=== PATIENT | female | born 1945 | race Caucasian/White ===

== ENCOUNTER 2018-08-06 05:56 | Day surgery (SDC) | payer MEDICARE ==
[2018-08-06] MEDS ORDERED: Lactated Ringers 1,000 ML IV SCH (06:30)
--- NOTE | 2018-08-06 08:50 | OP ---
SURGERY DATE/TIME: 08/06/2018 0751 PREOPERATIVE DIAGNOSIS: Abdominal pain, recent diagnosis of diverticulosis, previous history of colon polyp. POSTOPERATIVE DIAGNOSIS: Small polyp in the cecum and moderate sigmoid diverticulosis. PROCEDURE: Colonoscopy. SURGEON: Dr. Sosa. ANESTHESIA: MAC. Medications given by anesthesia department. HISTORY: The patient is a 72 year-old white female who found herself in overnight stay at [facility] for diagnosis of diverticulosis. She reports she has been having abdominal pain for the past five months. She also reports previous colonoscopy over ten years ago which a polyp was found and removed. The patient was found at this point to need to have endoscopic evaluation. She was appraised of the risks of the procedure including the risk of perforation, phlebitis, untoward reaction to medication, bleeding and missed lesions. The patient verbalized her understanding and desired to have the procedure performed. DESCRIPTION OF PROCEDURE: The patient was given the medications by the anesthesia department. She had continuous pulse oximetry, ECG monitoring, intermittent blood pressure monitoring and tidal CO2 monitoring during the examination. She was placed in the left lateral decubitus position. A digital rectal examination was performed and revealed normal anal sphincter tone and no masses. The flexible Olympus pediatric colonoscope was used to intubate the rectum. A view of the colon was developed sequentially to the cecum. Upon insertion and withdrawal was noted a small polyp in the cecum and this was destroyed using one pass of cold biopsy forceps otherwise it was noted moderate sigmoid diverticulosis. No other mucosal lesions being encountered. The scope was removed from the patient who tolerated the procedure well and was sent back to OP recovery in good condition. The prep was noted to be fair to good.
[2018-08-06] MEDS ORDERED: Zofran 4 MG/2 ML VIAL IV STA (09:02)
[2018-08-06] MEDS ORDERED: Lactated Ringers 1,000 ML IV ONE ×2 (09:27→09:30)
[2018-08-06] MEDS ORDERED: Compazine 10 MG/2 ML IV ONE (09:29)
[2018-08-06 10:21] VITALS: O2SAT 97
[2018-08-06 10:43] VITALS: BP 140/74; PULSE 70
== END 2018-08-06 10:45 | disposition home or self-care (01) ==
LOC: SDC 05:56
PROVIDERS: ATTEND Family Medicine
DX: D12.0 Benign neoplasm of cecum (principal); K57.30 Diverticulosis of large intestine without perforation or abscess without bleeding; R10.9 Unspecified abdominal pain; Z86.010 Personal history of colon polyps
CPT/HCPCS: 88305; 99100; J2405

== ENCOUNTER 2018-10-25 08:42 | Inpatient (IN) | payer MEDICARE ==
[2018-11-22] MEDS ORDERED: Levofloxacin 500MG/100ML D5W 500 MG/100 ML BAG IV STA (08:08)
[2018-11-22] MEDS ORDERED: CLINDAMYCIN-D5W 900 MG/50 ML*** 900 MG/50 ML BAG IV STA (08:12)
[2018-11-22] MEDS ORDERED: Lactated Ringers 1,000 ML IV ONE ×6 (08:24→14:51)
[2018-11-22] MEDS ORDERED: Levofloxacin 500MG/100ML D5W 500 MG/100 ML BAG IV ONE (08:24)
--- NOTE | 2018-11-22 08:25 | HP ---
DATE OF SURGERY: 11/22/2018 HISTORY OF PRESENT ILLNESS: The patient is a 73 year-old with significant diverticulitis attacks, has repeated recurring attacks. She is interested in surgical intervention. PAST MEDICAL HISTORY: Heart disease, hypertension, diabetes, hyperlipidemia, seasonal affective disorder, hypertension, chronic obstructive pulmonary disease. PAST SURGICAL HISTORY: Hysterectomy. Cholecystectomy in the past. Orthopedic surgery right arm in the past. The patient had colonoscopy by Dr. Sosa with moderate sigmoid colon diverticulosis. MEDICATIONS: Albuterol, Alprazolam, Ventolin HFA, Citalopram, hydrochlorothiazide, Symbicort, lisinopril, water pill, Singulair, omeprazole, magnesium oxide. ALLERGIES: PENICILLIN. SULFA. FLAGYL. ZYRTEC. FAMILY HISTORY: Negative in regards to this problem. SOCIAL HISTORY: No smoking or alcohol abuse. REVIEW OF SYSTEMS: Fourteen systems reviewed. No chest pain or palpitations other systems negative or noncontributory as above and per preadmission questionnaire. PHYSICAL EXAMINATION: GENERAL: No acute distress. HEENT: Sclerae nonicteric. NECK: No JVD. CHEST: Equal excursion, nonlabored breathing. CVS: Regular rate and rhythm. ABDOMEN: Soft. No peritoneal signs. EXTREMITIES: No significant edema. NEURO: Alert, oriented, moving extremities symmetrically. No gross motor deficits noted. IMPRESSION: Recurrent symptomatic diverticular disease and diverticulitis attacks. The patient has had enough episodes and desires proceed with surgical intervention. She and her family were discussed at length the risk of the procedure, consideration of resection, partial colectomy with planned re-anastomosis. Plan laparoscopic assisted partial colectomy with re-anastomosis possible open as well as colonoscopy. She understands the general risk of anesthesia, deep venous thrombosis, pulmonary embolism, pneumonia, risk of anastomotic complications or dehiscence, leak or fistula formation, risk of ureter, bowel or bladder issues or injury, risk of adhesions or obstruction, risk of cardiopulmonary event, risk of ileus, risk of hernia formation possible need for much larger incision. She understands we will start out laparoscopically, will need some incision to remove the specimen and depending on the degree of her adhesions. She understands all the above but not limited to. She also understands the fact of what we excise will not have recurrent diverticulitis but if she has some diverticulitis throughout the colon she could have recurrent attacks in the remaining colon in the future. She understands and agrees to the planned procedure, will proceed with laparoscopic assisted partial colectomy possible open, colonoscopy and plan re-anastomosis.
[2018-11-22] MEDS ORDERED: ENTEREG 12 MG PO SCH (08:30)
[2018-11-22] MEDS ORDERED: XYLOCAINE 1% HCL 20 ML MDV ONE (08:40)
[2018-11-22] MEDS ORDERED: Sensorcaine 0.25% 10 ML ONE (09:06)
[2018-11-22] MEDS: Lactated Ringers 1,000 ML IV SCH ×2 (09:22→09:58)
[2018-11-22] MEDS ORDERED: Versed 2 MG/2 ML Injection IV ONE (09:30)
[2018-11-22] MEDS ORDERED: Transderm Scop 1.5MG Patch TOP ONE (09:31)
[2018-11-22] MEDS ORDERED: Versed 2 MG/2 ML Injection ONE ×2 (09:33→11:32)
[2018-11-22] MEDS ORDERED: Transderm Scop 1.5MG Patch ONE (09:34)
[2018-11-22] MEDS ORDERED: DUONEB 0.5-3 MG/3 ml Neb IH ONE ×2 (10:37→10:40)
[2018-11-22] MEDS ORDERED: SUBLIMAZE 100 MCG/2 ML ONE (11:32)
[2018-11-22] MEDS ORDERED: Amidate 20 MG/10 ML IV ONE (11:32)
[2018-11-22] MEDS ORDERED: Zemuron 100 MG/10 ML ONE ×3 (11:32→15:05)
[2018-11-22] MEDS ORDERED: Astramorph-Pf 5 MG/10 ML ONE (11:34)
[2018-11-22] MEDS ORDERED: XYLOCAINE 2%/Epi 1:200000 20ML VIAL MPF ONE (11:35)
[2018-11-22 11:39] LABS: ABO TYPING O; Antibody Screen NEGATIVE (NEGATIVE); RH TYPING POSITIVE
[2018-11-22 13:36] LABS: A-aADO2 74; ABG HEMOGLOBIN 12.5; ABG POTASSIUM 3.4 (3.5-5.1); ARTERIAL BLD GAS O2 SATURATION 99.9 % (95-100); ARTERIAL BLOOD GAS BASE EXCESS -1.8 (-2.0-2.0); ARTERIAL BLOOD GAS FIO2 50 %; ARTERIAL BLOOD GAS PCO2 39 mmHg (35-45); ARTERIAL BLOOD GAS PO2 234 mmHg (75-100); ARTERIAL BLOOD GAS pH 7.38 (7.35-7.45); CARBOXYHEMOGLOBIN 1.8 % THgb (0.0-6.9); HCO3- 23.1 (22-28); HGB O2 SAT 96.6 g/dF (94-100); Methhemoglobin 1.4 % (1.4-1.5); paO2 pAO1 0.76
[2018-11-22 13:37] LABS: ABG SITE ARTLINE
[2018-11-22] MEDS ORDERED: MARCAINE 0.5%-EPI 1:200,000 VL IJ ONE (14:03)
[2018-11-22 15:03] LABS: Appearance CLEAR (CLEAR); Bilirubin NEGATIVE (NEGATIVE); Blood SMALL Ery/ul (0-5); Glucose NEGATIVE (NEGATIVE); Ketones TRACE (NEGATIVE); Leukocyte Esterase NEGATIVE (NEGATIVE); Mucus SLIGHT /HPF (NEGATIVE); Nitrite NEGATIVE (NEGATIVE); Protein,Urine Dip NEGATIVE (Negative); Specific Gravity 1.005 (1.005-1.025); Urobilinogen NEGATIVE mg/dL (0-1)
[2018-11-22] MEDS ORDERED: BREVIBLOC 100 MG/10 ML IV ONE (16:11)
[2018-11-22] MEDS ORDERED: BRIDION 200MG/2ML IV ONE (16:19)
[2018-11-22] MEDS ORDERED: Zofran 4 MG/2 ML VIAL ONE ×2 (16:20→17:22)
[2018-11-22] MEDS ORDERED: Compazine 10 MG/2 ML ONE (17:38)
[2018-11-22] MEDS ORDERED: Zofran 4 MG/2 ML VIAL IV PRN (19:29)
[2018-11-22] MEDS ORDERED: BENADRYL 50 MG/ML IV PRN (19:29)
[2018-11-22] MEDS ORDERED: DEMEROL 50 MG IV PRN (19:29)
[2018-11-22] MEDS ORDERED: MORPHINE SULFATE 2 MG INJ IV PRN (19:29)
[2018-11-22] MEDS ORDERED: Nubain 10 MG/ML IV PRN (19:29)
[2018-11-22] MEDS ORDERED: CLARITIN 10 MG PO PRN (19:29)
[2018-11-22] MEDS ORDERED: Narcan 0.4 MG/ML IV PRN (19:29)
[2018-11-22] MEDS ORDERED: HOLD NARCOTIC ANALGESICS AND SEDATIVES X24 HR MC PRN (19:29)
[2018-11-22] MEDS ORDERED: TYLENOL 325 MG PO PRN (20:12)
[2018-11-22] MEDS ORDERED: DEXTROSE 5% -NACL 0.9% 1000 ML + KCl 20 MEQ 1,000 ML IV SCH (20:30)
[2018-11-22] MEDS ORDERED: DEXTROSE 5% -NACL 0.9% 1000 ML + KCl 20 MEQ 1,000 ML IV ONE (20:59)
[2018-11-22] MEDS: Sodium Chloride 0.9% 10 ML FLUSH Syringe IJ SCH ×2 (21:00→21:05)
[2018-11-22] MEDS: ENTEREG 12 MG PO SCH (21:06)
[2018-11-22] MEDS: D5W/0.45NS W/ 20mEq KCl 1000 ML 1,000 ML IV SCH (22:57)
[2018-11-23] MEDS: Sodium Chloride 0.9% 10 ML FLUSH Syringe IJ SCH ×3 (04:57→22:28)
[2018-11-23] MEDS: PERCOCET TABLET 5/325MG PO PRN ×5 (04:57→17:33)
[2018-11-23] MEDS ORDERED: PROVENTIL COMMON CANISTER IH PRN (05:30)
[2018-11-23] MEDS ORDERED: Advair Hfa 230/21 Mcg COMMON CANISTER IH SCH (07:00)
[2018-11-23] MEDS ORDERED: TYLENOL 325 MG PO PRN (07:14)
[2018-11-23] MEDS ORDERED: xanAX 0.25 MG PO SCH (07:30)
[2018-11-23] MEDS: D5W/0.45NS W/ 20mEq KCl 1000 ML 1,000 ML IV SCH ×2 (08:26→17:01)
--- NOTE | 2018-11-23 09:09 | OP ---
SURGERY DATE/TIME: 11/22/2018 1147 PREOPERATIVE DIAGNOSIS: Recurrent diverticulitis concentrated in the sigmoid area, need for resection. POSTOPERATIVE DIAGNOSES: 1) Recurrent diverticulitis concentrated in the sigmoid area, need for resection, phlegmon reaction left lower quadrant to the distal descending. 2) Left inguinal hernia. PROCEDURES: 1) Laparoscopic assisted partial left colectomy and primary colorectal anastomosis (25 EA). 2) Laparoscopic take down of splenic flexure. 3) Completion colonoscopy to transverse colon (to confirm airtight viable tension-free colorectal anastomosis). 4) Laparoscopic repair left inguinal hernia (suture). SURGEON: Dr. Jay Hays. ANESTHESIA: General. ESTIMATED BLOOD LOSS: 75 cc. INDICATIONS: As noted above. Risks and benefits explained in detail but not limited to and consent obtained. DESCRIPTION OF PROCEDURE AND FINDINGS: The patient is taken to the operating room. General anesthesia induced. Abdomen prepped and draped in usual sterile fashion. After official time out and no disagreement with planned procedure, she was placed in lithotomy position. Incision made supraumbilical area. Fascia grasped. Veress needle inserted. Pneumoperitoneum accomplished opening pressure 0 to 15. A 5 mm bladeless and camera were inserted without difficulty followed by left upper quadrant 5 mm port, left lower quadrant 5 mm port. Otherwise there is a phlegmon reaction of the diverticula in the left lower quadrant. It was felt it needed taken down, taking splenic flexure down and this was accomplished at white line of Toldt. Dissection carried up towards the splenic flexure with aid of cautery and then the LigaSure device was used to take the splenic flexure down carefully mobilizing quite a length of colon downward for tension-free anastomosis later in the procedure. At this point 7 cm lower midline incision was made. Dissection carried down through the peritoneum, midline entered sharply and carefully this midline 7 cm incision. GelSeal cap was placed and some of these concrete adhesions along the left pelvic side wall were taken down to the shelving portion to allow it to be free enough. Left ureter was visualized noted and the right ureter was gently protected as well. The colon was carefully inspected. In the distal descending as well as the sigmoid was carefully visualized. The patient had some diverticula throughout it appeared but it appeared to be soft pliable colon proximal to the thickened or phlegmon scarred in distal descending and sigmoid colon. To allow for enough length to reach the rectum, it was felt this wound could drain part of the descending colon. Transecting EndoGIA stapler mesentery taken down and divided with LigaSure device. At this point for better visualization the abdomen was re-insufflated and GelSeal cap placed back on and during the remainder of the dissection taken the mesentery down with aid of LigaSure device. It should be noted that this is not a cancer operation and there was no point in trying to remove old sundeep compartments. Phlegmon part of the colon was carefully taken down to the rectal area which was carefully cleared circumferentially. The contour stapler was then used to transect the rectal stump without difficulty. The specimen is passed off. Again, the colon had been much more thicker, more concentrated diverticula than soft, pliable and there seemed to be a few diverticula. It was felt trying to take any additional length might risk tension problems on anastomosis and add anastomotic complications. As this was pliable, much better looking colon it was felt anastomosis should be created here. The patient had been explained short of taking the whole colon out, she was at risk of having some other diverticular attacks down the road. Hopefully taking out this part of the left colon would reduce the incidence. At this point the wound carefully inspected. The ureters had been protected on the left and the right. Good hemostasis was noted. The proximal limb easily reached the rectal stump and was tension-free and not a lot of extra length left and tension-free environment. Gauze pads were packed around the wound protector. The proximal colon limb was carefully opened. Sizes were checked. It was felt she had quite a small colon and a largest size that could be used is a 25 EA. Going larger than that would only split the colon and create risk of complications. Therefore EA-25 was opened and placed proximally after getting tip and then was restapled and the vein tip passed through adjacent to the staple line secured with 3-0 PDS, this was followed by #1 down below and the EA sizer easily passed up through the rectum and this was accomplished. We had to take time to reposition on the table. At this point the 25 EA ligature was carefully passed up the rectum to the staple line just right at the staple line itself, directly adjacent to the mid portion of the staple line. The mid portion of the staple line snapped on to the anvil and then stapler was then slowly and carefully tightened, enveloping entrapping any extraneous tissue in the anastomosis. Once this was accomplished the stapler carefully fired starting in the green zone. It was then backed off and these were removed and passed off. Saline was instilled into the pelvis. The proximal end of the colon carefully pinched off with the tech field administrative assistant with the scope safely passed through the anastomosis widely patent, viable, tension-free and was air tight. There was a little pulsatile ooze right at the staple line and this was watched for a few seconds. Good hemostasis noted. There were no signs of any active bleeding. It was felt there was no other intervention warranted. Again, there was a quite viable, tension-free widely patent anastomosis that was air tight. The scope was then passed up through the transverse colon and pulled out. The colon was then decompressed. It should be noted that prep was not great as she had some solid stool throughout the colon. The colon and rectum were decompressed. The scope was removed. Pictures had been taken. At this point gloves and gowns were changed. DIANA drain placed in the left gutter out through a lateral port wound. DIANA drain placed to bulb suction. The abdomen was re-insufflated. Copious amount of irrigation irrigating until clear. Splenic flexure she had good hemostasis. No signs of any active bleeding. Lap count, instrument counts were correct. It should be noted that just prior to decompressing pneumoperitoneum, she definitely had a left inguinal hernia. Concern whether some small bowel could be trapped in this down the road. It was felt that this would warrant repair laparoscopically. 0 PDS was used to suture close and repair this hernia in a purse string fashion, repairing the hernia. Again, it was not safe to use mesh given the limited prepped colon and due to anastomosis. Copious amount of irrigation irrigating until clear. The hernia repaired with PDS suture. At this point pneumoperitoneum was decompressed. Ports removed. The wound protector had been removed, clean gloves and instruments were used. The fascia was then closed in sequential running 0 PDS. Subcu irrigated out. Skin loosely stapled. Some Iodoform packing placed to allow for any drainage. Port incisions were closed with staple as well. The patient tolerated the procedure well. Anesthesia had done intrathecal earlier and had planned to do some tap blocks in addition. Sterile dressing and abdominal binder. The patient tolerated the procedure well. There were no immediate complications. Findings discussed with the family out in the waiting area. We had taken out the most severe diverticular segment. She had quite a few diverticula throughout the colon. There is small risk of other attacks down the road but hopefully removing this part of the colon greatly improves her overall situation.
--- NOTE | 2018-11-23 09:20 | PCM.HP ---
History of Present Illness - Chief Complaint Chief Complaint: Partial Colectomy with reanastamosis History of Present Illness: is a 73 year old female pt of mine from [facility] with pmhx asthma, htn, hyperlipidemia, diverticulitis, and hyperglycemia who had a partial colectomy with reanastamosis yesterday with Dr. Kilgore. She has been doing well, pain controlled, 07/07 currently. Not passing gas yet. - Review of Systems Constitutional: No Fever Respiratory: No Cough Abdominal/Gastrointestinal: Abdominal Pain Medications & Allergies Home Medications: Home Medication List Alprazolam 0.25 mg [xanAX 0.25 MG] 0.25 mg PO UD 07/29/18 [History Confirmed 11/22/18] Hydrocodone Bit/Acetaminophen [Hydrocodon-Acetaminoph 7.5-325] 1 each PO UD 05/18 [History Confirmed 11/22/18] Lisinopril [Zestril] 40 mg PO DAILY 07/29/18 [History Confirmed 11/22/18] Budesonide/Formoterol Fumarate [Symbicort 160-4.5 Mcg Inhaler] 6 gm IH DAILY [History Confirmed 11/22/18] Allergies/Adverse Reactions: Allergies Allergy/AdvReac Type Severity Reaction Status Date / Time Penicillins Allergy Unknown Verified 11/22/18 11:16 Sulfa (Sulfonamide AdvReac vomiting, Verified 11/22/18 11:16 Antibiotics) dizziness [Sulfa(Sulfonamide Antibiotics)] - Past Medical History Past Medical History: Yes Neurological History: Migraines ENT History: No Pertinent History Cardiac History: High Cholesterol, Hypertension Respiratory History: Asthma Endocrine Medical History: No Pertinent History Musculoskelatal History: No Pertinent History GI Medical History: Hemorrhoids History: No Pertinent History Pyscho-Social History: No Pertinent History Reproductive Disorders: No Pertinent History, Fibroids Comment: lung mass, mitral valve regurgitation. TMJ - Female History Are you now?: No - Past Surgical History Past Surgical History: Yes Neuro Surgical History: No Pertinent History Cardiac History: No Pertinent History Respiratory Surgery: No Pertinent History GI Surgical History: Cholecystectomy Genitourinary Surgical Hx: No Pertinent History Musculskeletal Surgical Hx: Orthopedic Surgery Female Surgical History: Hysterectomy Other Surgical History: fx rt shoulder 2011 w/ salo placed - Social History Smoking Status: Never smoker Exposure to second hand smoke: No Alcohol: None Drug Use: none - Physical Exam Vital Signs: Vital Signs - 24 hr Temp Pulse Resp BP BP BP BP 11/23/18 08:00 97 F 78 18 109/47 97/50 102/47 11/23/18 06:04 75 20 11/23/18 04:00 99.3 F 84 18 111/37 103/71 11/23/18 00:01 77 11/23/18 00:00 77 14 122/39 11/22/18 23:00 77 14 116/37 11/22/18 22:00 75 14 115/38 11/22/18 21:15 73 13 130/42 11/22/18 20:45 72 13 116/37 11/22/18 20:00 98.3 F 73 14 130/42 11/22/18 19:45 80 17 151/56 11/22/18 19:37 11/22/18 19:30 98.3 F 73 17 126/48 130/41 11/22/18 10:48 68 16 11/22/18 10:44 98.7 F 71 16 121/98 11/22/18 09:54 98.7 F 71 16 121/98 11/22/18 09:39 98.7 F 71 16 121/98 Pulse Ox 11/23/18 08:00 96 11/23/18 06:04 97 11/23/18 04:00 98 11/23/18 00:01 11/23/18 00:00 11/22/18 23:00 98 11/22/18 22:00 98 11/22/18 21:15 99 11/22/18 20:45 100 11/22/18 20:00 99 11/22/18 19:45 98 11/22/18 19:37 98 11/22/18 19:30 99 11/22/18 10:48 95 11/22/18 10:44 98 11/22/18 09:54 98 11/22/18 09:39 98 Oxygen-Last 24 hours O2 Percentage 1 Liter = 24% O2 Percentage 2 Liters = 28% O2 Percentage 2 Liters = 28% O2 Percentage 2 Liters = 28% O2 Percentage 2 Liters = 28% O2 Percentage 2 Liters = 28% O2 Percentage 2 Liters = 28% O2 Percentage 2 Liters = 28% O2 Percentage 2 Liters = 28% O2 Percentage 2 Liters = 28% General Appearance: no apparent distress, alert Neurologic Exam: oriented x 3, cooperative Eye Exam: eyes nml inspection Ears, Nose, Throat Exam: dry mucous membranes Respiratory Exam: normal breath sounds, lungs clear, No crackles/rales, No rhonchi, No wheezing Cardiovascular Exam: regular rate/rhythm, normal heart sounds, No murmur Gastrointestinal/Abdomen Exam: soft, tenderness, other (dressing dry, intact. OCTAVIA drain present with serosanguinous drainage), No normal bowel sounds ( hypoactive but present) Back Exam: normal inspection, No rash Extremity Exam: normal inspection, No pedal edema, No swelling Skin Exam: normal color, warm, dry, No rash Wound Assessment: Skin/Wound Assessment Wound/Incision Assessment Start: 11/22/18 16: 57 Text: Status: Active Freq: Q4H Protocol: Document 11/23/18 08:00 SWATI (Rec: 11/23/18 08:35 [id number]) Wound/Incision Assessment Abdomen Wound Assessment Shift Assessment Wound Type Incision Wound Stage Non Pressure Wound Dressing Status Dry & Intact Drainage circled Drainage Amount Minimal Drainage Description Sanguineous Drainage Odor None/Absent General Appearance Clean/Dry Primary Dressing bandaids;gauze dressing Comment Pt has 3 puncture sites with bandaids cdi; 2 sites with gauze 4x4 dressing- midline site has a shadow of sangeous drainage noted- drainage marked with no additional at this time; pt has a octavia drain to left abdomen which has serosangeous drainage (60ml) noted and bulb is compressed. Left Abdomen Drain Type OCTAVIA drain Drainage Description Serosanguineous Odor None/Absent Wound Photo Photo Taken No Results - Labs Lab/Micro Results: Lab Results-Last 24 Hours 11/22/18 11/22/18 11/22/18 Range/Units 10:20 12:05 13:33 Puncture Site ARTLINE pCO2 39 (35-45) mmHg pO2 234 H* (75-100) mmHg Base Excess -1.8 (-2.0-2.0) O2 Saturation 96.6 (94-100) g/dF ABG pH 7.38 (7.35-7.45) ABG HCO3 23.1 (22-28) ABG O2 Sat (Measured) 99.9 (95-100) % Remi Test NOT APPLICABLE A-a Gradient 74 a/A Ratio 0.76 Hemoglobin 12.5 Carboxyhemoglobin 1.8 (0.0-6.9) % THgb Methemoglobin 1.4 (1.4-1.5) % Potassium 3.4 L (3.5-5.1) Temperature 37.0 C POC O2 Flow Rate 50 % Urine Color STRAW (YELLOW) Urine Appearance CLEAR (CLEAR) Urine pH 6.0 (5-6) Ur Specific Tolstoy 1.005 (1.005-1.025) Urine Protein NEGATIVE (Negative) Urine Ketones TRACE (NEGATIVE) Urine Blood SMALL (0-5) Deon/ul Urine Nitrite NEGATIVE (NEGATIVE) Urine Bilirubin NEGATIVE (NEGATIVE) Urine Urobilinogen NEGATIVE (0-1) mg/dL Ur Leukocyte Esterase NEGATIVE (NEGATIVE) Urine WBC (Auto) NONE (0-5) /HPF Urine RBC (Auto) NONE (0-2) /HPF U Epithel Cells (Auto) NONE (FEW) /HPF Urine Bacteria (Auto) NONE (NEGATIVE) /HPF Urine Mucus (Auto) SLIGHT (NEGATIVE) /HPF Urine Glucose NEGATIVE (NEGATIVE) mg/dL ABO Group O Rh Factor POSITIVE Antibody Screen NEGATIVE (NEGATIVE) - Other Procedures and Tests Respiratory Therapy 11/22/18 10:48 Respiratory Therapy Assessment DAILY 11/22/18 10:49 Peak Expiratory Flow Rate ONCE 11/22/18 19:29 Oxygen Nasal Cannula 3 lpm Assessment/Plan (1) S/P partial colectomy Current Visit: Yes Status: Acute Assessment & Plan: POD #1, she seems to be doing quite well. Per surgery, thank you. Code(s): Z90.49 - ACQUIRED ABSENCE OF OTHER SPECIFIED PARTS OF DIGESTIVE TRACT (2) HTN (hypertension) Current Visit: Yes Status: Chronic Qualifiers: Hypertension type: essential hypertension Qualified Code(s): I10 - Essential (primary) hypertension Assessment & Plan: stable Code(s): I10 - ESSENTIAL (PRIMARY) HYPERTENSION (3) Asthma Current Visit: Yes Status: Chronic Qualifiers: Asthma severity: mild Asthma persistence: intermittent Asthma complication type: uncomplicated Qualified Code(s): J45.20 - Mild intermittent asthma, uncomplicated Code(s): J45.909 - UNSPECIFIED ASTHMA, UNCOMPLICATED (4) Hyperlipidemia Current Visit: Yes Status: Chronic Qualifiers: Hyperlipidemia type: unspecified Qualified Code(s): E78.5 - Hyperlipidemia , unspecified Code(s): E78.5 - HYPERLIPIDEMIA, UNSPECIFIED (5) Hyperglycemia Current Visit: Yes Status: Chronic Assessment & Plan: will check labs, add accuchecks if necessary Code(s): R73.9 - HYPERGLYCEMIA, UNSPECIFIED
[2018-11-23] MEDS: Zestril 20 MG PO SCH (09:25)
[2018-11-23] MEDS: ENOXAPARIN SODIUM SQ SCH (09:26)
[2018-11-23 09:55] LABS: Hematocrit 41.6 % (35-47); Hemoglobin 13.6 gm/dl (12.0-16.0); Mean Cell Volume 95.6 fl (78-100); Mean Corpuscular Hemoglobin 31.3 pg (26-32); Mean Corpuscular Hgb Concent. 32.7 g/dl (32-36); Mean Platelet Volume 10.9 fl (6-9.5); Platelet Count 137 K/mm3 (150-450); Red Blood Count 4.35 M/mm3 (4.1-5.4); Red Cell Distribution Width 13.8 % (11.5-14.0); White Blood Count 11.6 K/mm3 (4.0-10.5)
[2018-11-23] MEDS ORDERED: NON-FORMULARY ITEM (Budesonide/Formoterol Fumarate [Symbicort 160-4.5 Mcg Inhaler] 6 GM) IH SCH (10:00)
[2018-11-23] MEDS ORDERED: NON-FORMULARY ITEM (Lisinopril [Zestril] 40 MG) PO SCH (10:00)
[2018-11-23 10:18] LABS: ALBUMIN 2.9 g/dL (3.5-5.0); ALKALINE PHOSPHATASE 62 U/L (38-126); BLOOD UREA NITROGEN 7 mg/dL (7-17); CHLORIDE 109 mmol/L (98-107); Calcium 8.2 mg/dL (8.4-10.2); Carbon Dioxide 24 mmol/L (22-30); Glucose 114 mg/dL (74-106); Potassium 3.9 mmol/L (3.5-5.1); SGOT/AST 25 U/L (14-36); SGPT/ALT 13 U/L (0-35); SODIUM 139 mmol/L (137-145); Total Protein 5.5 g/dL (6.3-8.2)
[2018-11-23] MEDS: ENTEREG 12 MG PO SCH ×2 (10:27→21:59)
[2018-11-23] MEDS ORDERED: MORPHINE SULFATE 2 MG INJ IV PRN (19:30)
[2018-11-23] MEDS ORDERED: MORPHINE SULFATE 4 MG INJ IV PRN (19:30)
[2018-11-23] MEDS ORDERED: Zofran 4 MG/2 ML VIAL IV PRN (19:30)
[2018-11-23] MEDS: PATIENT OWN MEDICATION IH SCH (20:48)
[2018-11-23] MEDS: NORCO 5/325 MG PO PRN (22:13)
[2018-11-24] MEDS: NORCO 5/325 MG PO PRN ×4 (02:02→22:03)
[2018-11-24] MEDS: D5W/0.45NS W/ 20mEq KCl 1000 ML 1,000 ML IV SCH ×2 (02:34→12:48)
[2018-11-24] MEDS: Sodium Chloride 0.9% 10 ML FLUSH Syringe IJ SCH ×3 (05:58→22:05)
[2018-11-24 06:10] LABS: Hematocrit 38.9 % (35-47); Hemoglobin 12.7 gm/dl (12.0-16.0); Mean Cell Volume 95.3 fl (78-100); Mean Corpuscular Hemoglobin 31.1 pg (26-32); Mean Corpuscular Hgb Concent. 32.6 g/dl (32-36); Platelet Count 145 K/mm3 (150-450); Red Blood Count 4.08 M/mm3 (4.1-5.4); Red Cell Distribution Width 13.8 % (11.5-14.0); White Blood Count 11.3 K/mm3 (4.0-10.5)
[2018-11-24 06:19] LABS: ANION GAP 7.5 MEQ/L (5-15); BLOOD UREA NITROGEN 4 mg/dL (7-17); CHLORIDE 111 mmol/L (98-107); Calcium 8.6 mg/dL (8.4-10.2); Carbon Dioxide 24 mmol/L (22-30); Creatinine 1 0.62 mg/dL (0.52-1.04); Glucose 122 mg/dL (74-106); Potassium 3.8 mmol/L (3.5-5.1); SODIUM 139 mmol/L (137-145)
[2018-11-24] MEDS: PATIENT OWN MEDICATION IH SCH ×3 (07:42→21:00)
--- NOTE | 2018-11-24 09:00 | PCM.NOTE ---
Date and Time: 11/24/18 0853 Subjective Assessment: She is up walking in the [place]! No flatus yet. Still on ice chips. - Review of Systems Constitutional: No Fever Abdominal/Gastrointestinal: No Vomiting Objective Exam General Appearance: no apparent distress, alert Neurologic Exam: oriented x 3, cooperative Skin Exam: normal color, warm, dry, No rash Wound Assessment: Skin/Wound Assessment Wound/Incision Assessment Start: 11/22/18 16: 57 Text: Status: Active Freq: Q4H Protocol: Document 11/24/18 04:00 BW (Rec: 11/24/18 04:20 BW [id number]) Wound/Incision Assessment Abdomen Wound Assessment Shift Assessment Wound Type Incision Wound Stage Non Pressure Wound Dressing Status Drainage circled Drainage Amount Minimal Drainage Description Sanguineous Drainage Odor None/Absent General Appearance Clean/Dry Primary Dressing bandaids;gauze dressing Comment Pt has 3 laproscopic sites with bandaids in place-CDI, 2 sites with sterile gauze- midline incision with shadow noted to dressing that has no change; Diana is present in the left lower abdomen, bulb compressed with slight Serosanguineous drainage noted . Abdominal binder in place. Left Abdomen Drain Type DIANA drain Drainage Description Serosanguineous Odor None/Absent Wound Photo Photo Taken No Eye Exam: eyes nml inspection Respiratory Exam: normal breath sounds, lungs clear, No crackles/rales, No rhonchi, No wheezing Cardiovascular Exam: regular rate/rhythm, normal heart sounds, No murmur Gastrointestinal/Abdomen Exam: soft, other (dressing c/d/i DIANA drain present with serosanguinous drainage.), No normal bowel sounds (hypoactive but present) Extremity Exam: No pedal edema, No swelling Back Exam: normal inspection, No rash OBJECTIVE DATA Vital Signs: Vital Signs - 24 hr Temp Pulse Resp BP BP Pulse Ox 11/24/18 08:00 97.7 F 82 20 115/56 93 L 11/24/18 07:44 80 18 94 L 11/24/18 04:00 99.0 F 81 18 110/61 92 L 11/23/18 23:55 18 11/23/18 23:37 98.7 F 85 18 111/55 94 L 11/23/18 21:48 78 20 91 L 11/23/18 20:00 98.1 F 78 20 116/51 94 L 11/23/18 17:03 95 08/27/19 16:00 79 23 115/58 102/47 96 11/23/18 12:00 97.6 F 71 16 103/55 102/47 94 L Oxygen-Last 24 hours O2 Percentage 1 Liter = 24% Pain Assessment - Last Documented Pain Intensity 5 Pain Scale Used 0-10 Pain Scale Intake and Output: Intake & Output 11/21/18 11/22/18 11/23/18 11/24/18 11:59 11:59 11:59 11:59 Intake Total 846 2537 Output Total 1550 1845 Balance -704 692 Weight 61.1 kg 66.8 kg Lab Results: Lab Results-Last 24 Hours 11/23/18 11/23/18 11/24/18 Range/Units 09:49 09:49 05:15 WBC 11.6 H 11.3 H (4.0-10.5) K/mm3 RBC 4.35 4.08 L (4.1-5.4) M/mm3 Hgb 13.6 12.7 (12.0-16.0) gm/dl Hct 41.6 38.9 (35-47) % MCV 95.6 95.3 (78-100) fl MCH 31.3 31.1 (26-32) pg MCHC 32.7 32.6 (32-36) g/dl RDW 13.8 13.8 (11.5-14.0) % Plt Count 137 L 145 L (150-450) K/mm3 MPV 10.9 H 11.0 H (6-9.5) fl Sodium 139 (137-145) mmol/L Potassium 3.9 (3.5-5.1) mmol/L Chloride 109 H (98-107) mmol/L Carbon Dioxide 24 (22-30) mmol/L Anion Gap 9.0 (5-15) MEQ/L BUN 7 (7-17) mg/dL Creatinine 0.70 (0.52-1.04) mg/dL Estimated GFR > 60.0 ML/MIN Glucose 114 H (74-106) mg/dL Calcium 8.2 L (8.4-10.2) mg/dL Total Bilirubin 0.70 (0.2-1.3) mg/dL AST 25 (14-36) U/L ALT 13 (0-35) U/L Alkaline Phosphatase 62 (38-126) U/L Serum Total Protein 5.5 L (6.3-8.2) g/dL Albumin 2.9 L (3.5-5.0) g/dL 11/24/18 Range/Units 05:15 WBC (4.0-10.5) K/mm3 RBC (4.1-5.4) M/mm3 Hgb (12.0-16.0) gm/dl Hct (35-47) % MCV (78-100) fl MCH (26-32) pg MCHC (32-36) g/dl RDW (11.5-14.0) % Plt Count (150-450) K/mm3 MPV (6-9.5) fl Sodium 139 (137-145) mmol/L Potassium 3.8 (3.5-5.1) mmol/L Chloride 111 H (98-107) mmol/L Carbon Dioxide 24 (22-30) mmol/L Anion Gap 7.5 (5-15) MEQ/L BUN 4 L (7-17) mg/dL Creatinine 0.62 (0.52-1.04) mg/dL Estimated GFR > 60.0 ML/MIN Glucose 122 H (74-106) mg/dL Calcium 8.6 (8.4-10.2) mg/dL Total Bilirubin (0.2-1.3) mg/dL AST (14-36) U/L ALT (0-35) U/L Alkaline Phosphatase (38-126) U/L Serum Total Protein (6.3-8.2) g/dL Albumin (3.5-5.0) g/dL Assessment/Plan (1) S/P partial colectomy Current Visit: Yes Status: Acute Assessment & Plan: Doing great! POD #2 Code(s): Z90.49 - ACQUIRED ABSENCE OF OTHER SPECIFIED PARTS OF DIGESTIVE TRACT (2) HTN (hypertension) Current Visit: Yes Status: Chronic Qualifiers: Hypertension type: essential hypertension Qualified Code(s): I10 - Essential (primary) hypertension Assessment & Plan: stable Code(s): I10 - ESSENTIAL (PRIMARY) HYPERTENSION (3) Asthma Current Visit: Yes Status: Chronic Qualifiers: Asthma severity: mild Asthma persistence: intermittent Asthma complication type: uncomplicated Qualified Code(s): J45.20 - Mild intermittent asthma, uncomplicated Code(s): J45.909 - UNSPECIFIED ASTHMA, UNCOMPLICATED (4) Hyperlipidemia Current Visit: Yes Status: Chronic Qualifiers: Hyperlipidemia type: unspecified Qualified Code(s): E78.5 - Hyperlipidemia , unspecified Code(s): E78.5 - HYPERLIPIDEMIA, UNSPECIFIED (5) Hyperglycemia Current Visit: Yes Status: Chronic Assessment & Plan: low 100s Code(s): R73.9 - HYPERGLYCEMIA, UNSPECIFIED
[2018-11-24] MEDS: Zestril 20 MG PO SCH (10:46)
[2018-11-24] MEDS: ENOXAPARIN SODIUM SQ SCH (10:47)
[2018-11-24] MEDS: ENTEREG 12 MG PO SCH ×2 (10:47→22:05)
[2018-11-24] MEDS: Cipro 500 MG PO SCH (22:04)
[2018-11-25] MEDS: NORCO 5/325 MG PO PRN ×2 (06:22→19:47)
[2018-11-25] MEDS: PATIENT OWN MEDICATION IH SCH ×2 (06:56→20:09)
--- NOTE | 2018-11-25 08:44 | PCM.NOTE ---
Date and Time: 11/25/18 0837 Subjective Assessment: Pt started passing flatus last night. Juan Antonio CLD since last night. She is up walking without difficulty. - Review of Systems Constitutional: No Fever Respiratory: Cough Objective Exam General Appearance: no apparent distress, alert Neurologic Exam: oriented x 3, cooperative Skin Exam: normal color, warm, dry, No rash Wound Assessment: Skin/Wound Assessment Wound/Incision Assessment Start: 11/22/18 16: 57 Text: Status: Active Freq: Q4H Protocol: Document 11/25/18 04:00 (Rec: 11/25/18 05:36 [id number]) Wound/Incision Assessment Abdomen Wound Assessment Shift Assessment Wound Type Incision Wound Stage Non Pressure Wound Dressing Status Changed Drainage Amount Moderate Drainage Description Serosanguineous Drainage Odor None/Absent Surrounding Tissue [place] Topical Solution/Irrigant Saline Irrigant Packing Type Gauze Packing Strips Primary Dressing Non-Adherent Gauze Pads Comment laproscopic incisons covered with bandaids and some gauze, all intact. Midline incision covered with island dressing. Left Abdomen Drain Type DIANA drain Drainage Description Serosanguineous Odor None/Absent Wound Photo Photo Taken No Respiratory Exam: normal breath sounds, lungs clear, No crackles/rales, No rhonchi, No wheezing Cardiovascular Exam: regular rate/rhythm, normal heart sounds, No murmur Gastrointestinal/Abdomen Exam: soft, normal bowel sounds, tenderness (mild, LUQ. otherwise nttp), other (wound dressed, c/d/i), No distention Extremity Exam: No pedal edema, No swelling Back Exam: normal inspection, No rash OBJECTIVE DATA Vital Signs: Vital Signs - 24 hr Temp Pulse Resp BP Pulse Ox 11/25/18 07:19 98 F 73 20 117/57 94 L 11/25/18 06:58 78 16 92 L 11/25/18 04:00 98.3 F 73 19 116/57 94 L 11/25/18 00:00 98.7 F 86 19 121/58 94 L 11/24/18 20:43 77 17 94 L 11/24/18 20:00 17 11/24/18 19:56 97.9 F 84 19 135/83 93 L 11/24/18 16:00 97.9 F 72 18 133/62 96 11/24/18 12:00 97.4 F 79 22 122/87 93 L Pain Assessment - Last Documented Pain Intensity 4 Pain Scale Used 0-10 Pain Scale Intake and Output: Intake & Output 11/22/18 11/23/18 11/24/18 11/25/18 11:59 11:59 11:59 11:59 Intake Total 846 2537 480 Output Total 1550 9845 310 Balance -704 692 170 Weight 61.1 kg 66.8 kg 66.8 kg Multi-Disciplinary Progress Notes: Multi-Disciplinary Progress Notes 11/24/18 10:10 (created 11/24/18 13:24) Case Management Note by Jane Rodrigues REVIEWED DISCHARGE PLAN, CONTINUES TO PLAN TO RETURN HOME TO PRE EPISODIC LEVEL OF [facility]. DENIES NEEDS FOR DISCHARGE. REPORTS THAT SHE HAS BEEN OUT WALKING IN THE HALLS WITH . Initialized on 11/24/18 13:24 - END OF NOTE Assessment/Plan (1) S/P partial colectomy Current Visit: Yes Status: Acute Assessment & Plan: doing great, she would like to go home, but surgery is managing. Code(s): Z90.49 - ACQUIRED ABSENCE OF OTHER SPECIFIED PARTS OF DIGESTIVE TRACT (2) HTN (hypertension) Current Visit: Yes Status: Chronic Qualifiers: Hypertension type: essential hypertension Qualified Code(s): I10 - Essential (primary) hypertension Assessment & Plan: stable Code(s): I10 - ESSENTIAL (PRIMARY) HYPERTENSION (3) Asthma Current Visit: Yes Status: Chronic Qualifiers: Asthma severity: mild Asthma persistence: intermittent Asthma complication type: uncomplicated Qualified Code(s): J45.20 - Mild intermittent asthma, uncomplicated Code(s): J45.909 - UNSPECIFIED ASTHMA, UNCOMPLICATED (4) Hyperlipidemia Current Visit: Yes Status: Chronic Qualifiers: Hyperlipidemia type: unspecified Qualified Code(s): E78.5 - Hyperlipidemia , unspecified Code(s): E78.5 - HYPERLIPIDEMIA, UNSPECIFIED (5) Hyperglycemia Current Visit: Yes Status: Chronic Code(s): R73.9 - HYPERGLYCEMIA, UNSPECIFIED
[2018-11-25] MEDS: ENTEREG 12 MG PO SCH ×2 (09:51→22:51)
[2018-11-25] MEDS: Cipro 500 MG PO SCH ×2 (09:52→22:51)
[2018-11-25] MEDS: ENOXAPARIN SODIUM SQ SCH (09:52)
[2018-11-25] MEDS: Zestril 20 MG PO SCH (09:52)
[2018-11-25] MEDS: D5W/0.45NS W/ 20mEq KCl 1000 ML 1,000 ML IV SCH ×2 (09:53→19:46)
[2018-11-26] MEDS: D5W/0.45NS W/ 20mEq KCl 1000 ML 1,000 ML IV SCH (04:09)
[2018-11-26 06:25] LABS: Hematocrit 37.7 % (35-47); Hemoglobin 12.2 gm/dl (12.0-16.0); Mean Cell Volume 96.2 fl (78-100); Mean Corpuscular Hemoglobin 31.1 pg (26-32); Mean Corpuscular Hgb Concent. 32.4 g/dl (32-36); Mean Platelet Volume 12.4 fl (6-9.5); Platelet Count 120 K/mm3 (150-450); Red Blood Count 3.92 M/mm3 (4.1-5.4); Red Cell Distribution Width 13.7 % (11.5-14.0); White Blood Count 6.5 K/mm3 (4.0-10.5)
[2018-11-26 06:42] LABS: ANION GAP 9.1 MEQ/L (5-15); BLOOD UREA NITROGEN 5 mg/dL (7-17); CHLORIDE 112 mmol/L (98-107); Calcium 8.9 mg/dL (8.4-10.2); Carbon Dioxide 25 mmol/L (22-30); Creatinine 1 0.62 mg/dL (0.52-1.04); Glucose 108 mg/dL (74-106); Potassium 4.2 mmol/L (3.5-5.1); SODIUM 141 mmol/L (137-145)
[2018-11-26] MEDS: PATIENT OWN MEDICATION IH SCH (07:43)
[2018-11-26 08:04] VITALS: BP 134/60
--- NOTE | 2018-11-26 08:56 | PCM.DS ---
Discharge Summary Date of Admission: 11/22/18 09:04 Admitting Physician: BRITTANI NICOLE Consults: Consults on Case 11/22/18 19:30 Consult Physician ROUTINE Primary Care Provider: CECIL PEPPER Allergies Allergies Penicillins Allergy (Unknown, Verified 11/22/18 11:16) Sulfa (Sulfonamide Antibiotics) [Sulfa(Sulfonamide Antibiotics)] Adverse Reaction (Verified 11/22/18 11:16) vomiting, dizziness Hospital Summary - Hospital Course Hospital Course: is a 73 year old female pt of mine from [facility] with pmhx asthma, htn, hyperlipidemia, diverticulitis, and hyperglycemia who had a partial colectomy with reanastamosis on 11/22/[address] Kilgore. She has been doing well, pain controlled, started passing gas yesterday. Is nannette reg diet today. Would like to d/c to home. Still has DIANA drain. If OK with surgery with d/c pt to home. - Vitals & Intake/Output Vital Signs: Vital Signs Temperature 98.6 F 11/26/18 08:00 Pulse Rate 70 11/26/18 08:00 Respiratory Rate 18 11/26/18 08:00 Blood Pressure 134/60 11/26/18 08:00 O2 Sat by Pulse Oximetry 96 11/26/18 08:00 Oxygen-Last Documented O2 Percentage 1 Liter = 24% Intake & Output: Intake & Output 11/23/18 11/24/18 11/25/18 11/26/18 11:59 11:59 11:59 11:59 Intake Total 846 2537 480 4540 Output Total 1550 6349 425 5702 Balance -704 693 211 5561 Weight 66.8 kg 66.8 kg - Lab Result Diagrams: 11/26/18 05:33 11/26/18 05:33 Lab Results-Last 24 Hrs: Lab Results-Last 24 Hours 11/26/18 11/26/18 Range/Units 05:33 05:33 WBC 6.5 (4.0-10.5) K/mm3 RBC 3.92 L (4.1-5.4) M/mm3 Hgb 12.2 (12.0-16.0) gm/dl Hct 37.7 (35-47) % MCV 96.2 (78-100) fl MCH 31.1 (26-32) pg MCHC 32.4 (32-36) g/dl RDW 13.7 (11.5-14.0) % Plt Count 120 L (150-450) K/mm3 MPV 12.4 H (6-9.5) fl Sodium 141 (137-145) mmol/L Potassium 4.2 (3.5-5.1) mmol/L Chloride 112 H (98-107) mmol/L Carbon Dioxide 25 (22-30) mmol/L Anion Gap 9.1 (5-15) MEQ/L BUN 5 L (7-17) mg/dL Creatinine 0.62 (0.52-1.04) mg/dL Estimated GFR > 60.0 ML/MIN Glucose 108 H (74-106) mg/dL Calcium 8.9 (8.4-10.2) mg/dL Micro Results-Entire Visit: Microbiology 11/22/18 12:05 Urine Culture - Final Catherized NO GROWTH - Procedures and Test Procedures and Tests throughout Hospitalization: Therapy Orders & Screens 11/22/18 10:48 Respiratory Therapy Assessment DAILY Comment: Diagnosis: colon mass 11/22/18 10:49 Peak Expiratory Flow Rate ONCE Comment: Reason For Exam: Diagnosis: colon mass 11/22/18 19:29 Oxygen Nasal Cannula 3 lpm Comment: Diagnosis: colon mass 11/22/18 22:19 OT Screen per Nursing Assess Comment: Protocol Order Physician Instructions: Greater than 3 points order OT Admission Screening Reason For Exam: Triggered on Admission Diagnosis: Partial Colectomy with reanastamosis Open Wound/Cellutlitis/Pressure Ulcers: No Acute Fx/ORIF/Change in wt bearing status: No Severe MUSCULOSKELETAL pain: No ADL Dysfunction: No Acute CVA w/Hemiparesis/Hemiplegia: No Decreased Functional Mobility/Strength: Yes Sprain/Strain: No Acute Post-op Mobility Dysfunction: Yes Total Points: 4 PT Screen per Nursing Assess Comment: Protocol Order Physician Instructions: Greater than 3 points order PT Admission Screenin Reason For Exam: Triggered on Admission Diagnosis: Partial Colectomy with reanastamosis Open Wound/Cellutlitis/Pressure Ulcers: No Acute Fx/ORIF/Change in wt bearing status: No Severe MUSCULOSKELETAL pain: No ADL Dysfunction: No Acute CVA w/Hemiparesis/Hemiplegia: No Decreased Functional Mobility/Strength: Yes Sprain/Strain: No Acute Post-op Mobility Dysfunction: Yes Total Points: 4 11/23/18 19:00 Respiratory MDI Q12H Comment: Advair 115/21 2 puffs BID Diagnosis: Partial Colectomy with reanastamosis Discharge Exam General Appearance: no apparent distress, alert Neurologic Exam: oriented x 3, cooperative Eye Exam: eyes nml inspection Ears, Nose, Throat Exam: moist mucous membranes Respiratory Exam: normal breath sounds, lungs clear, No crackles/rales, No rhonchi, No wheezing Cardiovascular Exam: regular rate/rhythm, normal heart sounds, No murmur Gastrointestinal/Abdomen Exam: soft, normal bowel sounds, other (wounds c/d/i; there is a), No tenderness, No distention Back Exam: normal inspection, No rash Extremity Exam: normal inspection, No pedal edema, No swelling Skin Exam: normal color, warm, dry, No rash Wound Assessment: Skin/Wound Assessment Wound/Incision Assessment Start: 11/22/18 16: 57 Text: Status: Active Freq: Q4H Protocol: Document 11/26/18 07:55 [facility] (Rec: 11/26/18 07:[address]) Wound/Incision Assessment Abdomen Wound Assessment Shift Assessment Wound Type Incision Wound Stage Non Pressure Wound Dressing Status Dry & Intact Drainage Amount Minimal Drainage Description Serosanguineous General Appearance Well Approximated Surrounding Tissue [address] Packing Type Gauze Packing Strips Primary Dressing Non-Adherent Gauze Pads Comment laproscopic incisons covered with bandaids and some gauze, all intact. Midline incision covered with abd dressing, deirdre intact, incisions well approximated. no redness. Min drainage noted to mid abd dressing. Left Abdomen Drain Type DIANA drain Drainage Description Serosanguineous Odor None/Absent Drainage Amount (ml) 10 Wound Photo Photo Taken No Final Diagnosis/Problem List - Final Discharge Diagnosis/Problem (1) S/P partial colectomy Current Visit: Yes Status: Acute Assessment & Plan: She is doing great. Home today if ok with surgery. Code(s): Z90.49 - ACQUIRED ABSENCE OF OTHER SPECIFIED PARTS OF DIGESTIVE TRACT (2) HTN (hypertension) Current Visit: Yes Status: Chronic Assessment & Plan: stable throughout her stay. Code(s): I10 - ESSENTIAL (PRIMARY) HYPERTENSION (3) Asthma Current Visit: Yes Status: Chronic Code(s): J45.909 - UNSPECIFIED ASTHMA, UNCOMPLICATED (4) Hyperlipidemia Current Visit: Yes Status: Chronic Code(s): E78.5 - HYPERLIPIDEMIA, UNSPECIFIED (5) Hyperglycemia Current Visit: Yes Status: Chronic Code(s): R73.9 - HYPERGLYCEMIA, UNSPECIFIED - Discharge Disposition: Home, Self-Care Condition: Good Prescriptions: New Ciprofloxacin [Cipro 500 MG] 500 mg PO BID #9 tablet Continue Hydrocodone Bit/Acetaminophen [Hydrocodon-Acetaminoph 7.5-325] 1 each PO UD Alprazolam 0.25 mg [xanAX 0.25 MG] 0.25 mg PO UD Lisinopril [Zestril] 40 mg PO DAILY Budesonide/Formoterol Fumarate [Symbicort 160-4.5 Mcg Inhaler] 6 gm IH DAILY Follow up with: KARIN NICOLE [COURTESY STAFF] - 1 Week CECIL PEPPER [Primary Care Provider] - 1 Week
[2018-11-26 09:32] VITALS: PULSE 74; O2SAT 95
[2018-11-26] MEDS: NORCO 5/325 MG PO PRN (11:01)
[2018-11-26] MEDS: Zestril 20 MG PO SCH (11:01)
[2018-11-26] MEDS: Cipro 500 MG PO SCH (11:01)
[2018-11-26] MEDS: ENOXAPARIN SODIUM SQ SCH (11:02)
[2018-11-26] MEDS: ENTEREG 12 MG PO SCH (11:02)
== END 2018-11-26 12:30 | disposition home or self-care (01) | DRG 331 ==
LOC: UNDOADMIN 11-22 09:04 → MED SURG 11-22 09:04 → EDSTATUS 11-22 12:09 → MED SURG 11-22 16:10 → ICU 11-22 16:10 → UNDOADMIN 11-23 09:06 → MED SURG 11-23 09:06 → ICU 11-23 09:06 → MED SURG 11-23 17:53 → ICU 11-23 17:53
PROVIDERS: ADMIT Surgery; ATTEND Surgery
PROC: 0YQ64ZZ Repair Left Inguinal Region, Percutaneous Endoscopic Approach (ICD-10-PCS; principal; 2018-11-22)
PROC: 0DBN4ZZ Excision of Sigmoid Colon, Percutaneous Endoscopic Approach (ICD-10-PCS; 2018-11-22)
DX: K57.32 Diverticulitis of large intestine without perforation or abscess without bleeding (principal); K40.90 Unilateral inguinal hernia, without obstruction or gangrene, not specified as recurrent; I10 Essential (primary) hypertension; E78.5 Hyperlipidemia, unspecified; J45.909 Unspecified asthma, uncomplicated; R73.9 Hyperglycemia, unspecified; Z79.899 Other long term (current) drug therapy
CPT/HCPCS: 36415; 36600; 36620; 62322; 64488; 76942; 80048; 80053; 81001; 82375; 82803; 85027; 86850; 86900; 86901; 87086; 88307; 94150; 94640; 94760; 99100; J1650; J1956; J2250; J2274; J2405; J3010; L0625; A9270-GY

== ENCOUNTER 2019-10-13 17:27 | Emergency (ER) | payer MEDICARE ==
[2019-10-13] MEDS ORDERED: XYLOCAINE 1% HCL 20 ML MDV IJ ONE (17:28)
--- NOTE | 2019-10-13 17:36 | ERPHSYRPT ---
- History of Present Illness Time Seen by Provider: 10/13/19 17:35 Source: patient, family Exam Limitations: no limitations Physician History: This is a 74-year-old white female who sustained a dog bite to her right forearm yesterday. Patient is allergic to penicillin she has taken Keflex in the past without any difficulty or problems or reaction. Patient's last tetanus shot was approximately 1 year ago. Timing/Duration: yesterday Quality: painful Severity: mild Location: extremities (Right forearm) Associated Symptoms: denies symptoms Allergies/Adverse Reactions: Penicillins Allergy (Unknown, Verified 10/13/19 17:39) Sulfa (Sulfonamide Antibiotics) [Sulfa(Sulfonamide Antibiotics)] Adverse Reaction (Verified 10/13/19 17:39) vomiting, dizziness Home Medications: Alprazolam 0.25 mg [xanAX 0.25 MG] 0.25 mg PO UD 07/29/18 [History] Hydrocodone Bit/Acetaminophen [Hydrocodon-Acetaminoph 7.5-325] 1 each PO UD 07/29/18 [History] lisinopriL [Zestril] 40 mg PO DAILY 07/29/18 [History] Budesonide/Formoterol Fumarate [Symbicort 160-4.5 Mcg Inhaler] 6 gm IH DAILY 11/17/18 [History] Hx Tetanus, Diphtheria Vaccination/Date Given: (2007) Hx Influenza Vaccination/Date Given: No (pt refuses) Hx Pneumococcal Vaccination/Date Given: No (pt refuses) Travel Risk - International Travel Have you traveled outside of the country in past 3 weeks: No - Coronavirus Screening Are you exhibiting any of the following symptoms?: No Close contact with a COVID-19 positive Pt in past 14-21 Days: No - Review of Systems Constitutional: No Symptoms Eyes: No Symptoms Ears, Nose, & Throat: No Symptoms Respiratory: No Symptoms Cardiac: No Symptoms Abdominal/Gastrointestinal: No Symptoms Genitourinary Symptoms: No Symptoms Musculoskeletal: No Symptoms Skin: Other (Dog bite3 sites right forearm) Neurological: No Symptoms Psychological: No Symptoms Endocrine: No Symptoms Hematologic/Lymphatic: No Symptoms Immunological/Allergic: No Symptoms All Other Systems: Reviewed and Negative - Past Medical History Pertinent Past Medical History: Yes Neurological History: Migraines ENT History: No Pertinent History Cardiac History: High Cholesterol, Hypertension Respiratory History: Asthma Endocrine Medical History: No Pertinent History Musculoskeletal History: No Pertinent History GI Medical History: Hemorrhoids History: No Pertinent History Psycho-Social History: No Pertinent History Female Reproductive Disorders: No Pertinent History, Fibroids - Past Surgical History Past Surgical History: Yes Neuro Surgical History: No Pertinent History Cardiac: No Pertinent History Respiratory: No Pertinent History Gastrointestinal: Cholecystectomy Genitourinary: No Pertinent History Musculoskeletal: Orthopedic Surgery Female Surgical History: Hysterectomy Other Surgical History: fx rt shoulder 2012 w/ salo placed - Social History Smoking Status: Never smoker Exposure to second hand smoke: No Drug Use: none Patient Lives Alone: No - Nursing Vital Signs Nursing Vital Signs: Initial Vital Signs Temperature 98.1 F 10/13/19 17:29 Pulse Rate 66 10/13/19 17:29 Respiratory Rate 18 10/13/19 17:29 Blood Pressure 159/104 10/13/19 17:29 O2 Sat by Pulse Oximetry 96 10/13/19 17:29 Pain Scale Pain Intensity 1 - Physical Exam General Appearance: no apparent distress, alert, anxiety Eye Exam: PERRL/EOMI, eyes nml inspection Ears, Nose, Throat Exam: normal ENT inspection, moist mucous membranes Neck Exam: normal inspection, non-tender, supple, full range of motion Respiratory Exam: airway intact, No chest tenderness, No respiratory distress Gastrointestinal/Abdomen Exam: No tenderness Pelvic Exam: not done Rectal Exam: not done Back Exam: normal inspection, normal range of motion, No CVA tenderness, No vertebral tenderness (Her) Extremity Exam: normal range of motion, pelvis stable, tenderness (X3 sites. To abrasion sites on the forearm and 1 forearm bite site.), other (There is mild localized cellulitis at each of the 3 sites. 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 See above) Lymphatic Exam: No adenopathy SpO2 Interpretation: normal O2 Delivery: Room Air - Course Nursing assessment & vital signs reviewed: Yes Ordered Tests: Medication Summary Generic Name Dose Route Start Last Admin Trade Name Freq PRN Reason Stop Dose Admin Ceftriaxone Sodium 1,000 mg 10/13/19 17:53 Rocephin 1000 Mg Inj IM 10/13/19 17:54 STAT ONE - Progress Progress: unchanged, pain not gone completely, re-examined Counseled pt/family regarding: diagnosis, need for follow-up - Departure Departure Disposition: Home Clinical Impression: Dog bite, Cellulitis Condition: Stable Critical Care Time: No Referrals: CECIL PEPPER [Primary Care Provider] - Additional Instructions: Do not use lotion ointments or creams to the sites. Keep the sites clean daily with soap, water and hydroperoxide. Follow-up with your primary care physician for reevaluation. Return to the emergency department if symptoms worsen. Prescriptions: Doxycycline Hyclate 100 mg [Vibramycin 100 MG] 100 mg PO BID #14 tab
[2019-10-13] MEDS ORDERED: Rocephin 1000 MG INJ IM ONE (17:53)
[2019-10-13] MEDS ORDERED: Rocephin 1000 MG INJ ONE (18:02)
[2019-10-13 18:14] VITALS: BP 150/75; PULSE 69; O2SAT 97
== END 2019-10-13 18:35 | disposition home or self-care (01) ==
LOC: ED 17:27
DX: L03.113 Cellulitis of right upper limb (principal); S51.851A Open bite of right forearm, initial encounter
CPT/HCPCS: 96372; 99283; J0696

== ENCOUNTER 2019-10-21 13:28 | Emergency (ER) | payer MEDICARE ==
[2019-10-21 13:39] VITALS: BP 189/84; PULSE 70; O2SAT 98
[2019-10-21] MEDS ORDERED: RABIES IMMUNE GLOBULIN 300 UNIT/ML IM ONE (13:46)
[2019-10-21] MEDS ORDERED: Rabavert 2.5 UNITS IM ONE (13:47)
[2019-10-21] MEDS ORDERED: Adacel Vial IM ONE ×2 (13:47→14:08)
--- NOTE | 2019-10-21 14:28 | ERPHSYRPT ---
- History of Present Illness Time Seen by Provider: 10/21/19 13:53 Source: patient, family Exam Limitations: no limitations Patient Subjective Stated Complaint: PT states "I was here last and was bit by a dog. We were initially told he had his shots and now they say he has not. We cannot find out what happened to the dog, I think they shot him that day>" Triage Nursing Assessment: Pt presented alert and oriented X 3, skin pwd. pt ambulates with an upright steady gait, able to speak in clear full senences. Pt wounds pink, healing, no swollen, not hot to touch. Physician History: 74 years old female presented in the ER for rabies vaccination. Patient was bit by dog which was later on killed by pharmacist in charge owner. Patient was initially told that dog was immunized and later on that it was not. She was given antibiotics and her wound is healed very well. No fever or chills reported. Since dog has not been quarantined and is unknown about vaccination status, was recommended to have rabies vaccination. Timing/Duration: day(s) (8) Severity: mild Allergies/Adverse Reactions: doxycycline Allergy (Severe, Verified 10/21/19 13:39) kidney problems Penicillins Allergy (Unknown, Verified 10/13/19 17:39) Sulfa (Sulfonamide Antibiotics) [Sulfa(Sulfonamide Antibiotics)] Adverse Reaction (Verified 10/13/19 17:39) vomiting, dizziness flu vaccine Allergy (Severe, Uncoded 10/21/19 13:39) Swelling Home Medications: Alprazolam 0.25 mg [xanAX 0.25 MG] 0.25 mg PO UD 07/29/18 [History] Hydrocodone Bit/Acetaminophen [Hydrocodon-Acetaminoph 7.5-325] 1 each PO UD 07/29/18 [History] lisinopriL [Zestril] 40 mg PO DAILY 07/29/18 [History] Budesonide/Formoterol Fumarate [Symbicort 160-4.5 Mcg Inhaler] 6 gm IH DAILY 11/17/18 [History] Hx Tetanus, Diphtheria Vaccination/Date Given: Yes Hx Influenza Vaccination/Date Given: No Hx Pneumococcal Vaccination/Date Given: Yes Immunizations Up to Date: Yes Travel Risk - International Travel Have you traveled outside of the country in past 3 weeks: No - Coronavirus Screening Are you exhibiting any of the following symptoms?: No Close contact with a COVID-19 positive Pt in past 14-21 Days: No - Review of Systems Constitutional: No Symptoms Eyes: No Symptoms Ears, Nose, & Throat: No Symptoms Respiratory: No Symptoms Cardiac: No Symptoms Abdominal/Gastrointestinal: No Symptoms Skin: Skin Lesions Neurological: No Symptoms Psychological: No Symptoms Endocrine: No Symptoms Hematologic/Lymphatic: No Symptoms Immunological/Allergic: No Symptoms - Past Medical History Pertinent Past Medical History: Yes Neurological History: Migraines ENT History: No Pertinent History Cardiac History: High Cholesterol, Hypertension Respiratory History: Asthma Endocrine Medical History: No Pertinent History Musculoskeletal History: No Pertinent History GI Medical History: Hemorrhoids History: No Pertinent History Psycho-Social History: No Pertinent History Female Reproductive Disorders: No Pertinent History, Fibroids - Past Surgical History Past Surgical History: Yes Neuro Surgical History: No Pertinent History Cardiac: No Pertinent History Respiratory: No Pertinent History Gastrointestinal: Cholecystectomy Genitourinary: No Pertinent History Musculoskeletal: Orthopedic Surgery Female Surgical History: Hysterectomy Other Surgical History: fx rt shoulder 2012 w/ salo placed - Social History Smoking Status: Never smoker Exposure to second hand smoke: No Drug Use: none Patient Lives Alone: No - Female History Hx Now: No - Nursing Vital Signs Nursing Vital Signs: Initial Vital Signs Temperature 97.8 F 10/21/19 13:34 Pulse Rate 70 10/21/19 13:34 Respiratory Rate 20 10/21/19 13:34 Blood Pressure 189/84 10/21/19 13:34 O2 Sat by Pulse Oximetry 98 10/21/19 13:34 Pain Scale Pain Intensity 0 - Physical Exam General Appearance: no apparent distress, alert Eye Exam: PERRL/EOMI, eyes nml inspection Ears, Nose, Throat Exam: normal ENT inspection Neck Exam: normal inspection, non-tender Respiratory Exam: normal breath sounds, lungs clear Cardiovascular Exam: regular rate/rhythm, normal heart sounds Extremity Exam: other (Bite marx on the right forearm well-healing with minimal erythema around. Nontender.) Neurologic Exam: alert, oriented x 3, cooperative, operations liaison II-XII nml as tested, normal mood/affect SpO2: 98 - Course Nursing assessment & vital signs reviewed: Yes Ordered Tests: Medication Summary Discontinued Medications Generic Name Dose Route Start Last Admin Trade Name Freq PRN Reason Stop Dose Admin Diphtheria/Tetanus/Acell Pertussis 0.5 ml 10/21/19 13:47 07/24/20 14:12 Adacel Vial IM 10/21/19 13:48 0.5 ml .ONCE ONE Administration Diphtheria/Tetanus/Acell Pertussis Confirm 10/21/19 14:08 Adacel Vial Administered 10/21/19 14:09 Dose 0.5 ml IM .STK-MED ONE Rabies Immune Globulin 1,320 units 10/21/19 13:46 10/21/19 14:12 Hyperrab 300 Unit/Ml Vial IM 10/21/19 13:47 1,320 units NOW ONE Administration Rabies Vaccine 2.5 units 10/21/19 13:47 10/21/19 14:13 Rabavert 2.5 Units IM 10/21/19 13:48 2.5 units .ONCE ONE Administration - Progress Progress: unchanged Progress Note: 10/21/19 14:26 She is given rabies vaccine and immunoglobulin. Recommended 3 more vaccination doses. Updated on tetanus. Counseled pt/family regarding: diagnosis, need for follow-up - Departure Departure Disposition: Home Clinical Impression: Encounter for prophylactic rabies immune globin, Rabies, need for prophylactic vaccination against Condition: Stable Critical Care Time: No Referrals: CECIL PEPPER [Primary Care Provider] - Follow Up with PCP/3 days Additional Instructions: Follow-up outpatient for vaccination on day 3, 7 and 14. Return to ER for any worsening.
== END 2019-10-21 15:15 | disposition home or self-care (01) ==
LOC: ED 13:28
DX: S51.831D Puncture wound without foreign body of right forearm, subsequent encounter (principal); W54.0XXD Bitten by dog, subsequent encounter; Z29.14 Encounter for prophylactic rabies immune globulin
CPT/HCPCS: 90376; 90471; 90675; 90715; 96372; 99284

== ENCOUNTER 2019-11-09 18:08 | Emergency (ER) | payer MEDICARE ==
[2019-11-09] MEDS ORDERED: Sodium Chloride 0.9% 1000 ML 1,000 ML IV STA (18:40)
[2019-11-09] MEDS ORDERED: MORPHINE SULFATE 4 MG INJ IV ONE (18:40)
[2019-11-09] MEDS ORDERED: Zofran 4 MG/2 ML VIAL IV ONE (18:40)
[2019-11-09] MEDS ORDERED: Sodium Chloride 0.9% 1000 ML 1,000 ML ONE (18:50)
[2019-11-09] MEDS ORDERED: Zofran 4 MG/2 ML VIAL ONE (18:50)
[2019-11-09] MEDS ORDERED: MORPHINE SULFATE 4 MG INJ ONE (18:50)
--- NOTE | 2019-11-09 18:52 | ERPHSYRPT ---
- History of Present Illness Time Seen by Provider: 11/09/19 18:31 Historian: patient Exam Limitations: no limitations Patient Subjective Stated Complaint: pt here for right flank pain since thursday, getting worse, was dx with UTI yesterday and started on anibotics, Triage Nursing Assessment: pt alert, walked in, face mask in place,resp easy, skin w/d/p. abd soft, moves all ext well Physician History: 74 years old female presented in the ER with chief complaint of right flank pain off and on since Thursday with progressive worsening, sharp moderate intensity associated with nausea but no vomiting. She denies any urinary symptoms. She was seen at primary care yesterday with currently on antibiotic pain seems to be getting worse. Denies fever or chills. No history of kidney stones. Timing/Duration: day(s) (5), gradual onset, worse Activities at Onset: rest Quality: dullness, sharpness Abdominal Pain Onset Location: flank Pain Radiation: groin Severity of Pain-Max: moderate Severity of Pain-Current: moderate Modifying Factors: Improves With: nothing Associated Symptoms: nausea Previous symptoms: no prior history Allergies/Adverse Reactions: doxycycline Allergy (Severe, Verified 11/09/19 18:26) kidney problems Penicillins Allergy (Unknown, Verified 11/09/19 18:26) Sulfa (Sulfonamide Antibiotics) [Sulfa(Sulfonamide Antibiotics)] Adverse Reaction (Verified 11/09/19 18:26) vomiting, dizziness flu vaccine Allergy (Severe, Uncoded 11/09/19 18:26) Swelling Home Medications: Alprazolam 0.25 mg [xanAX 0.25 MG] 0.25 mg PO UD 07/29/18 [History] Hydrocodone Bit/Acetaminophen [Hydrocodon-Acetaminoph 7.5-325] 1 each PO UD 07/29/18 [History] lisinopriL [Zestril] 40 mg PO DAILY 07/29/18 [History] Budesonide/Formoterol Fumarate [Symbicort 160-4.5 Mcg Inhaler] 6 gm IH DAILY 11/17/18 [History] Albuterol Sulfate [Albuterol Sulfate Hfa] 8.5 gm IH Q4HPRN PRN 10/24/19 [History] Cefdinir [Omnicef 300 mg] 1 ea DAILY 11/09/19 [History] Hx Tetanus, Diphtheria Vaccination/Date Given: Yes Hx Influenza Vaccination/Date Given: Yes Hx Pneumococcal Vaccination/Date Given: Yes Immunizations Up to Date: Yes Travel Risk - International Travel Have you traveled outside of the country in past 3 weeks: No - Coronavirus Screening Close contact with a COVID-19 positive Pt in past 14-21 Days: No - Review of Systems Constitutional: No Symptoms Eyes: No Symptoms Ears, Nose, & Throat: No Symptoms Respiratory: No Symptoms Cardiac: No Symptoms Abdominal/Gastrointestinal: Abdominal Pain, Nausea Genitourinary Symptoms: No Symptoms Musculoskeletal: No Symptoms Skin: No Symptoms Neurological: No Symptoms Psychological: No Symptoms Endocrine: No Symptoms Hematologic/Lymphatic: No Symptoms Immunological/Allergic: No Symptoms - Past Medical History Pertinent Past Medical History: Yes Neurological History: Migraines ENT History: No Pertinent History Cardiac History: High Cholesterol, Hypertension Respiratory History: Asthma Endocrine Medical History: No Pertinent History Musculoskeletal History: No Pertinent History GI Medical History: Diverticulitis, Hemorrhoids History: No Pertinent History Psycho-Social History: No Pertinent History Female Reproductive Disorders: No Pertinent History, Fibroids - Past Surgical History Past Surgical History: Yes Neuro Surgical History: No Pertinent History Cardiac: No Pertinent History Respiratory: No Pertinent History Gastrointestinal: Cholecystectomy, Colon Resection Genitourinary: No Pertinent History Musculoskeletal: Orthopedic Surgery Female Surgical History: Hysterectomy Other Surgical History: fx rt shoulder 2012 w/ salo placed - Social History Smoking Status: Never smoker Exposure to second hand smoke: No Drug Use: none Patient Lives Alone: No - Female History Hx Last Menstrual Period: psot Hx Now: No - Nursing Vital Signs Nursing Vital Signs: Initial Vital Signs Temperature 98.3 F 11/09/19 18:19 Pulse Rate 73 11/09/19 18:19 Respiratory Rate 16 11/09/19 18:19 Blood Pressure 189/95 11/09/19 18:19 Pain Scale Pain Intensity 2 - Physical Exam General Appearance: no apparent distress, alert Eye Exam: eyes nml inspection Ears, Nose, Throat Exam: normal ENT inspection, pharynx normal Neck Exam: normal inspection, full range of motion Respiratory Exam: normal breath sounds, lungs clear Cardiovascular Exam: regular rate/rhythm, normal heart sounds Gastrointestinal/Abdomen Exam: soft, tenderness (Right flank/right lower quadrant) Back Exam: normal inspection, normal range of motion, CVA tenderness Extremity Exam: normal inspection, normal range of motion Neurologic Exam: alert, oriented x 3, cooperative Skin Exam: normal color SpO2 Interpretation: normal O2 Delivery: Room Air Ordered Tests: Active Orders 24 hr Category Date Time Status IV Insertion STAT Care 11/09/19 18:40 Completed ABDOMEN AND PELVIS W/0 CONTRAS [CT] Stat Exams 11/09/19 18:40 Taken CBC W DIFF Stat Lab 11/09/19 18:58 Completed CMP Stat Lab 11/09/19 18:58 Completed LIPASE Stat Lab 11/09/19 18:58 Completed UA W/RFX UR CULTURE Stat Lab 11/09/19 19:02 Completed Medication Summary Discontinued Medications Generic Name Dose Route Start Last Admin Trade Name Freq PRN Reason Stop Dose Admin Sodium Chloride 1,000 mls @ 500 mls/hr 11/09/19 18:40 11/09/19 18:52 Sodium Chloride 0.9% 1000 Ml IV 11/09/19 20:39 500 mls/hr .Q2H STA Administration Sodium Chloride Confirm 11/09/19 18:50 Sodium Chloride 0.9% 1000 Ml Administered 11/09/19 18:51 Dose 1,000 mls @ ud .ROUTE .STK-MED ONE Morphine Sulfate 4 mg 11/09/19 18:40 11/09/19 18:56 Morphine Sulfate 4 Mg Inj IV 11/09/19 18:41 4 mg STAT ONE Administration Morphine Sulfate Confirm 11/09/19 18:50 Morphine Sulfate 4 Mg Inj Administered 11/09/19 18:51 Dose 4 mg .ROUTE .STK-MED ONE Ondansetron HCl 4 mg 11/09/19 18:40 11/09/19 18:54 Zofran 4 Mg/2 Ml Vial IV 11/09/19 18:41 4 mg STAT ONE Administration Ondansetron HCl Confirm 11/09/19 18:50 Zofran 4 Mg/2 Ml Vial Administered 11/09/19 18:51 Dose 4 mg .ROUTE .STK-MED ONE Lab/Rad Data: Laboratory Result Diagrams 11/09/19 18:58 11/09/19 18:58 Laboratory Results 11/09/19 11/09/19 11/09/19 Range/Units 19:02 18:58 18:58 WBC 7.4 (4.0-10.5) K/mm3 RBC 4.64 (4.1-5.4) M/mm3 Hgb 14.3 (12.0-16.0) gm/dl Hct 44.3 (35-47) % MCV 95.5 (78-100) fl MCH 30.8 (26-32) pg MCHC 32.3 (32-36) g/dl RDW 13.8 (11.5-14.0) % Plt Count 195 (150-450) K/mm3 MPV 10.5 (7.5-11.0) fl Gran % 57.3 (36.0-66.0) % Eos # (Auto) 0.25 (0-0.5) Absolute Lymphs (auto) 2.39 (1.0-4.6) Absolute Monos (auto) 0.49 (0.0-1.3) Lymphocytes % 32.4 (24.0-44.0) % Monocytes % 6.6 (0.0-12.0) % Eosinophils % 3.4 (0.00-5.0) % Basophils % 0.3 (0.0-0.4) % Absolute Granulocytes 4.23 (1.4-6.9) Basophils # 0.02 (0-0.4) Sodium 139 (137-145) mmol/L Potassium 4.3 (3.5-5.1) mmol/L Chloride 108 H (98-107) mmol/L Carbon Dioxide 24 (22-30) mmol/L Anion Gap 10.9 (5-15) MEQ/L BUN 17 (7-17) mg/dL Creatinine 0.77 (0.52-1.04) mg/dL Estimated GFR > 60.0 ML/MIN Glucose 95 (74-106) mg/dL Calcium 9.6 (8.4-10.2) mg/dL Total Bilirubin 0.60 (0.2-1.3) mg/dL AST 29 (14-36) U/L ALT 17 (0-35) U/L Alkaline Phosphatase 92 (38-126) U/L Serum Total Protein 7.7 (6.3-8.2) g/dL Albumin 4.4 (3.5-5.0) g/dL Lipase 139 (23-300) U/L Urine Color YELLOW (YELLOW) Urine Appearance CLEAR (CLEAR) Urine pH 6.0 (5-6) Ur Specific [employer] 1.008 (1.005-1.025) Urine Protein NEGATIVE (Negative) Urine Ketones NEGATIVE (NEGATIVE) Urine Blood NEGATIVE (0-5) Deon/ul Urine Nitrite NEGATIVE (NEGATIVE) Urine Bilirubin NEGATIVE (NEGATIVE) Urine Urobilinogen NEGATIVE (0-1) mg/dL Ur Leukocyte Esterase SMALL (NEGATIVE) Urine WBC (Auto) 3-5 (0-5) /HPF Urine RBC (Auto) NONE (0-2) /HPF U Epithel Cells (Auto) NONE (FEW) /HPF Urine Bacteria (Auto) RARE (NEGATIVE) /HPF Urine Culture Reflexed NO (NO) Urine Glucose NEGATIVE (NEGATIVE) mg/dL - Progress Progress: improved, pain not gone completely, re-examined Progress Note: 11/09/19 34 years old is evaluated for right flank pain. She is given IV fluid and pain medication, on reevaluation her pain is better. She has normal white count, grossly unremarkable chemistries. No UTI. I have obtained CT abdomen pelvis without contrast which showed some element of constipation and L4-L5 spondylolisthesis but no acute intra-abdominal findings. She does have history of chronic back pain. I do not know the exact cause of her flank pain but could be radiating from her back. At this point patient is nontoxic and no signs of distress. Work-up is grossly negative. Do not think she needs further evaluation in the ER, she is offered pain medication but she has Pillager at home which she is advised to take. She is advised also advised to take MiraLAX to relieve her constipation. Discussed signs symptoms of worsening needing return to ER which she seems understanding. Stable for discharge. Counseled pt/family regarding: lab results, diagnosis, need for follow-up, rad results - Departure Departure Disposition: Home Clinical Impression: Right flank pain, Constipation Condition: Stable Critical Care Time: No Referrals: DOCTOR,NO FAMILY [Primary Care Provider] - Follow Up with PCP/3 days () Instructions: Flank Pain Additional Instructions: Take pain medications which you have at home as needed. Take MiraLAX daily. Follow-up with your primary care physician for reevaluation. Return to ER for worsening pain, vomiting, fever chills etc.
[2019-11-09 19:15] LABS: ALBUMIN 4.4 g/dL (3.5-5.0); ALKALINE PHOSPHATASE 92 U/L (38-126); ANION GAP 10.9 MEQ/L (5-15); BLOOD UREA NITROGEN 17 mg/dL (7-17); CHLORIDE 108 mmol/L (98-107); Calcium 9.6 mg/dL (8.4-10.2); Carbon Dioxide 24 mmol/L (22-30); Creatinine 1 0.77 mg/dL (0.52-1.04); Glucose 95 mg/dL (74-106); LIPASE 139 U/L (23-300); Potassium 4.3 mmol/L (3.5-5.1); SGOT/AST 29 U/L (14-36); SGPT/ALT 17 U/L (0-35); SODIUM 139 mmol/L (137-145); Total Protein 7.7 g/dL (6.3-8.2)
[2019-11-09 19:19] LABS: Absolute Neutrophil Ct (ANC) 4.23 (1.4-6.9); BASOPHIL % 0.3 % (0.0-0.4); Basophil (Absolute #) 0.02 (0-0.4); Eosinophil % 3.4 % (0.00-5.0); Eosinophil (Absolute #) 0.25 (0-0.5); Hematocrit 44.3 % (35-47); Hemoglobin 14.3 gm/dl (12.0-16.0); Lymphocyte (Absolute #) 2.39 (1.0-4.6); Lymphocytes % 32.4 % (24.0-44.0); Mean Cell Volume 95.5 fl (78-100); Mean Corpuscular Hemoglobin 30.8 pg (26-32); Mean Corpuscular Hgb Concent. 32.3 g/dl (32-36); Mean Platelet Volume 10.5 fl (7.5-11.0); Monocyte (Absolute #) 0.49 (0.0-1.3); Monocytes % 6.6 % (0.0-12.0); Neutrophil % 57.3 % (36.0-66.0); Platelet Count 195 K/mm3 (150-450); Red Blood Count 4.64 M/mm3 (4.1-5.4); Red Cell Distribution Width 13.8 % (11.5-14.0); White Blood Count 7.4 K/mm3 (4.0-10.5)
[2019-11-09 19:24] LABS: Appearance CLEAR (CLEAR); Bacteria RARE /HPF (NEGATIVE); Bilirubin NEGATIVE (NEGATIVE); Blood NEGATIVE Ery/ul (0-5); Glucose NEGATIVE (NEGATIVE); Ketones NEGATIVE (NEGATIVE); Leukocyte Esterase SMALL (NEGATIVE); Nitrite NEGATIVE (NEGATIVE); Protein,Urine Dip NEGATIVE (Negative); Specific Gravity 1.008 (1.005-1.025); Urobilinogen NEGATIVE mg/dL (0-1)
[2019-11-09 20:25] VITALS: BP 157/82; PULSE 96; O2SAT 97
--- NOTE | 2019-11-10 08:46 | XRAY ---
Indication: Right abdomen/pelvic pain. Multiple contiguous axial images obtained through the abdomen and pelvis without contrast using renal stone protocol. Comparison: September 12, 2019. Lung bases again demonstrates scattered fibrosis/scarring with now minimal bilateral dependent atelectasis. Heart is not enlarged. Again no renal calculus or evidence for obstructive uropathy in either system. Stable small bilateral parapelvic renal cysts. Noncontrasted stomach and bowel loops remain nonobstructed again with minimal descending and sigmoid diverticulosis. Stable intact and sigmoid anastomosis, appendectomy, cholecystectomy, and hysterectomy. No free fluid/air. Remaining liver, pancreas, spleen, adrenal glands, kidneys, ureters, and bladder appear unremarkable for noncontrast exam. Stable minimal aortoiliac calcifications without AAA. Osseous structures remain intact again with mild osteopenia and mild degenerative changes throughout the thoracolumbar spine. Stable small bilateral fatty inguinal hernias. Impression: 1. Continued negative for renal calculus or evidence for obstructive uropathy. 2. Stable colonic diverticulosis, bilateral renal parapelvic cysts, and small bilateral fatty inguinal hernias. Comment: Preliminary interpretation was made by [facility]. No critical discrepancy.
== END 2019-11-09 20:26 | disposition home or self-care (01) ==
LOC: ED 18:08
DX: R10.9 Unspecified abdominal pain (principal); K59.00 Constipation, unspecified
CPT/HCPCS: 36000; 36415; 74176; 80053; 81001; 83690; 85025; 96360; 96374; 96375; 99284; J2270; J2405

== ENCOUNTER 2020-02-06 08:59 | Emergency (ER) | payer MEDICARE, SELFPAY ==
[2020-02-06] MEDS ORDERED: ANTIVERT 25 MG PO ONE (09:21)
[2020-02-06] MEDS ORDERED: ANTIVERT 25 MG ONE (09:31)
--- NOTE | 2020-02-06 09:34 | ERPHSYRPT ---
- History of Present Illness Source: patient Exam Limitations: no limitations Patient Subjective Stated Complaint: co dizziness since October off and on, she just finished a z pack and predinsone and states she is not better, co right ear clogging up and states then she states her head starts spinning and she is off balance, so nausea Triage Nursing Assessment: pt alert, resp easy, face mask in place, she states she feels unsteady on feet, she is able to get undressed, skin w/d/p Physician History: Patient is a 74-year-old female with history of hypertension and hyperglycemia who presents with dizziness chronically. Patient states she is here because she is unable to get into see her PCP. Patient states symptoms started about October of this year and has been persistent. Patient was able to see nurse practitioner about 2 and half weeks ago and was prescribed a Z-Jono and steroids for right ear pressure to treat possible ear infection. Patient states this not helped at all. States that when she opens her eyes the room is spinning. Denies headache, upper respiratory or GI symptoms. She states normally if the room is not spinning she is able to tolerate. Changes to her medications. No other neurological symptoms. Time of Onset/Last Time Seen Normal: October 2019 Timing/Duration: other (4 months ago, Pt sts about October) Severity: severe Character of Deficits: none Deficits: cannot walk Baseline/Normal Cognition: alert oriented x 3 Current Cognition: alert oriented x 3 Baseline Gait: walks w/o assistance Associated Symptoms: other (Right ear with decreased hearing) Allergies/Adverse Reactions: doxycycline Allergy (Severe, Verified 02/06/20 09:14) kidney problems Penicillins Allergy (Unknown, Verified 02/06/20 09:14) Sulfa (Sulfonamide Antibiotics) [Sulfa(Sulfonamide Antibiotics)] Adverse Reaction (Verified 02/06/20 09:14) vomiting, dizziness flu vaccine Allergy (Severe, Uncoded 02/06/20 09:14) Swelling Home Medications: Alprazolam 0.25 mg [xanAX 0.25 MG] 0.25 mg PO UD 07/29/18 [History] Hydrocodone Bit/Acetaminophen [Hydrocodon-Acetaminoph 7.5-325] 1 each PO UD 07/29/18 [History] lisinopriL [Zestril] 40 mg PO DAILY 07/29/18 [History] Budesonide/Formoterol Fumarate [Symbicort 160-4.5 Mcg Inhaler] 6 gm IH DAILY [History] Albuterol Sulfate [Albuterol Sulfate Hfa] 8.5 gm IH Q4HPRN PRN 10/24/19 [History] Cefdinir [Omnicef 300 mg] 1 ea DAILY 11/09/19 [History] Hx Tetanus, Diphtheria Vaccination/Date Given: Yes Hx Influenza Vaccination/Date Given: No Hx Pneumococcal Vaccination/Date Given: Yes Travel Risk - International Travel Have you traveled outside of the country in past 3 weeks: No - Coronavirus Screening Are you exhibiting any of the following symptoms?: No Close contact with a COVID-19 positive Pt in past 14-21 Days: No - Review of Systems Constitutional: Malaise, No Fever, No Chills Eyes: No Symptoms Ears, Nose, & Throat: No Symptoms, Hearing Changes Respiratory: No Cough, No Dyspnea Cardiac: No Chest Pain, No Edema, No Syncope Abdominal/Gastrointestinal: No Abdominal Pain, No Nausea, No Vomiting, No Diarrhea Genitourinary Symptoms: No Dysuria Musculoskeletal: No Back Pain, No Neck Pain Skin: No Rash Neurological: Dizziness, No Focal Weakness, No Headache, No Paralysis, No Parasthesia, No Sensory Changes Psychological: No Symptoms Endocrine: No Symptoms All Other Systems: Reviewed and Negative - Past Medical History Pertinent Past Medical History: Yes Neurological History: Migraines ENT History: No Pertinent History Cardiac History: High Cholesterol, Hypertension Respiratory History: Asthma Endocrine Medical History: No Pertinent History Musculoskeletal History: No Pertinent History GI Medical History: Diverticulitis, Hemorrhoids History: No Pertinent History Psycho-Social History: No Pertinent History Female Reproductive Disorders: No Pertinent History, Fibroids - Past Surgical History Past Surgical History: Yes Neuro Surgical History: No Pertinent History Cardiac: No Pertinent History Respiratory: No Pertinent History Gastrointestinal: Cholecystectomy, Colon Resection Genitourinary: No Pertinent History Musculoskeletal: Orthopedic Surgery Female Surgical History: Hysterectomy Other Surgical History: fx rt shoulder 2012 w/ salo placed - Social History Smoking Status: Never smoker Exposure to second hand smoke: No Drug Use: none Patient Lives Alone: No - Female History Hx Last Menstrual Period: post Hx Now: No - Nursing Vital Signs Nursing Vital Signs: Initial Vital Signs Temperature 98.8 F 02/06/20 09:14 Pulse Rate 72 02/06/20 09:14 Respiratory Rate 16 02/06/20 09:14 Blood Pressure 181/87 02/06/20 09:14 O2 Sat by Pulse Oximetry 98 02/06/20 09:14 Pain Scale Pain Intensity 0 - Daija Coma Scale Best Eye Response (Daija): (4) open spontaneously Best Verbal Response (Daija): (5) oriented Best Motor Response ([place]): (6) obeys commands Daija Total: 15 - Physical Exam General Appearance: no apparent distress, alert Eye Exam: bilateral eye: PERRL, EOMI Ears, Nose, Throat Exam: normal ENT inspection, moist mucous membranes Neck Exam: normal inspection, non-tender, supple Respiratory: normal breath sounds, lungs clear, airway intact, No respiratory distress Cardiovascular: regular rate/rhythm, No edema Gastrointestinal: soft, No tenderness, No distention Back Exam: normal inspection Extremity Exam: normal inspection, No pedal edema 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, 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: 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 midline Coordination/Gait: normal finger to nose, normal gait Skin Exam: normal color, warm, dry, No rash SpO2: 98 - Course Nursing assessment & vital signs reviewed: Yes EKG Interpreted by Me: Sinus Rhythm, NORMAL AXIS, NORMAL INTERVALS, NORMAL QRS - Radiology Exams Chest X-ray Interpretation: Interpreted by me, Negative - CT Exams Head CT Interpretation: Discussed w/radiologist, Other (Old lacunar infarct) Ordered Tests: Active Orders 24 hr Category Date Time Status Customer Contact Specialist STAT Care 02/06/20 09:22 Active EKG-ER Only STAT Care 02/06/20 09:02 Active IV Insertion STAT Care 02/06/20 09:21 Active Orthostatic Vital Signs STAT Care 02/06/20 09:21 Active CHEST 2 VIEWS (PA AND LAT) Stat Exams 02/06/20 09:59 Completed HEAD WITHOUT CONTRAST [CT] Stat Exams 02/06/20 09:51 Completed CBC W DIFF Stat Lab 02/06/20 09:49 Completed CMP Stat Lab 02/06/20 09:49 Completed CULTURE,URINE Stat Lab 02/06/20 09:17 Received MAGNESIUM Stat Lab 02/06/20 09:49 Completed TROPONIN Q3H Lab 02/06/20 09:49 Completed TROPONIN Q3H Lab 02/06/20 12:30 Ordered TROPONIN Q3H Lab 02/06/20 15:30 Ordered TROPONIN Q3H Lab 02/06/20 18:30 Ordered TROPONIN Q3H Lab 02/06/20 21:30 Ordered UA W/RFX UR CULTURE Stat Lab 02/06/20 09:17 Completed Medication Summary Discontinued Medications Generic Name Dose Route Start Last Admin Trade Name [place] PRN Reason Stop Dose Admin Meclizine HCl 25 mg 02/06/20 09:21 02/06/20 09:32 Antivert 25 Mg PO 02/06/20 09:22 25 mg STAT ONE Administration Meclizine HCl Confirm 02/06/20 09:31 Antivert 25 Mg Administered 02/06/20 09:32 Dose 25 mg .ROUTE .STK-MED ONE Lab/Rad Data: Laboratory Result Diagrams 02/06/20 09:49 02/06/20 09:49 Laboratory Results 02/06/20 02/06/20 02/06/20 Range/Units 09:49 09:49 09:49 WBC 6.9 (4.0-10.5) K/mm3 RBC 4.58 (4.1-5.4) M/mm3 Hgb 14.3 (12.0-16.0) gm/dl Hct 45.8 (35-47) % MCV 100.0 (78-100) fl MCH 31.2 (26-32) pg MCHC 31.2 L (32-36) g/dl RDW 14.2 H (11.5-14.0) % Plt Count 163 (150-450) K/mm3 MPV 10.6 (7.5-11.0) fl Gran % 64.8 (36.0-66.0) % Eos # (Auto) 0.11 (0-0.5) Absolute Lymphs (auto) 1.83 (1.0-4.6) Absolute Monos (auto) 0.46 (0.0-1.3) Lymphocytes % 26.6 (24.0-44.0) % Monocytes % 6.7 (0.0-12.0) % Eosinophils % 1.6 (0.00-5.0) % Basophils % 0.3 (0.0-0.4) % Absolute Granulocytes 4.47 (1.4-6.9) Basophils # 0.02 (0-0.4) Sodium 139 (137-145) mmol/L Potassium 3.9 (3.5-5.1) mmol/L Chloride 113 H (98-107) mmol/L Carbon Dioxide 20 L (22-30) mmol/L Anion Gap 9.3 (5-15) MEQ/L BUN 13 (7-17) mg/dL Creatinine 0.66 (0.52-1.04) mg/dL Estimated GFR > 60.0 ML/MIN Glucose 93 (74-106) mg/dL Calcium 8.8 (8.4-10.2) mg/dL Magnesium 2.2 (1.6-2.3) mg/dL Total Bilirubin 0.50 (0.2-1.3) mg/dL AST 29 (14-36) U/L ALT 21 (0-35) U/L Alkaline Phosphatase 72 (38-126) U/L Troponin I < 0.012 (0.000-0.034) ng/mL Serum Total Protein 6.6 (6.3-8.2) g/dL Albumin 3.7 (3.5-5.0) g/dL Urine Color (YELLOW) Urine Appearance (CLEAR) Urine pH (5-6) Ur Specific [place] (1.005-1.025) Urine Protein (Negative) Urine Ketones (NEGATIVE) Urine Blood (0-5) Deon/ul Urine Nitrite (NEGATIVE) Urine Bilirubin (NEGATIVE) Urine Urobilinogen (0-1) mg/dL Ur Leukocyte Esterase (NEGATIVE) Urine WBC (Auto) (0-5) /HPF Urine RBC (Auto) (0-2) /HPF U Epithel Cells (Auto) (FEW) /HPF Urine Bacteria (Auto) (NEGATIVE) /HPF Urine Mucus (Auto) (NEGATIVE) /HPF Urine Culture Reflexed (NO) Urine Glucose (NEGATIVE) mg/dL 02/06/20 Range/Units 09:17 WBC (4.0-10.5) K/mm3 RBC (4.1-5.4) M/mm3 Hgb (12.0-16.0) gm/dl Hct (35-47) % MCV (78-100) fl MCH (26-32) pg MCHC (32-36) g/dl RDW (11.5-14.0) % Plt Count (150-450) K/mm3 MPV (7.5-11.0) fl Gran % (36.0-66.0) % Eos # (Auto) (0-0.5) Absolute Lymphs (auto) (1.0-4.6) Absolute Monos (auto) (0.0-1.3) Lymphocytes % (24.0-44.0) % Monocytes % (0.0-12.0) % Eosinophils % (0.00-5.0) % Basophils % (0.0-0.4) % Absolute Granulocytes (1.4-6.9) Basophils # (0-0.4) Sodium (137-145) mmol/L Potassium (3.5-5.1) mmol/L Chloride (98-107) mmol/L Carbon Dioxide (22-30) mmol/L Anion Gap (5-15) MEQ/L BUN (7-17) mg/dL Creatinine (0.52-1.04) mg/dL Estimated GFR ML/MIN Glucose (74-106) mg/dL Calcium (8.4-10.2) mg/dL Magnesium (1.6-2.3) mg/dL Total Bilirubin (0.2-1.3) mg/dL AST (14-36) U/L ALT (0-35) U/L Alkaline Phosphatase (38-126) U/L Troponin I (0.000-0.034) ng/mL Serum Total Protein (6.3-8.2) g/dL Albumin (3.5-5.0) g/dL Urine Color YELLOW (YELLOW) Urine Appearance CLEAR (CLEAR) Urine pH 5.0 (5-6) Ur Specific [place] 1.018 (1.005-1.025) Urine Protein NEGATIVE (Negative) Urine Ketones NEGATIVE (NEGATIVE) Urine Blood SMALL (0-5) Deon/ul Urine Nitrite NEGATIVE (NEGATIVE) Urine Bilirubin NEGATIVE (NEGATIVE) Urine Urobilinogen NEGATIVE (0-1) mg/dL Ur Leukocyte Esterase MODERATE (NEGATIVE) Urine WBC (Auto) 11-15 (0-5) /HPF Urine RBC (Auto) 3-5 (0-2) /HPF U Epithel Cells (Auto) NONE (FEW) /HPF Urine Bacteria (Auto) NONE (NEGATIVE) /HPF Urine Mucus (Auto) SLIGHT (NEGATIVE) /HPF Urine Culture Reflexed YES (NO) Urine Glucose NEGATIVE (NEGATIVE) mg/dL - Progress Progress: improved Progress Note: 11/09/20 10:34 Differential diagnosis fluids CVA versus benign positional vertigo versus hypertension versus hypoglycemia versus UTI versus electrolyte abnormalities. Of course given vertigo it could be ENT related. Head CT shows no CVA, just old lacunar infarct. Cardiac work-up was negative with normal troponin and EKG. CMP reveals normal electrolytes and renal and liver functions. Given patient's ear issues, could be more vestibular. The exam does reveal a bit of a bulging TM on her right. No erythema. Will give Decadron IV here. Patient's BP slightly elevated so we will give some enalapril IV. She normally takes lisinopril 40 mg p.o. daily. We will prescribe Antivert, prednisone and Zofran ODT. Advised taking her blood pressure medications and monitoring her blood pressure. Patient is better after the Antivert. Patient did mention that the last time she take Antivert it did not help but this time it is. Patient is not orthostatic today. Counseled pt/family regarding: lab results, diagnosis, need for follow-up, rad results - Departure Departure Disposition: Home Clinical Impression: Vertigo, labyrinthine Condition: Stable Critical Care Time: No Referrals: DOCTOR,NO FAMILY [Primary Care Provider] - Instructions: Vertigo (a Type of Dizziness) (DC) Additional Instructions: Monitor symptoms closely. Precautions include getting up slowly, holding onto something when standing as well as while ambulating. Drink plenty of water. Take medication as prescribed. Monitor blood pressure closely. Follow-up with your PCP in 2 to 3 days for recheck. Return to ER if worse. Prescriptions: Ondansetron ODT 4 MG [Zofran Odt 4 mg] 4 mg PO Q6H PRN PRN #10 tab.rapdis PRN Reason: Vomiting Meclizine HCl 25 mg [Antivert 25 mg] 25 mg PO Q8H PRN #20 tablet PRN Reason: Dizziness Prednisone 20 mg [Deltasone 20 mg] 40 mg PO DAILY 5 Days #10 tablet
[2020-02-06 09:49] LABS: Absolute Neutrophil Ct (ANC) 4.47 (1.4-6.9); BASOPHIL % 0.3 % (0.0-0.4); Basophil (Absolute #) 0.02 (0-0.4); Eosinophil % 1.6 % (0.00-5.0); Eosinophil (Absolute #) 0.11 (0-0.5); Hematocrit 45.8 % (35-47); Hemoglobin 14.3 gm/dl (12.0-16.0); Lymphocyte (Absolute #) 1.83 (1.0-4.6); Lymphocytes % 26.6 % (24.0-44.0); Mean Corpuscular Hemoglobin 31.2 pg (26-32); Mean Corpuscular Hgb Concent. 31.2 g/dl (32-36); Mean Platelet Volume 10.6 fl (7.5-11.0); Monocyte (Absolute #) 0.46 (0.0-1.3); Monocytes % 6.7 % (0.0-12.0); Neutrophil % 64.8 % (36.0-66.0); Platelet Count 163 K/mm3 (150-450); Red Blood Count 4.58 M/mm3 (4.1-5.4); Red Cell Distribution Width 14.2 % (11.5-14.0); White Blood Count 6.9 K/mm3 (4.0-10.5)
[2020-02-06 09:57] LABS: Appearance CLEAR (CLEAR); Bilirubin NEGATIVE (NEGATIVE); Blood SMALL Ery/ul (0-5); Glucose NEGATIVE (NEGATIVE); Ketones NEGATIVE (NEGATIVE); Leukocyte Esterase MODERATE (NEGATIVE); Mucus SLIGHT /HPF (NEGATIVE); Nitrite NEGATIVE (NEGATIVE); Protein,Urine Dip NEGATIVE (Negative); Specific Gravity 1.018 (1.005-1.025); Urobilinogen NEGATIVE mg/dL (0-1)
[2020-02-06 10:00] LABS: ALBUMIN 3.7 g/dL (3.5-5.0); ALKALINE PHOSPHATASE 72 U/L (38-126); ANION GAP 9.3 MEQ/L (5-15); BLOOD UREA NITROGEN 13 mg/dL (7-17); CHLORIDE 113 mmol/L (98-107); Calcium 8.8 mg/dL (8.4-10.2); Carbon Dioxide 20 mmol/L (22-30); Creatinine 1 0.66 mg/dL (0.52-1.04); EST GLOMERULAR FILTRATION RATE > 60.0 ML/MIN; Glucose 93 mg/dL (74-106); MAGNESIUM 2.2 mg/dL (1.6-2.3); Potassium 3.9 mmol/L (3.5-5.1); SGOT/AST 29 U/L (14-36); SGPT/ALT 21 U/L (0-35); SODIUM 139 mmol/L (137-145); Total Protein 6.6 g/dL (6.3-8.2)
--- NOTE | 2020-02-06 10:04 | XRAY ---
Indication: Severe dizziness. Multiple contiguous axial images obtained through the head without contrast. Comparison: None Ventriculosulcal pattern appears symmetric with age-appropriate atrophy. Bilateral basal ganglia remote lacunar infarcts. No acute intracranial hemorrhage, abnormal extra-axial fluid collection, or mass effect. Fourth ventricle is midline without hydrocephalus. Vincent-white matter differentiation preserved. Bony calvarium intact. Minimal mucosal thickening of both maxillary sinuses. Remaining visualized paranasal sinuses and mastoid air cells are clear. Impression: 1. Bilateral basal ganglia remote lacunar infarcts and minimal paranasal sinus disease. 2. Remaining CT head without contrast exam is negative.
--- NOTE | 2020-02-06 10:08 | XRAY ---
Indication: Dizziness. Comparison: June 01, 2011. PA/lateral chest hyperinflated and clear. Heart and mediastinal structures within normal limits. Bony thorax intact with osteopenia and new finding old right humerus fracture with orthopedic hardware. Impression: Nonacute hyperinflated chest with chronic features.
[2020-02-06] MEDS ORDERED: VASOTEC I.V. 2.5 MG IV ONE ×2 (10:32→10:34)
[2020-02-06] MEDS ORDERED: DECADRON 10MG INJ. IV ONE (10:32)
[2020-02-06] MEDS ORDERED: DECADRON 10MG INJ. ONE (10:34)
[2020-02-06 11:13] VITALS: BP 161/86; PULSE 59; O2SAT 97
== END 2020-02-06 11:24 | disposition home or self-care (01) ==
LOC: ED 08:59
DX: R42 Dizziness and giddiness (principal); H83.01 Labyrinthitis, right ear; I10 Essential (primary) hypertension; Z79.899 Other long term (current) drug therapy; E78.00 Pure hypercholesterolemia, unspecified
CPT/HCPCS: 36000; 36415; 70450; 71046; 80053; 81001; 83735; 84484; 85025; 87086; 93005; 93041; 96374; 96375; 99284; J1100; A9270-GY

== ENCOUNTER 2020-07-05 07:30 | Observation (INO) | payer MEDICARE, SELFPAY ==
[2020-07-05] MEDS ORDERED: BABY ASPIRIN 81 MG CHEW PO ONE (07:54)
[2020-07-05] MEDS ORDERED: NITRO-BID 2% UD PACKETS TOP ONE (07:55)
--- NOTE | 2020-07-05 07:55 | ERPHSYRPT ---
- History of Present Illness Time Seen by Provider: 07/05/20 07:45 Historian: patient Exam Limitations: no limitations Patient Subjective Stated Complaint: pt here for for palpations last night with some sob Triage Nursing Assessment: pt alert, resp easy, face mask in place, skin w/d/p. no edema noted Physician History: Patient is a 74-year-old female presents to our emergency department with complaints of heart palpitations and chest pain. Symptoms started last night. Patient became concerned as she has a history of atrial fibrillation. No associated nausea vomiting or diaphoresis. No trauma. No fever. Symptoms have been constant. Symptoms are moderate in intensity. No specific worsening improving factors. Patient states she had a cardiac stress test last year that was essentially normal. She is a non-smoker. She has no other complaints at this time. Timing/Duration: yesterday Activities at Onset: none Quality: aching Location: substernal, epigastric Chest Pain Radiation: no radiation Severity of Pain-Max: moderate Severity of Pain-Current: mild Modifying Factors: Improves With: nothing Associated Symptoms: denies symptoms Prior Chest Pain/Cardiac Workup: stress test Nitro Today/Relief: no nitro taken today Aspirin Treatment Today: no aspirin today Allergies/Adverse Reactions: doxycycline Allergy (Severe, Verified 07/05/20 07:43) kidney problems Penicillins Allergy (Unknown, Verified 07/05/20 07:43) Sulfa (Sulfonamide Antibiotics) [Sulfa(Sulfonamide Antibiotics)] Adverse Reaction (Verified 07/05/20 07:43) vomiting, dizziness flu vaccine Allergy (Severe, Uncoded 07/05/20 07:43) Swelling Home Medications: ALPRAZolam 0.25 MG [xanAX 0.25 MG] 0.25 mg PO UD 07/29/18 [History] Hydrocodone Bit/Acetaminophen [Hydrocodon-Acetaminoph 7.5-325] 1 each PO UD 07/29/18 [History] lisinopriL [Zestril] 40 mg PO DAILY 07/29/18 [History] Budesonide/Formoterol Fumarate [Symbicort 160-4.5 Mcg Inhaler] 6 gm IH DAILY 11/17/18 [History] Albuterol Sulfate [Albuterol Sulfate Hfa] 8.5 gm IH Q4HPRN PRN 10/24/19 [History] Hx Tetanus, Diphtheria Vaccination/Date Given: Yes Hx Influenza Vaccination/Date Given: Yes Hx Pneumococcal Vaccination/Date Given: Yes Immunizations Up to Date: Yes Travel Risk - International Travel Have you traveled outside of the country in past 3 weeks: No - Coronavirus Screening Are you exhibiting any of the following symptoms?: No Close contact with a COVID-19 positive Pt in past 14-21 Days: No - Vaccine Status Have you recieved a Covid-19 vaccination: Yes [employer]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 - Vaccination Dates Date of 2cond Vaccination (if applicable): na - Review of Systems Constitutional: No Symptoms, No Fever, No Chills Eyes: No Symptoms Ears, Nose, & Throat: No Symptoms Respiratory: No Symptoms, No Cough, No Dyspnea Cardiac: No Symptoms, No Chest Pain, No Edema, No Syncope Abdominal/Gastrointestinal: No Symptoms, No Abdominal Pain, No Nausea, No Vomiting, No Diarrhea Genitourinary Symptoms: No Symptoms, No Dysuria Musculoskeletal: No Symptoms, No Back Pain, No Neck Pain Skin: No Symptoms, No Rash Neurological: No Symptoms, No Dizziness, No Focal Weakness, No Sensory Changes Psychological: No Symptoms Endocrine: No Symptoms Hematologic/Lymphatic: No Symptoms Immunological/Allergic: No Symptoms All Other Systems: Reviewed and Negative - Past Medical History Pertinent Past Medical History: Yes Neurological History: Migraines ENT History: No Pertinent History Cardiac History: High Cholesterol, Hypertension Respiratory History: Asthma Endocrine Medical History: No Pertinent History Musculoskeletal History: No Pertinent History GI Medical History: Diverticulitis, Hemorrhoids History: No Pertinent History Psycho-Social History: No Pertinent History Female Reproductive Disorders: No Pertinent History, Fibroids - Past Surgical History Past Surgical History: Yes Neuro Surgical History: No Pertinent History Cardiac: No Pertinent History Respiratory: No Pertinent History Gastrointestinal: Cholecystectomy, Colon Resection Genitourinary: No Pertinent History Musculoskeletal: Orthopedic Surgery Female Surgical History: Hysterectomy Other Surgical History: fx rt shoulder 2012 w/ salo placed - Social History Smoking Status: Never smoker Exposure to second hand smoke: No Drug Use: none Patient Lives Alone: No - Female History Hx Last Menstrual Period: post - Nursing Vital Signs Nursing Vital Signs: Initial Vital Signs Temperature 97.0 F 07/05/20 07:38 Pulse Rate 64 07/05/20 07:38 Respiratory Rate 18 07/05/20 07:38 Blood Pressure 158/112 07/05/20 07:38 O2 Sat by Pulse Oximetry 98 07/05/20 07:38 Pain Scale Pain Intensity 0 - Physical Exam General Appearance: no apparent distress, alert Eye Exam: PERRL/EOMI, eyes nml inspection Ears, Nose, Throat Exam: normal ENT inspection, moist mucous membranes Neck Exam: normal inspection, non-tender, supple, full range of motion Respiratory Exam: normal breath sounds, lungs clear, No respiratory distress Cardiovascular Exam: regular rate/rhythm, normal heart sounds Gastrointestinal/Abdomen Exam: soft, No tenderness, No mass Back Exam: normal inspection, No CVA tenderness, No vertebral tenderness Extremity Exam: normal inspection, normal range of motion Neurologic Exam: alert, oriented x 3, cooperative, normal mood/affect, sensation nml, No motor deficits Skin Exam: normal color, warm, dry SpO2 Interpretation: normal SpO2: 98 O2 Delivery: Room Air - Course Nursing assessment & vital signs reviewed: Yes EKG Interpreted by Me: RATE (60), Sinus Rhythm, NORMAL AXIS, NORMAL INTERVALS - Radiology Exams Chest X-ray Interpretation: Teleradiologist Report (No acute pathology observed. Features observed. Hyperinflated lungs. 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 07/05/20 07:49 Active EKG-ER Only STAT Care 07/05/20 07:48 Active IV Insertion STAT Care 07/05/20 07:48 Active Pulse Oximetry (ED) STAT Care 07/05/20 07:48 Active CHEST 1 VIEW (PORTABLE) Stat Exams 07/05/20 07:49 Completed CBC W DIFF Stat Lab 07/05/20 08:08 Completed CMP Stat Lab 07/05/20 08:00 Completed CULTURE,URINE Stat Lab 07/05/20 07:48 Received ETHYL ALCOHOL Stat Lab 07/05/20 08:00 Completed MAGNESIUM Stat Lab 07/05/20 08:00 Completed TROPONIN Q3H Lab 07/05/20 08:00 Completed TROPONIN Q3H Lab 07/05/20 11:00 Ordered TROPONIN Q3H Lab 07/05/20 14:00 Ordered TROPONIN Q3H Lab 07/05/20 17:00 Ordered TROPONIN Q3H Lab 07/05/20 20:00 Ordered TSH [TSH, 3RD Generation] Stat Lab 07/05/20 08:08 Completed UA W/RFX UR CULTURE Stat Lab 07/05/20 07:48 Completed Urine Triage Profile Stat Lab 07/05/20 08:17 Completed Transfer Order Routine Transfer 07/05/20 Ordered Medication Summary Discontinued Medications Generic Name Dose Route Start Last Admin Trade Name [place] PRN Reason Stop Dose Admin Aspirin 324 mg 07/05/20 07:54 07/05/20 08:00 Baby Aspirin 81 Mg Chew PO 07/05/20 07:55 324 mg STAT ONE Administration Aspirin Confirm 07/05/20 07:59 Baby Aspirin 81 Mg Chew Administered 07/05/20 08:00 Dose 324 mg .ROUTE .STK-MED ONE Nitroglycerin 1 gm 07/05/20 07:55 07/05/20 08:00 Nitro-Bid 2% Ud Packets TOP 07/05/20 07:56 1 gm STAT ONE Administration Nitroglycerin Confirm 07/05/20 07:57 Nitro-Bid 2% Ud Packets Administered 07/05/20 07:58 Dose 1 gm .ROUTE .STK-MED ONE Lab/Rad Data: Laboratory Result Diagrams 07/05/20 08:08 07/05/20 08:00 Laboratory Results 07/05/20 07/05/20 07/05/20 Range/Units 08:17 08:08 08:08 WBC 6.6 (4.0-10.5) K/mm3 RBC 4.62 (4.1-5.4) M/mm3 Hgb 14.2 (12.0-16.0) gm/dl Hct 44.0 (35-47) % MCV 95.2 (78-100) fl MCH 30.7 (26-32) pg MCHC 32.3 (32-36) g/dl RDW 13.9 (11.5-14.0) % Plt Count 204 (150-450) K/mm3 MPV 10.3 (7.5-11.0) fl Gran % 59.1 (36.0-66.0) % Eos # (Auto) 0.22 (0-0.5) Absolute Lymphs (auto) 2.03 (1.0-4.6) Absolute Monos (auto) 0.41 (0.0-1.3) Lymphocytes % 30.8 (24.0-44.0) % Monocytes % 6.2 (0.0-12.0) % Eosinophils % 3.3 (0.00-5.0) % Basophils % 0.6 (0.0-0.4) % Absolute Granulocytes 3.90 (1.4-6.9) Basophils # 0.04 (0-0.4) Sodium (137-145) mmol/L Potassium (3.5-5.1) mmol/L Chloride (98-107) mmol/L Carbon Dioxide (22-30) mmol/L Anion Gap (5-15) MEQ/L BUN (7-17) mg/dL Creatinine (0.52-1.04) mg/dL Estimated GFR ML/MIN Glucose (74-106) mg/dL Calcium (8.4-10.2) mg/dL Magnesium (1.6-2.3) mg/dL Total Bilirubin (0.2-1.3) mg/dL AST (14-36) U/L ALT (0-35) U/L Alkaline Phosphatase (38-126) U/L Troponin I (0.000-0.034) ng/mL Serum Total Protein (6.3-8.2) g/dL Albumin (3.5-5.0) g/dL TSH 3rd Generation 1.080 (0.47-4.68) mIU/L Urine Color (YELLOW) Urine Appearance (CLEAR) Urine pH (5-6) Ur Specific [place] (1.005-1.025) Urine Protein (Negative) Urine Ketones (NEGATIVE) Urine Blood (0-5) Deon/ul Urine Nitrite (NEGATIVE) Urine Bilirubin (NEGATIVE) Urine Urobilinogen (0-1) mg/dL Ur Leukocyte Esterase (NEGATIVE) Urine WBC (Auto) (0-5) /HPF Urine RBC (Auto) (0-2) /HPF U Epithel Cells (Auto) (FEW) /HPF Urine Bacteria (Auto) (NEGATIVE) /HPF Urine Mucus (Auto) (NEGATIVE) /HPF Urine Culture Reflexed (NO) Urine Glucose (NEGATIVE) mg/dL Urine Opiates Level NEGATIVE (NEGATIVE) Ur Methadone NEGATIVE (NEGATIVE) Urine Barbiturates NEGATIVE (NEGATIVE) Ur Phencyclidine (PCP) NEGATIVE (NEGATIVE) Urine Amphetamine NEGATIVE (NEGATIVE) U Benzodiazepine Level NEGATIVE (NEGATIVE) Urine Cocaine NEGATIVE (NEGATIVE) Urine Marijuana (THC) NEGATIVE (NEGATIVE) Ethyl Alcohol (0-10) mg/dL 07/05/20 07/05/20 07/05/20 Range/Units 08:00 08:00 07:48 WBC (4.0-10.5) K/mm3 RBC (4.1-5.4) M/mm3 Hgb (12.0-16.0) gm/dl Hct (35-47) % MCV (78-100) fl MCH (26-32) pg MCHC (32-36) g/dl RDW (11.5-14.0) % Plt Count (150-450) K/mm3 MPV (7.5-11.0) fl Gran % (36.0-66.0) % Eos # (Auto) (0-0.5) Absolute Lymphs (auto) (1.0-4.6) Absolute Monos (auto) (0.0-1.3) Lymphocytes % (24.0-44.0) % Monocytes % (0.0-12.0) % Eosinophils % (0.00-5.0) % Basophils % (0.0-0.4) % Absolute Granulocytes (1.4-6.9) Basophils # (0-0.4) Sodium 143 (137-145) mmol/L Potassium 4.0 (3.5-5.1) mmol/L Chloride 108 H (98-107) mmol/L Carbon Dioxide 23 (22-30) mmol/L Anion Gap 15.7 H (5-15) MEQ/L BUN 14 (7-17) mg/dL Creatinine 0.81 (0.52-1.04) mg/dL Estimated GFR > 60.0 ML/MIN Glucose 92 (74-106) mg/dL Calcium 9.4 (8.4-10.2) mg/dL Magnesium 2.1 (1.6-2.3) mg/dL Total Bilirubin 0.50 (0.2-1.3) mg/dL AST 24 (14-36) U/L ALT 19 (0-35) U/L Alkaline Phosphatase 82 (38-126) U/L Troponin I < 0.012 (0.000-0.034) ng/mL Serum Total Protein 6.9 (6.3-8.2) g/dL Albumin 4.1 (3.5-5.0) g/dL TSH 3rd Generation (0.47-4.68) mIU/L Urine Color YELLOW (YELLOW) Urine Appearance CLEAR (CLEAR) Urine pH 5.0 (5-6) Ur Specific [place] 1.018 (1.005-1.025) Urine Protein NEGATIVE (Negative) Urine Ketones NEGATIVE (NEGATIVE) Urine Blood SMALL (0-5) Deon/ul Urine Nitrite NEGATIVE (NEGATIVE) Urine Bilirubin NEGATIVE (NEGATIVE) Urine Urobilinogen NEGATIVE (0-1) mg/dL Ur Leukocyte Esterase SMALL (NEGATIVE) Urine WBC (Auto) 0-2 (0-5) /HPF Urine RBC (Auto) 0-2 (0-2) /HPF U Epithel Cells (Auto) RARE (FEW) /HPF Urine Bacteria (Auto) NONE (NEGATIVE) /HPF Urine Mucus (Auto) SLIGHT (NEGATIVE) /HPF Urine Culture Reflexed YES (NO) Urine Glucose NEGATIVE (NEGATIVE) mg/dL Urine Opiates Level (NEGATIVE) Ur Methadone (NEGATIVE) Urine Barbiturates (NEGATIVE) Ur Phencyclidine (PCP) (NEGATIVE) Urine Amphetamine (NEGATIVE) U Benzodiazepine Level (NEGATIVE) Urine Cocaine (NEGATIVE) Urine Marijuana (THC) (NEGATIVE) Ethyl Alcohol < 10 (0-10) mg/dL - Progress Progress: improved Air Movement: good Progress Note: 07/05/20 09:40 Patient reassessed. No active chest pain. Aspirin and Nitropaste administered. EKG shows normal sinus rhythm. We will admit for cardiac rule out. Dr. Light covering Dr. Ramirez. Dr. Light excepts admission. Plan of care discussed with patient. She agrees to admission at [facility] for further evaluation and treatment. Patient voices no other complaints or concerns at this time. Portions of this note were created with voice recognition technology. There may be grammatical, spelling, punctuation or sound alike errors 07/05/20 09:41 Blood Culture(s) Obtained: No Antibiotics given: No Discussed with : Andrew Will see patient in: hospital (observation) Counseled pt/family regarding: lab results, diagnosis, rad results - Departure Departure Disposition: Observation Clinical Impression: Heart palpitations, Chest pain, Osteopenia Condition: Stable Critical Care Time: No Referrals: DOCTOR,NO FAMILY [NON-STAFF PHY W/O PRIVILEGES] -
[2020-07-05] MEDS ORDERED: NITRO-BID 2% UD PACKETS ONE (07:57)
[2020-07-05] MEDS ORDERED: BABY ASPIRIN 81 MG CHEW ONE (07:59)
[2020-07-05 08:10] LABS: BASOPHIL % 0.6 % (0.0-0.4); Basophil (Absolute #) 0.04 (0-0.4); Eosinophil % 3.3 % (0.00-5.0); Eosinophil (Absolute #) 0.22 (0-0.5); Hemoglobin 14.2 gm/dl (12.0-16.0); Lymphocyte (Absolute #) 2.03 (1.0-4.6); Lymphocytes % 30.8 % (24.0-44.0); Mean Cell Volume 95.2 fl (78-100); Mean Corpuscular Hemoglobin 30.7 pg (26-32); Mean Corpuscular Hgb Concent. 32.3 g/dl (32-36); Mean Platelet Volume 10.3 fl (7.5-11.0); Monocyte (Absolute #) 0.41 (0.0-1.3); Monocytes % 6.2 % (0.0-12.0); Neutrophil % 59.1 % (36.0-66.0); Platelet Count 204 K/mm3 (150-450); Red Blood Count 4.62 M/mm3 (4.1-5.4); Red Cell Distribution Width 13.9 % (11.5-14.0); White Blood Count 6.6 K/mm3 (4.0-10.5)
[2020-07-05 08:25] LABS: ALBUMIN 4.1 g/dL (3.5-5.0); ALKALINE PHOSPHATASE 82 U/L (38-126); ANION GAP 15.7 MEQ/L (5-15); BLOOD UREA NITROGEN 14 mg/dL (7-17); CHLORIDE 108 mmol/L (98-107); Calcium 9.4 mg/dL (8.4-10.2); Carbon Dioxide 23 mmol/L (22-30); Creatinine 1 0.81 mg/dL (0.52-1.04); EST GLOMERULAR FILTRATION RATE > 60.0 ML/MIN; ETHYL ALCOHOL < 10 mg/dL (0-10); Glucose 92 mg/dL (74-106); MAGNESIUM 2.1 mg/dL (1.6-2.3); SGOT/AST 24 U/L (14-36); SGPT/ALT 19 U/L (0-35); SODIUM 143 mmol/L (137-145); Total Protein 6.9 g/dL (6.3-8.2)
[2020-07-05 08:26] LABS: Appearance CLEAR (CLEAR); Bilirubin NEGATIVE (NEGATIVE); Blood SMALL Ery/ul (0-5); Epithelial Cells RARE /HPF (FEW); Glucose NEGATIVE (NEGATIVE); Ketones NEGATIVE (NEGATIVE); Leukocyte Esterase SMALL (NEGATIVE); Mucus SLIGHT /HPF (NEGATIVE); Nitrite NEGATIVE (NEGATIVE); Protein,Urine Dip NEGATIVE (Negative); RBC 0-2 /HPF (0-2); Specific Gravity 1.018 (1.005-1.025); Urobilinogen NEGATIVE mg/dL (0-1); WBC 0-2 /HPF (0-5)
--- NOTE | 2020-07-05 08:37 | XRAY ---
Indication: Chest pain. Comparison: February 06, 2020. Portable chest remains hyperinflated and clear. Heart not enlarged for AP portable technique. Bony thorax intact again with mild osteopenia, mild degenerative changes, and old right humerus fracture with incompletely visualized orthopedic hardware. Impression: Continued nonacute chest with chronic features.
[2020-07-05 08:40] LABS: Amphetamine,Urine NEGATIVE (NEGATIVE); Barbiturate,Urine NEGATIVE (NEGATIVE); Benzodiazepine,Urine NEGATIVE (NEGATIVE); Cocaine,Urine NEGATIVE (NEGATIVE); Methadone,Urine NEGATIVE (NEGATIVE); Opiate,Urine NEGATIVE (NEGATIVE); PCP,Urine NEGATIVE (NEGATIVE); THC,Urine NEGATIVE (NEGATIVE)
[2020-07-05 10:59] LABS: INFLUENZA A NEGATIVE (NEGATIVE); INFLUENZA B NEGATIVE (NEGATIVE); RESPIRATORY SYNCTIAL VIRUS NEGATIVE (Negative)
[2020-07-05] MEDS ORDERED: MAALOX ES 30 ML UNIT DOSE PO PRN (11:20)
[2020-07-05] MEDS ORDERED: TYLENOL 325 MG PO PRN (11:20)
[2020-07-05] MEDS ORDERED: Zofran 4 MG/2 ML VIAL IV PRN (11:20)
[2020-07-05] MEDS ORDERED: Senokot-S Tablet PO PRN (11:20)
[2020-07-05] MEDS ORDERED: MILK OF MAGNESIA 30 ML PO PRN (11:20)
[2020-07-05] MEDS ORDERED: DUONEB 0.5-3 MG/3 ml Neb IH PRN (12:36)
[2020-07-05] MEDS ORDERED: BENADRYL 25 MG CAPSULE PO PRN (17:17)
[2020-07-05] MEDS ORDERED: xanAX 0.25 MG PO PRN (17:17)
[2020-07-05] MEDS ORDERED: NORCO 7.5/325 MG TAB PO PRN (17:17)
[2020-07-05] MEDS ORDERED: PROVENTIL 2.5 MG/3 ML NEB IH PRN (17:33)
[2020-07-05] MEDS ORDERED: Nitrostat 0.4 MG Tablet SL ONE (18:28)
[2020-07-05] MEDS ORDERED: Nitrostat 0.4 MG Tablet SL PRN (18:30)
[2020-07-05] MEDS: PATIENT OWN MEDICATION IH SCH (19:43)
[2020-07-06 05:27] LABS: Risk Ratio 3.6
[2020-07-06] MEDS: PATIENT OWN MEDICATION IH SCH (07:02)
[2020-07-06 07:13] VITALS: BP 117/56; PULSE 56; O2SAT 94
--- NOTE | 2020-07-06 08:50 | PCM.SSS ---
History of Present Illness - Chief Complaint Chief Complaint: ACS History of Present Illness: is a 74 year old female pt of mine from [facility] with asthma, hyperlipidemia, HTN, and Vit D deficiency who was admitted through ER to rule out [place]. She had been awake intermittently throughout the night with palpitations and slight shortness of breath. Also c/o tingling in the fingertips bilaterally. In the ER, EKG with no ST changes and intermittent PACs. Troponins have been neg x 5. Urine culture did show gram neg organism, ID & sensitivity pending. - Review of Systems Respiratory: Short Of Breath Cardiac: Chest Pain (Last night had momentary sharp chest pain, resolved before nurse responded to call button), Palpitations All Other Systems: Reviewed and Negative Medications & Allergies Home Medications: Home Medication List ALPRAZolam 0.25 MG [xanAX 0.25 MG] 0.25 mg PO HSPRN PRN 07/29/18 [History Confirmed 07/05/20] Hydrocodone Bit/Acetaminophen [Hydrocodon-Acetaminoph 7.5-325] 1 each PO DAILY PRN PRN 07/29/18 [History Confirmed 07/05/20] lisinopriL [Zestril] 40 mg PO DAILY 07/29/18 [History Confirmed 07/05/20] Budesonide/Formoterol Fumarate [Symbicort 160-4.5 Mcg Inhaler] 1 puff IH DAILY 11/17/18 [History Confirmed 07/05/20] Albuterol Sulfate [Albuterol Sulfate Hfa] 1 puff IH Q4HPRN PRN 10/24/19 [History Confirmed 07/05/20] Albuterol 2.5 mg/3 ml Neb [Proventil 2.5 mg/3 ml Neb] 1 neb IH Q4HPRN PRN 07/05/20 [History Confirmed 07/05/20] Diphenhydramine HCl 25 mg [Benadryl 25 mg Capsule] 12.5 mg PO Q4-6HPRN PRN 07/05/20 [History Confirmed 07/05/20] Cephalexin Mh 500 mg [Keflex 500 mg] 500 mg PO QID #28 capsule 07/06/20 [Rx] Allergies/Adverse Reactions: Allergies Allergy/AdvReac Type Severity Reaction Status Date / Time doxycycline Allergy Severe kidney Verified 07/05/20 07:43 problems Penicillins Allergy Unknown Verified 07/05/20 07:43 influenza virus vaccine Allergy Verified 07/05/20 12:55 trivalent Sulfa (Sulfonamide AdvReac vomiting, Verified 07/05/20 07:43 Antibiotics) dizziness [Sulfa(Sulfonamide Antibiotics)] flu vaccine Allergy Severe Swelling Uncoded 07/05/20 07:43 - Past Medical History Past Medical History: Yes Neurological History: Migraines ENT History: No Pertinent History Cardiac History: High Cholesterol, Hypertension Respiratory History: Asthma Endocrine Medical History: No Pertinent History Musculoskelatal History: No Pertinent History GI Medical History: Diverticulitis, Hemorrhoids History: No Pertinent History Pyscho-Social History: No Pertinent History Reproductive Disorders: No Pertinent History, Fibroids - Female History Hx Last Menstrual Period: post Are you now?: No - Past Surgical History Past Surgical History: Yes Neuro Surgical History: No Pertinent History Cardiac History: No Pertinent History Respiratory Surgery: No Pertinent History GI Surgical History: Cholecystectomy, Colon Resection Genitourinary Surgical Hx: No Pertinent History Musculskeletal Surgical Hx: Orthopedic Surgery Female Surgical History: Hysterectomy Other Surgical History: fx rt shoulder 2012 w/ salo placed - Social History Smoking Status: Never smoker Exposure to second hand smoke: No Alcohol: None Drug Use: none - Physical Exam Vital Signs: Vital Signs - 24 hr Temp Pulse Pulse Resp BP Pulse Ox 07/06/20 07:12 98.1 F 56 L 20 117/56 94 L 07/06/20 07:02 68 16 91 L 07/06/20 04:00 98.1 F 62 20 150/83 92 L 07/05/20 23:36 98.1 F 62 16 135/67 94 L 07/05/20 19:43 62 18 92 L 07/05/20 19:05 98.4 F 67 22 123/64 91 L 07/05/20 16:00 96.4 F 67 16 136/62 93 L 07/05/20 12:44 63 16 98 07/05/20 11:37 96.2 F 65 20 175/81 97 07/05/20 11:36 96.2 F 65 20 175/81 97 07/05/20 11:25 96.2 F 65 20 175/81 97 07/05/20 11:20 97 04/08/21 11:05 69 22 143/87 95 07/05/20 10:09 71 07/05/20 10:03 68 18 170/88 98 07/05/20 09:42 98 07/05/20 09:07 61 20 166/79 96 General Appearance: no apparent distress, alert Neurologic Exam: oriented x 3, cooperative Eye Exam: eyes nml inspection Ears, Nose, Throat Exam: moist mucous membranes Respiratory Exam: normal breath sounds, lungs clear, No crackles/rales, No rhonchi, No wheezing Cardiovascular Exam: regular rate/rhythm, normal heart sounds, No murmur Gastrointestinal/Abdomen Exam: soft, normal bowel sounds, No tenderness, No distention, No mass, No guarding, No rebound Back Exam: normal inspection, No rash Extremity Exam: No pedal edema, No swelling Skin Exam: normal color, warm, dry, No rash Results - Labs Lab/Micro Results: Lab Results-Last 24 Hours 07/05/20 07/05/20 07/05/20 Range/Units 08:08 08:17 10:16 Troponin I (0.000-0.034) ng/mL Triglycerides (30-150) mg/dL Cholesterol (50-200) mg/dL LDL Cholesterol (30-100) mg/dL HDL Cholesterol (40-60) mg/dL Heart Disease Risk Ratio TSH 3rd Generation 1.080 (0.47-4.68) mIU/L Urine Opiates Level NEGATIVE (NEGATIVE) Ur Methadone NEGATIVE (NEGATIVE) Urine Barbiturates NEGATIVE (NEGATIVE) Ur Phencyclidine (PCP) NEGATIVE (NEGATIVE) Urine Amphetamine NEGATIVE (NEGATIVE) U Benzodiazepine Level NEGATIVE (NEGATIVE) Urine Cocaine NEGATIVE (NEGATIVE) Urine Marijuana (THC) NEGATIVE (NEGATIVE) Influenza Type A Ag NEGATIVE (NEGATIVE) Influenza Type B Ag NEGATIVE (NEGATIVE) RSV (PCR) NEGATIVE (Negative) SARS-CoV-2 (PCR) NEGATIVE (NEGATIVE) 07/05/20 07/05/20 07/05/20 Range/Units 10:58 14:27 17:16 Troponin I < 0.012 < 0.012 < 0.012 (0.000-0.034) ng/mL Triglycerides (30-150) mg/dL Cholesterol (50-200) mg/dL LDL Cholesterol (30-100) mg/dL HDL Cholesterol (40-60) mg/dL Heart Disease Risk Ratio TSH 3rd Generation (0.47-4.68) mIU/L Urine Opiates Level (NEGATIVE) Ur Methadone (NEGATIVE) Urine Barbiturates (NEGATIVE) Ur Phencyclidine (PCP) (NEGATIVE) Urine Amphetamine (NEGATIVE) U Benzodiazepine Level (NEGATIVE) Urine Cocaine (NEGATIVE) Urine Marijuana (THC) (NEGATIVE) Influenza Type A Ag (NEGATIVE) Influenza Type B Ag (NEGATIVE) RSV (PCR) (Negative) SARS-CoV-2 (PCR) (NEGATIVE) 07/05/20 07/06/20 Range/Units 18:40 04:35 Troponin I < 0.012 (0.000-0.034) ng/mL Triglycerides 106 (30-150) mg/dL Cholesterol 213 H (50-200) mg/dL LDL Cholesterol 116 H (30-100) mg/dL HDL Cholesterol 59 (40-60) mg/dL Heart Disease Risk Ratio 3.6 TSH 3rd Generation (0.47-4.68) mIU/L Urine Opiates Level (NEGATIVE) Ur Methadone (NEGATIVE) Urine Barbiturates (NEGATIVE) Ur Phencyclidine (PCP) (NEGATIVE) Urine Amphetamine (NEGATIVE) U Benzodiazepine Level (NEGATIVE) Urine Cocaine (NEGATIVE) Urine Marijuana (THC) (NEGATIVE) Influenza Type A Ag (NEGATIVE) Influenza Type B Ag (NEGATIVE) RSV (PCR) (Negative) SARS-CoV-2 (PCR) (NEGATIVE) Microbiology 07/05/20 07:48 Urine Culture - Preliminary Urine, Void GRAM NEGATIVE ID AND SENSITIVITY PENDING - Radiology Impressions Radiology Exams & Impressions: Radiology Procedures Category Date Time Status CHEST 1 VIEW (PORTABLE) Stat Exams 07/05/20 07:49 Completed - Other Procedures and Tests Respiratory Therapy 07/05/20 12:36 Respiratory Therapy Assessment DAILY 07/05/20 19:00 Respiratory MDI BID 07/07/20 06:00 EKG ROUTINE 07/08/20 06:00 EKG ROUTINE Assessment/Plan (1) Heart palpitations Current Visit: Yes Status: Acute Assessment & Plan: echo today; f/u with me in 1 week. May have been related to UTI. Code(s): R00.2 - PALPITATIONS (2) UTI (urinary tract infection) Current Visit: Yes Status: Acute Qualifiers: Urinary tract infection type: acute cystitis Hematuria presence: without hematuria Qualified Code(s): N30.00 - Acute cystitis without hematuria Assessment & Plan: rocephin IV x 1 here then keflex at home. Code(s): N39.0 - URINARY TRACT INFECTION, SITE NOT SPECIFIED Hospital Summary - Hospital Course Hospital Course: is a 74 year old female pt of mine from [facility] with asthma, hyperlipidemia, HTN, and Vit D deficiency who was admitted through ER to rule out [place]. She had been awake intermittently throughout the night with palpitations and slight shortness of breath. Also c/o tingling in the fingertips bilaterally. In the ER, EKG with no ST changes and intermittent PACs. Troponins have been neg x 5. Urine culture did show G-, ID and sens pending. Will give 1g IV rocephin now and send home on keflex. Will get echocardiogram before discharge to home. This morning the patient is feeling fine. Juan Antonio po. WIll f/u with me in 1 week. - Vitals & Intake/Output Vital Signs: Vital Signs Temperature 98.1 F 07/06/20 07:12 Pulse Rate 56 L 07/06/20 07:12 Respiratory Rate 20 07/06/20 07:12 Blood Pressure 117/56 07/06/20 07:12 O2 Sat by Pulse Oximetry 94 L 07/06/20 07:12 Intake & Output: Intake & Output 07/03/20 07/04/20 07/05/20 07/06/20 11:59 11:59 11:59 11:59 Intake Total 480 Output Total 1500 Balance -1020 Weight 64.7 kg 64.1 kg - Lab Result Diagrams: 07/05/20 08:08 07/05/20 08:00 Lab Results-Last 24 Hrs: Lab Results-Last 24 Hours 07/05/20 07/05/20 07/05/20 Range/Units 08:08 08:17 10:16 Troponin I (0.000-0.034) ng/mL Triglycerides (30-150) mg/dL Cholesterol (50-200) mg/dL LDL Cholesterol (30-100) mg/dL HDL Cholesterol (40-60) mg/dL Heart Disease Risk Ratio TSH 3rd Generation 1.080 (0.47-4.68) mIU/L Urine Opiates Level NEGATIVE (NEGATIVE) Ur Methadone NEGATIVE (NEGATIVE) Urine Barbiturates NEGATIVE (NEGATIVE) Ur Phencyclidine (PCP) NEGATIVE (NEGATIVE) Urine Amphetamine NEGATIVE (NEGATIVE) U Benzodiazepine Level NEGATIVE (NEGATIVE) Urine Cocaine NEGATIVE (NEGATIVE) Urine Marijuana (THC) NEGATIVE (NEGATIVE) Influenza Type A Ag NEGATIVE (NEGATIVE) Influenza Type B Ag NEGATIVE (NEGATIVE) RSV (PCR) NEGATIVE (Negative) SARS-CoV-2 (PCR) NEGATIVE (NEGATIVE) 07/05/20 07/05/20 07/05/20 Range/Units 10:58 14:27 17:16 Troponin I < 0.012 < 0.012 < 0.012 (0.000-0.034) ng/mL Triglycerides (30-150) mg/dL Cholesterol (50-200) mg/dL LDL Cholesterol (30-100) mg/dL HDL Cholesterol (40-60) mg/dL Heart Disease Risk Ratio TSH 3rd Generation (0.47-4.68) mIU/L Urine Opiates Level (NEGATIVE) Ur Methadone (NEGATIVE) Urine Barbiturates (NEGATIVE) Ur Phencyclidine (PCP) (NEGATIVE) Urine Amphetamine (NEGATIVE) U Benzodiazepine Level (NEGATIVE) Urine Cocaine (NEGATIVE) Urine Marijuana (THC) (NEGATIVE) Influenza Type A Ag (NEGATIVE) Influenza Type B Ag (NEGATIVE) RSV (PCR) (Negative) SARS-CoV-2 (PCR) (NEGATIVE) 07/05/20 07/06/20 Range/Units 18:40 04:35 Troponin I < 0.012 (0.000-0.034) ng/mL Triglycerides 106 (30-150) mg/dL Cholesterol 213 H (50-200) mg/dL LDL Cholesterol 116 H (30-100) mg/dL HDL Cholesterol 59 (40-60) mg/dL Heart Disease Risk Ratio 3.6 TSH 3rd Generation (0.47-4.68) mIU/L Urine Opiates Level (NEGATIVE) Ur Methadone (NEGATIVE) Urine Barbiturates (NEGATIVE) Ur Phencyclidine (PCP) (NEGATIVE) Urine Amphetamine (NEGATIVE) U Benzodiazepine Level (NEGATIVE) Urine Cocaine (NEGATIVE) Urine Marijuana (THC) (NEGATIVE) Influenza Type A Ag (NEGATIVE) Influenza Type B Ag (NEGATIVE) RSV (PCR) (Negative) SARS-CoV-2 (PCR) (NEGATIVE) Micro Results-Entire Visit: Microbiology 07/05/20 07:48 Urine Culture - Preliminary Urine, Void GRAM NEGATIVE ID AND SENSITIVITY PENDING - Radiology Exams Ordered Rad Exams-Entire Visit: Radiology Procedures Category Date Time Status CHEST 1 VIEW (PORTABLE) Stat Exams 07/05/20 07:49 Completed - Procedures and Test Procedures and Tests throughout Hospitalization: Therapy Orders & Screens 07/05/20 11:20 EKG Q8HX2,QAMX3,PRN Comment: 07/05/20 11:43 RT Screen per Nursing Assess ONCE Comment: Protocol Order Physician Instructions: Greater than 3 points order RT Admission Screen Reason For Exam: Triggered on Admission Diagnosis: ACS Diagnosis: ACS Pneumonia: No Home O2: No Asthma: Yes CHF: No Home CPAP/BIPAP: No Home Nebs/MDI: Yes Total Points: 9 07/05/20 12:36 Respiratory Therapy Assessment DAILY Comment: Diagnosis: ACS 07/05/20 16:00 EKG ROUTINE Comment: Diagnosis: ACS 07/05/20 18:31 EKG STAT Comment: Diagnosis: ACS 07/05/20 19:00 Respiratory MDI BID Comment: PT'S HOME SYMBICORT 2 PUFFS BID Diagnosis: ACS 07/06/20 06:00 EKG ROUTINE Comment: Diagnosis: ACS 07/07/20 06:00 EKG ROUTINE Comment: Diagnosis: ACS 07/08/20 06:00 EKG ROUTINE Comment: Diagnosis: ACS - Discharge Disposition: Home, Self-Care Condition: Good Prescriptions: New Cephalexin Mh 500 mg [Keflex 500 mg] 500 mg PO QID #28 capsule Continue Hydrocodone Bit/Acetaminophen [Hydrocodon-Acetaminoph 7.5-325] 1 each PO DAILY PRN PRN PRN Reason: migraine ALPRAZolam 0.25 MG [xanAX 0.25 MG] 0.25 mg PO HSPRN PRN PRN Reason: anxiety/sleep lisinopriL [Zestril] 40 mg PO DAILY Budesonide/Formoterol Fumarate [Symbicort 160-4.5 Mcg Inhaler] 1 puff IH DAILY Albuterol Sulfate [Albuterol Sulfate Hfa] 1 puff IH Q4HPRN PRN PRN Reason: Shortness Of Breath/Wheezing Albuterol 2.5 mg/3 ml Neb [Proventil 2.5 mg/3 ml Neb] 1 neb IH Q4HPRN PRN PRN Reason: Shortness Of Breath/Wheezing Diphenhydramine HCl 25 mg [Benadryl 25 mg Capsule] 12.5 mg PO Q4-6HPRN PRN PRN Reason: Itching Follow up with: CECIL ZAYAS [Primary Care Provider] - 07/13/20 2:00 pm
[2020-07-06] MEDS ORDERED: ROCEPHIN 1 Gm-D5w 50 ml Bag** 1 G/50 ML IVPB IV SCH (10:00)
[2020-07-06] MEDS ORDERED: NON-FORMULARY ITEM (Lisinopril [Zestril] 40 MG) PO SCH (10:00)
[2020-07-06] MEDS ORDERED: Zestril 20 MG PO SCH (10:00)
--- NOTE | 2020-07-09 07:49 | ECHO ---
Transthoracic echocardiographic examination and color Doppler was done on 07/06/2020. INDICATION: Palpitations. IMPRESSION: 1) NO REGIONAL WALL MOTION ABNORMALITY. ESTIMATED GLOBAL LEFT VENTRICULAR EJECTION FRACTION BETWEEN 60 AND 65%. 2) CONCENTRIC LEFT VENTRICULAR HYPERTROPHY WITH A PROMINENT BASAL SEPTUM. 3) TRACE MITRAL REGURGITATION. 4) MILDLY DILATED RIGHT SIDE CHAMBERS. 5) TRACE TRICUSPID REGURGITATION. The left ventricle is visualized and demonstrated adequate motion of all the segments. Estimated global left ventricular ejection fraction of around 60 to 65%. There is concentric left ventricular hypertrophy with a prominent basal septum. There is no significant gradient across the left ventricular outflow tract. The mitral valve is seen and this opens adequately. There is trace mitral regurgitation. Left atrium is normal. The aortic valve opens adequately. The right side chambers are mildly dilated. There is trace tricuspid regurgitation (Note that the RV systolic pressure was measured at 51 mmHg and this may be an over estimation for which reason additional interrogation of tricuspid regurgitation to reassess RV systolic pressure more accurately with measurement of mean gradient).
== END 2020-07-06 10:51 | disposition home or self-care (01) ==
LOC: ED 07:30 → MED SURG 11:13
PROVIDERS: ADMIT Family Medicine; ATTEND Family Medicine
DX: R00.2 Palpitations (principal); N39.0 Urinary tract infection, site not specified; R07.9 Chest pain, unspecified; I10 Essential (primary) hypertension; E78.5 Hyperlipidemia, unspecified; J45.909 Unspecified asthma, uncomplicated; E55.9 Vitamin D deficiency, unspecified; Z79.899 Other long term (current) drug therapy; Z20.828 Contact with and (suspected) exposure to other viral communicable diseases; E78.00 Pure hypercholesterolemia, unspecified; R20.2 Paresthesia of skin
CPT/HCPCS: 0241U; 36000; 36415; 71045; 80053; 80061; 80307; 81001; 83721; 83735; 84443; 84484; 85025; 87077; 87086; 87186; 93005; 93041; 93268; 93306; 94640; 94760; 99285; G0378; G0480; J0696; A9270-GY

== ENCOUNTER 2022-03-12 16:36 | Emergency (ER) | payer MEDICARE ==
[2022-03-12 16:52] VITALS: BP 194/80; PULSE 62; O2SAT 98
--- NOTE | 2022-03-12 17:07 | ERPHSYRPT ---
- History of Present Illness Time Seen by Provider: 03/12/22 17:03 Source: patient Exam Limitations: no limitations Patient Subjective Stated Complaint: PT states "I was just sitting there eating mohawk food and all of a sudden my nose just started to bleed." Triage Nursing Assessment: Pt presented alert and oriented X 3, skin pwd. Pt ambulates with an upright steady gait, able to speak in clear full sentenecs pt right nostril bleeding. Physician History: Patient is a 76-year-old female who was at a [employer] restaurant when she suddenly had bleeding from the right nostril. She is on Eliquis to prevent TIAs and strokes she does not have an option as to the use of the drug. She has had 5 episodes where her nose would spontaneously start bleeding. She has never had a problem getting it stopped. She was offered packing but says she does not want it. Timing/Duration: abrupt onset Severity: moderate ENT Location: nose (Right nostril) Prearrival Treatment: squeezing nostrils Modifying Factors: Improves With: activity Associated Symptoms: epistaxis Allergies/Adverse Reactions: doxycycline Allergy (Severe, Verified 07/05/20 07:43) kidney problems Penicillins Allergy (Unknown, Verified 07/05/20 07:43) influenza virus vaccine trivalent Allergy (Verified 07/05/20 12:55) Sulfa (Sulfonamide Antibiotics) [Sulfa(Sulfonamide Antibiotics)] Adverse Reaction (Verified 07/05/20 07:43) vomiting, dizziness flu vaccine Allergy (Severe, Uncoded 07/05/20 07:43) Swelling Home Medications: ALPRAZolam 0.25 MG [xanAX 0.25 MG] 0.25 mg PO HSPRN PRN 07/29/18 [History] Hydrocodone/Acetaminophen [Hydrocodon-Acetaminoph 7.5-325] 1 each PO DAILY PRN PRN 07/29/18 [History] lisinopriL [Zestril] 40 mg PO DAILY 07/29/18 [History] Budesonide/Formoterol Fumarate [Symbicort 160-4.5 Mcg Inhaler] 1 puff IH DAILY 11/17/18 [History] Albuterol Sulfate [Albuterol Sulfate Hfa] 1 puff IH Q4HPRN PRN 10/24/19 [History ] Albuterol 2.5 mg/3 ml Neb [Proventil 2.5 mg/3 ml Neb] 1 neb IH Q4HPRN PRN 07/05/20 [History] Diphenhydramine HCl 25 mg [Benadryl 25 mg Capsule] 12.5 mg PO Q4-6HPRN PRN 07/05/20 [History] Apixaban [Eliquis 5 mg Tablet] 5 mg PO BID 03/12/22 [History] Carvedilol 12.5 mg [Coreg 12.5 mg] 12.5 mg PO BID 03/12/22 [History] Hx Tetanus, Diphtheria Vaccination/Date Given: Yes Hx Influenza Vaccination/Date Given: Yes Hx Pneumococcal Vaccination/Date Given: Yes Immunizations Up to Date: Yes Travel Risk - International Travel Have you traveled outside of the country in past 3 weeks: No - Coronavirus Screening Are you exhibiting any of the following symptoms?: No Close contact with a COVID-19 positive Pt in past 14-21 Days: No - Vaccine Status Have you recieved a Covid-19 vaccination: Yes Software [employer]: Moderna - Vaccination Dates Date of 2cond Vaccination (if applicable): na - Review of Systems Constitutional: No Fever, No Chills Eyes: No Symptoms Ears, Nose, & Throat: No Symptoms, Epistaxis Respiratory: No Cough, No Dyspnea Cardiac: No Chest Pain, No Edema, No Syncope Abdominal/Gastrointestinal: No Abdominal Pain, No Nausea, No Vomiting, No Diarrhea Genitourinary Symptoms: No Dysuria Musculoskeletal: No Back Pain, No Neck Pain Skin: No Rash Neurological: No Dizziness, No Focal Weakness, No Sensory Changes Psychological: No Symptoms Endocrine: No Symptoms All Other Systems: Reviewed and Negative - Past Medical History Pertinent Past Medical History: Yes Neurological History: Migraines ENT History: No Pertinent History Cardiac History: High Cholesterol, Hypertension Respiratory History: Asthma Endocrine Medical History: No Pertinent History Musculoskeletal History: No Pertinent History GI Medical History: Diverticulitis, Hemorrhoids History: No Pertinent History Psycho-Social History: No Pertinent History Female Reproductive Disorders: No Pertinent History, Fibroids - Past Surgical History Past Surgical History: Yes Neuro Surgical History: No Pertinent History Cardiac: No Pertinent History Respiratory: No Pertinent History Gastrointestinal: Cholecystectomy, Colon Resection Genitourinary: No Pertinent History Musculoskeletal: Orthopedic Surgery Female Surgical History: Hysterectomy Other Surgical History: fx rt shoulder 2012 w/ salo placed - Social History Smoking Status: Never smoker Exposure to second hand smoke: No Drug Use: none Patient Lives Alone: No - Nursing Vital Signs Nursing Vital Signs: Initial Vital Signs Temperature 97.5 F 03/12/22 16:46 Pulse Rate 62 03/12/22 16:46 Respiratory Rate 20 03/12/22 16:46 Blood Pressure 194/80 03/12/22 16:46 O2 Sat by Pulse Oximetry 98 03/12/22 16:46 Pain Scale Pain Intensity 0 - Physical Exam General Appearance: no apparent distress, alert Eye Exam: bilateral eye: PERRL, EOMI Ear Exam: bilateral ear: auricle normal Nasal Exam: normal inspection, dried blood, No active bleeding Throat Exam: pharynx normal, moist mucus membranes, No tonsillar exudate Neck Exam: supple Cardiovascular/Respiratory Exam: normal breath sounds, regular rate/rhythm Abdominal Exam: non-tender, soft Neurologic Exam: alert, oriented x 3, sensation nml, No motor deficits Skin Exam: normal color, warm, dry SpO2 Interpretation: normal SpO2: 98 O2 Delivery: Room Air - Course Nursing assessment & vital signs reviewed: Yes Ordered Tests: Active Orders 24 hr Category Date Time Status CBC W DIFF Stat Lab 03/12/22 17:09 Completed PT INR [PROTIME WITH INR] Stat Lab 03/12/22 17:09 Completed PTT Stat Lab 03/12/22 17:09 Completed Lab/Rad Data: Laboratory Result Diagrams 03/12/22 17:09 Laboratory Results 03/12/22 03/12/22 Range/Units 17:09 17:09 WBC 6.6 (4.0-10.5) x10^3/uL RBC 4.22 (4.1-5.4) x10^6/uL Hgb 13.4 (12.0-16.0) g/dL Hct 41.4 (35-47) % MCV 98.1 (78-100) fL MCH 31.8 (26-32) pg MCHC 32.4 (32-36) g/dL RDW 13.1 (11.5-14.0) % Plt Count 194 (150-450) x10^3/uL MPV 10.4 (7.5-11.0) fL Gran % 60.7 (36.0-66.0) % Immature Gran % (Auto) 0.3 (0.00-0.4) % Nucleat RBC Rel Count 0.0 (0.00-0.1) % Eos # (Auto) 0.18 (0-0.5) x10^3/uL Immature Gran # (Auto) 0.02 (0.00-0.03) x10^3u/L Absolute Lymphs (auto) 1.94 (1.0-4.6) x10^3/uL Absolute Monos (auto) 0.41 (0.0-1.3) x10^3/uL Absolute Nucleated RBC 0.00 (0.00-0.01) x10^3u/L Lymphocytes % 29.3 (24.0-44.0) % Monocytes % 6.2 (0.0-12.0) % Eosinophils % 2.7 (0.00-5.0) % Basophils % 0.8 (0.0-0.4) % Absolute Granulocytes 4.01 (1.4-6.9) x10^3/uL Basophils # 0.05 (0-0.4) x10^3/uL PT 11.2 (9.4-12.5) SECONDS INR 1.06 (0.8-3.0) APTT 29.9 (25.1-36.5) SECONDS - Progress Progress: improved - Departure Departure Disposition: Home Clinical Impression: Epistaxis Condition: Stable Critical Care Time: No Referrals: CECIL WOODS [Primary Care Provider] - Follow up/PCP as directed Instructions: Nosebleeds (DC)
[2022-03-12 17:33] LABS: INR 1.06 (0.8-3.0); PROTIME 11.2 SECONDS (9.4-12.5); PTT 29.9 SECONDS (25.1-36.5)
[2022-03-12 17:49] LABS: Absolute Neutrophil Ct (ANC) 4.01 x10^3/uL (1.4-6.9); Basophil (Absolute #) 0.05 x10^3/uL (0-0.4); Eosinophil % 2.7 % (0.00-5.0); Eosinophil (Absolute #) 0.18 x10^3/uL (0-0.5); Hematocrit 41.4 % (35-47); Hemoglobin 13.4 g/dL (12.0-16.0); Lymphocyte (Absolute #) 1.94 x10^3/uL (1.0-4.6); Lymphocytes % 29.3 % (24.0-44.0); Mean Cell Volume 98.1 fL (78-100); Mean Corpuscular Hemoglobin 31.8 pg (26-32); Mean Corpuscular Hgb Concent. 32.4 g/dL (32-36); Mean Platelet Volume 10.4 fL (7.5-11.0); Monocyte (Absolute #) 0.41 x10^3/uL (0.0-1.3); Monocytes % 6.2 % (0.0-12.0); Neutrophil % 60.7 % (36.0-66.0); Platelet Count 194 x10^3/uL (150-450); Red Blood Count 4.22 x10^6/uL (4.1-5.4); Red Cell Distribution Width 13.1 % (11.5-14.0); White Blood Count 6.6 x10^3/uL (4.0-10.5)
== END 2022-03-12 18:04 | disposition home or self-care (01) ==
LOC: ED 16:36
DX: R04.0 Epistaxis (principal); D68.32 Hemorrhagic disorder due to extrinsic circulating anticoagulants; T45.515A Adverse effect of anticoagulants, initial encounter; Y92.511 Restaurant or cafe as the place of occurrence of the external cause; E78.5 Hyperlipidemia, unspecified; I10 Essential (primary) hypertension; Z79.899 Other long term (current) drug therapy; Z79.01 Long term (current) use of anticoagulants
CPT/HCPCS: 36415; 85025; 85610; 85730; 99282

== ENCOUNTER 2022-06-08 10:37 | Emergency (ER) | payer MEDICARE ==
--- NOTE | 2022-06-08 11:51 | ERPHSYRPT ---
- History of Present Illness Time Seen by Provider: 06/08/22 11:45 Source: patient, family Exam Limitations: no limitations Patient Subjective Stated Complaint: Pt states "I have had a nose bleed for 2 hours. It has happened for the past 5 days." Triage Nursing Assessment: Pt presented alert and oriented X 3, skin pwd. PT has blood coming out of both nostrils. pt in no apparent respiratory distress. Physician History: Pt states "I have had a nose bleed for 2 hours. It has happened for the past 5 days." Patient is 76-year-old female with significant past medical history of multiple TIAs in the past is on Eliquis 5 mg twice a day for last 2 to 3 years started having a nosebleed 5 days ago. Patient was advised to keep the pressure for 20 minutes but did not help. Patient usually have a nosebleed in the morning. Patient is continues to take the Eliquis and the last dose was yesterday. She did not take her Eliquis today morning. She denies any other symptoms. Patient states that she has a little bit irritation in the back of the throat and because she has swallowed the blood she is becoming little bit stomach upset. Timing/Duration: abrupt onset Severity: moderate ENT Location: nose Prearrival Treatment: no prearrival treatment Associated Symptoms: denies symptoms Allergies/Adverse Reactions: doxycycline Allergy (Severe, Verified 07/05/20 07:43) kidney problems Penicillins Allergy (Unknown, Verified 07/05/20 07:43) influenza virus vaccine trivalent Allergy (Verified 07/05/20 12:55) Sulfa (Sulfonamide Antibiotics) [Sulfa(Sulfonamide Antibiotics)] Adverse Reaction (Verified 07/05/20 07:43) vomiting, dizziness flu vaccine Allergy (Severe, Uncoded 07/05/20 07:43) Swelling Home Medications: Apixaban [Eliquis 2.5 mg Tablet] 5 mg PO BID 06/08/22 [History] Carvedilol 12.5 mg [Coreg 12.5 mg] 12.5 mg PO BID 06/08/22 [History] Lisinopril 20 mg [Zestril 20 MG] 40 mg PO DAILY 06/08/22 [History] Hx Tetanus, Diphtheria Vaccination/Date Given: Yes Hx Influenza Vaccination/Date Given: Yes Hx Pneumococcal Vaccination/Date Given: Yes Immunizations Up to Date: Yes Travel Risk - International Travel Have you traveled outside of the country in past 3 weeks: No - Coronavirus Screening Are you exhibiting any of the following symptoms?: No Close contact with a COVID-19 positive Pt in past 14-21 Days: No - Vaccine Status Have you recieved a Covid-19 vaccination: Yes 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 - Vaccination Dates Date of 2cond Vaccination (if applicable): na - Review of Systems Constitutional: No Fever, No Chills Eyes: No Symptoms Ears, Nose, & Throat: Nose Discharge (right nostril bleeding) Respiratory: No Cough, No Dyspnea Cardiac: No Chest Pain, No Edema, No Syncope Abdominal/Gastrointestinal: No Abdominal Pain, No Nausea, No Vomiting, No Diarrhea Genitourinary Symptoms: No Dysuria Musculoskeletal: No Back Pain, No Neck Pain Skin: No Rash Neurological: No Dizziness, No Focal Weakness, No Sensory Changes Psychological: No Symptoms Endocrine: No Symptoms All Other Systems: Reviewed and Negative - Past Medical History Pertinent Past Medical History: Yes Neurological History: Migraines ENT History: No Pertinent History Cardiac History: High Cholesterol, Hypertension Respiratory History: Asthma Endocrine Medical History: No Pertinent History Musculoskeletal History: No Pertinent History GI Medical History: Diverticulitis, Hemorrhoids History: No Pertinent History Psycho-Social History: No Pertinent History, Depression Female Reproductive Disorders: No Pertinent History, Fibroids - Past Surgical History Past Surgical History: Yes Neuro Surgical History: No Pertinent History Cardiac: No Pertinent History Respiratory: No Pertinent History Gastrointestinal: Cholecystectomy, Colon Resection Genitourinary: No Pertinent History Musculoskeletal: Orthopedic Surgery Female Surgical History: Hysterectomy Other Surgical History: fx rt shoulder 2012 w/ salo placed - Social History Smoking Status: Never smoker Exposure to second hand smoke: No Drug Use: none Patient Lives Alone: No - Nursing Vital Signs Nursing Vital Signs: Initial Vital Signs Pulse Rate 65 06/08/22 10:43 Respiratory Rate 20 06/08/22 10:43 Blood Pressure 172/102 06/08/22 10:43 O2 Sat by Pulse Oximetry 99 06/08/22 10:43 Pain Scale Pain Intensity 0 - Physical Exam General Appearance: no apparent distress, alert Eye Exam: bilateral eye: PERRL, EOMI Nasal Exam: active bleeding (right anterior nostril) Throat Exam: pharynx normal, moist mucus membranes, No tonsillar exudate Neck Exam: supple Cardiovascular/Respiratory Exam: normal breath sounds, regular rate/rhythm Abdominal Exam: non-tender, soft Neurologic Exam: alert, oriented x 3, sensation nml, No motor deficits Skin Exam: normal color, warm, dry SpO2: 99 - Course Nursing assessment & vital signs reviewed: Yes - Progress Progress: improved Counseled pt/family regarding: diagnosis, need for follow-up Medical Desision Making - Discussion of managment Reviewed:: Need for additional workup - Diagnostic Testing Diagnostic test were ordered, analyzed, and reviewed by me: No - Risk of complications The pt has a mod risk of morbidity or mortality based on: Need for prescription drug management The pt has a high risk of morbidity or mortality based on: Drug therapy r equiring intensive monitoring for toxicity - Departure Departure Disposition: Home Clinical Impression: Arterial nasal hemorrhage, On apixaban therapy Anticoagulant adverse reaction Qualifiers: Encounter type: initial encounter Qualified Code(s): T45.515A - Adverse effect of anticoagulants, initial encounter Condition: Stable Critical Care Time: Yes Critical Care Time(excluding separately billable procedures): Critical 30-74 mins Referrals: CECIL WOODS [Primary Care Provider] - Follow up/PCP as directed Instructions: Nosebleeds (DC), Apixaban Additional Instructions: Please keep these nasal packing at home. Removed after 30 to 40 minutes and see if you are still bleeding. If you are not bleeding you can keep the nose well packed off but if you have some bleeding you can put it back for another 1 hour. We have given you some nasal packing cotton balls and nurse will show you how to pack it in. Please hold your apixaban for 2 days. Follow-up with your primary care doctor on Thursday or Thursday and let them evaluate you for bleeding. If your bleeding continues you can come back to the emergency room. You have swallowed mild to moderate amount of blood in your stomach so you will have a black tarry stool in next 2 to 3 days. Discharge/Care Plan EZ BAUM was seen on 06/08/22 in the Emergency Room. The patient was counseled regarding Diagnosis,Lab results, Imaging studies, need for follow up and when to return to the Emergency Room. Prescriptions given: Discharge Note I have spoken with the patient and/or caregivers. I have explained the patient's condition, diagnosis and treatment plan based on the information available to me at this time. I have answered the patient's and/or caregiver's questions and addressed any concerns. The patient and/or caregivers have as good understanding of the patient's diagnosis, condition and treatment plan as can be expected at this point. The vital signs have been stable. The patient's condition is stable and appropriate for discharge from the emergency department. The patient will pursue further outpatient evaluation with the primary care physician or other designated or consulting physician as outlined in the discharge instructions. The patient and/or caregivers are agreeable to this plan of care and follow-up instructions have been explained in detail. The patient and/or caregivers have received these instruction. The patient/and or caregivers are aware that any significant change in condition or worsening of symptoms should prompt an immediate return to this or the closest emergency department or call 911. EZ BAUM was seen on 06/08/22 n the Emergency Room. At that time you were treated for an emergent condition, during your visit Laboratory, Radiology and/or other procedures may have been ordered. It is very important that you follow-up with your Primary Care Physician CECIL WOODS within the next 24-48 hours to review your Emergency Room visit and the final results of testing that was ordered. Some test results such as Urine Cultures, Blood Cultures, and other cultures if ordered will not be finalized for 24-48 hours. If you do not have a Primary Care Provider please call the medical records department at [phone] ext [phone] to obtain a copy of your results or you may sign into our patient portal to obtain these results by visiting us @ [email or web address] and completing the following steps: 1. Click on the Patient Portal link 2. Click the Patient Self Enrollment Link to complete the enrollment form and entering your 3. Once the enrollment form is completed you will receive an email with a temporary ID and password at the email address you provided. 4. Next choose a user name and password. Your user name must be at least 4 characters long and your password must be at least 4 characters long. 5. Choose a security question from the list and provide your answer to the question. If you already have signed into the Health Portal you may access your Health Care Information 20/10 by the following steps: 1. Login to our website @ [email or web address] 2. Enter your original user name and password. FAQS The [facility] Health Portal is an online tool that contains your Lab Results, Radiology Reports, Visit History, Discharge Instructions and Health Summary Lab and Radiology Results will not be available for 72 hours on the portal. The Portal is a secure site, passwords are encryted and URLs are re-written so they cannot be copied and pasted. You and authorized family members are the only ones who can access your Portal. Also there is a timeout feature that protects your information if you leave the Portal page open. If you have technical difficulty please use the Contact Us link on the page this will allow you to submit any questions you have regarding the Portal or you may contact the Medical Record Department at [phone] ext [phone].
[2022-06-08 12:17] VITALS: BP 143/74; PULSE 64; O2SAT 96
== END 2022-06-08 12:23 | disposition home or self-care (01) ==
LOC: ED 10:37
DX: R04.0 Epistaxis (principal); D68.32 Hemorrhagic disorder due to extrinsic circulating anticoagulants; T45.515A Adverse effect of anticoagulants, initial encounter; E78.5 Hyperlipidemia, unspecified; I10 Essential (primary) hypertension; Z79.01 Long term (current) use of anticoagulants; Z79.899 Other long term (current) drug therapy
CPT/HCPCS: 99281; 99291

== ENCOUNTER 2023-02-02 10:20 | Emergency (ER) | payer MEDICARE ==
[2023-02-02] MEDS ORDERED: Sodium Chloride 0.9% 1000 ML 1,000 ML IV STA (10:39)
[2023-02-02 10:42] VITALS: TEMP 96.7
[2023-02-02] MEDS ORDERED: Sodium Chloride 0.9% 1000 ML 1,000 ML ONE (10:52)
[2023-02-02 11:15] LABS: Absolute Neutrophil Ct (ANC) 5.19 x10^3/uL (1.4-6.9); BASOPHIL % 0.7 % (0.0-0.4); Basophil (Absolute #) 0.06 x10^3/uL (0-0.4); Eosinophil (Absolute #) 0.16 x10^3/uL (0-0.5); Hemoglobin 14.1 g/dL (12.0-16.0); IMMATURE GRAN # 0.02 x10^3u/L (0.00-0.03); IMMATURE GRAN % 0.2 % (0.00-0.4); Lymphocyte (Absolute #) 2.16 x10^3/uL (1.0-4.6); Lymphocytes % 26.7 % (24.0-44.0); Mean Cell Volume 97.6 fL (78-100); Mean Corpuscular Hemoglobin 31.3 pg (26-32); Mean Platelet Volume 9.9 fL (7.5-11.0); Monocyte (Absolute #) 0.51 x10^3/uL (0.0-1.3); Monocytes % 6.3 % (0.0-12.0); Neutrophil % 64.1 % (36.0-66.0); Platelet Count 224 x10^3/uL (150-450); Red Blood Count 4.51 x10^6/uL (4.1-5.4); Red Cell Distribution Width 13.4 % (11.5-14.0); White Blood Count 8.1 x10^3/uL (4.0-10.5)
[2023-02-02 11:24] LABS: Appearance Clear (Clear); Bacteria None Seen /HPF (None Seen); Bilirubin Negative (Negative); Blood Negative (Negative); Epithelial Cells None Seen /HPF (None Seen); Glucose, Urine Negative (Negative); Hyaline Casts NONE SEEN /LPF (0-2); Ketones Negative (Negative); Leukocyte Esterase Negative (Negative); Nitrite Negative (Negative); Ph 6.5 (4.6-8.0); Protein,Urine Dip Negative (Negative); RBC 0-2 /HPF (0-5); Specific Gravity <=1.005 (1.005-1.030); Urobilinogen 0.2 mg/dL (0.2); WBC 0-2 /HPF (0-5)
[2023-02-02 11:26] LABS: ADD URINE CULTURE? NO (NO)
[2023-02-02 11:30] LABS: ALBUMIN 4.2 g/dL (3.5-5.0); ANION GAP 14.5 MEQ/L (5-15); BILIRUBIN,TOTAL 0.6 mg/dL (0.2-1.3); Calcium 9.2 mg/dL (8.4-10.2); Creatinine 1 0.7 mg/dL (0.52-1.04); EST GLOMERULAR FILTRATION RATE 88.5 ML/MIN; Potassium 4.3 mmol/L (3.5-5.1); Total Protein 7.3 g/dL (6.3-8.2)
[2023-02-02 11:50] LABS: ABO TYPING O; RH TYPING POSITIVE
[2023-02-02 11:51] LABS: Antibody Screen NEGATIVE (NEGATIVE)
--- NOTE | 2023-02-02 12:08 | ERPHSYRPT ---
- History of Present Illness Time Seen by Provider: 02/02/23 10:50 Source: patient, family Exam Limitations: no limitations Patient Subjective Stated Complaint: pt here for rectal bleeding for 4 days now, no nausea or vomiting, no fever Triage Nursing Assessment: pt alert, walked in, resp easy, skin w/d/p. abd soft, Physician History: Patient is a 77-year-old white female who presents with a complaint of rectal bleeding which started 4 days ago. It usually occurs with a bowel movement and sometimes there is bleeding and sometimes there is not. She does have a history of hemorrhoids. She also has a remote colectomy for diverticulitis and she has had some diarrhea recently. Timing/Duration: day(s) (4) Severity: moderate Modifying Factors: Improves With: other (Bowel movements) Associated Symptoms: No abdominal pain Allergies/Adverse Reactions: doxycycline Allergy (Severe, Verified 02/02/23 10:42) kidney problems Penicillins Allergy (Unknown, Verified 02/02/23 10:42) influenza virus vaccine trivalent Allergy (Verified 02/02/23 10:42) Sulfa (Sulfonamide Antibiotics) [Sulfa(Sulfonamide Antibiotics)] Adverse Reaction (Verified 02/02/23 10:42) vomiting, dizziness flu vaccine Allergy (Severe, Uncoded 02/02/23 10:42) Swelling Home Medications: Apixaban [Eliquis 2.5 mg Tablet] 5 mg PO BID 06/08/22 [History] Carvedilol 12.5 mg [Coreg 12.5 mg] 12.5 mg PO BID 06/08/22 [History] Lisinopril 20 mg [Zestril 20 MG] 40 mg PO DAILY 06/08/22 [History] Hx Tetanus, Diphtheria Vaccination/Date Given: Yes Hx Influenza Vaccination/Date Given: No (allergic) Hx Pneumococcal Vaccination/Date Given: Yes Immunizations Up to Date: Yes Travel Risk - International Travel Have you traveled outside of the country in past 3 weeks: No - Coronavirus Screening Are you exhibiting any of the following symptoms?: No Close contact with a COVID-19 positive Pt in past 14-21 Days: No - Vaccine Status Have you recieved a Covid-19 vaccination: Yes 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 - Vaccination Dates Date of 2cond Vaccination (if applicable): 2020 - Review of Systems Constitutional: No Fever, No Chills Eyes: No Symptoms Ears, Nose, & Throat: No Symptoms Respiratory: No Cough, No Dyspnea Cardiac: No Chest Pain, No Edema, No Syncope Abdominal/Gastrointestinal: Hematochezia, No Abdominal Pain, No Nausea, No Vomiting, No Diarrhea Genitourinary Symptoms: No Dysuria Musculoskeletal: No Back Pain, No Neck Pain Skin: No Rash Neurological: No Dizziness, No Focal Weakness, No Sensory Changes Psychological: No Symptoms Endocrine: No Symptoms All Other Systems: Reviewed and Negative - Past Medical History Pertinent Past Medical History: Yes Neurological History: Migraines ENT History: No Pertinent History Cardiac History: High Cholesterol, Hypertension Respiratory History: Asthma Endocrine Medical History: No Pertinent History Musculoskeletal History: No Pertinent History GI Medical History: Diverticulitis, Hemorrhoids History: No Pertinent History Psycho-Social History: No Pertinent History, Depression Female Reproductive Disorders: No Pertinent History, Fibroids - Past Surgical History Past Surgical History: Yes Neuro Surgical History: No Pertinent History Cardiac: No Pertinent History Respiratory: No Pertinent History Gastrointestinal: Cholecystectomy, Colon Resection Genitourinary: No Pertinent History Musculoskeletal: Orthopedic Surgery Female Surgical History: Hysterectomy Other Surgical History: fx rt shoulder 2012 w/ slao placed - Social History Smoking Status: Never smoker Exposure to second hand smoke: No Drug Use: none Patient Lives Alone: No - Nursing Vital Signs Nursing Vital Signs: Initial Vital Signs Temperature 96.7 F 02/02/23 10:41 Pulse Rate 667 H 02/02/23 10:41 Respiratory Rate 18 02/02/23 10:41 Blood Pressure 139/90 02/02/23 10:41 O2 Sat by Pulse Oximetry 98 02/02/23 10:41 Pain Scale Pain Intensity 0 - Physical Exam General Appearance: mild distress, alert Eye Exam: PERRL/EOMI, eyes nml inspection Ears, Nose, Throat Exam: normal ENT inspection, TMs normal, pharynx normal, mo ist mucous membranes Neck Exam: normal inspection, non-tender, supple, full range of motion Respiratory Exam: normal breath sounds, lungs clear, No respiratory distress Cardiovascular Exam: regular rate/rhythm, normal heart sounds, normal peripheral pulses Gastrointestinal/Abdomen Exam: soft, normal bowel sounds, No tenderness, No mass Rectal Exam: hemorrhoids (Multiple external hemorrhoids some sites appear to be possible bleeding sites but no active bleeding noted.), blood Back Exam: normal inspection, normal range of motion, No CVA tenderness, No vertebral tenderness Extremity Exam: normal inspection, normal range of motion, pelvis stable Neurologic Exam: alert, oriented x 3, cooperative, normal mood/affect, nml cerebellar function, nml station & gait, sensation nml, No motor deficits Skin Exam: normal color, warm, dry, No rash Lymphatic Exam: No adenopathy SpO2: 98 - Course Nursing assessment & vital signs reviewed: Yes - CT Exams Abdomen/Pelvis CT Interpretation: Negative, Other (Reviewed by me) Ordered Tests: Active Orders 24 hr Category Date Time Status IV Insertion STAT Care 02/02/23 10:39 Active ABDOMEN AND PELVIS W CONTRAST [CT] Stat Exams 02/02/23 10:39 Completed CBC W DIFF Stat Lab 02/02/23 11:05 Completed CMP Stat Lab 02/02/23 11:05 Completed Lactic Acid Stat Lab 02/02/23 10:39 Completed UA W/RFX UR CULTURE Stat Lab 02/02/23 11:00 Completed Medication Summary Discontinued Medications Generic Name Dose Route Start Last Admin Trade Name [place] PRN Reason Stop Dose Admin Sodium Chloride 1,000 mls @ 999 mls/hr 02/02/23 10:39 02/02/23 10:53 Sodium Chloride 0.9% 1000 Ml IV 02/02/23 11:39 999 mls/hr .Q1H1M STA Administration Sodium Chloride Confirm 02/02/23 10:52 Sodium Chloride 0.9% 1000 Ml Administered 02/02/23 10:53 Dose 1,000 mls @ ud .ROUTE .STK-MED ONE Lab/Rad Data: Laboratory Result Diagrams 02/02/23 11:05 02/02/23 11:05 Laboratory Results 02/02/23 02/02/23 02/02/23 Range/Units 11:05 11:05 11:05 WBC 8.1 (4.0-10.5) x10^3/uL RBC 4.51 (4.1-5.4) x10^6/uL Hgb 14.1 (12.0-16.0) g/dL Hct 44.0 (35-47) % MCV 97.6 (78-100) fL MCH 31.3 (26-32) pg MCHC 32.0 (32-36) g/dL RDW 13.4 (11.5-14.0) % Plt Count 224 (150-450) x10^3/uL MPV 9.9 (7.5-11.0) fL Gran % 64.1 (36.0-66.0) % Immature Gran % (Auto) 0.2 (0.00-0.4) % Nucleat RBC Rel Count 0.0 (0.00-0.1) % Eos # (Auto) 0.16 (0-0.5) x10^3/uL Immature Gran # (Auto) 0.02 (0.00-0.03) x10^3u/L Absolute Lymphs (auto) 2.16 (1.0-4.6) x10^3/uL Absolute Monos (auto) 0.51 (0.0-1.3) x10^3/uL Absolute Nucleated RBC 0.00 (0.00-0.01) x10^3u/L Lymphocytes % 26.7 (24.0-44.0) % Monocytes % 6.3 (0.0-12.0) % Eosinophils % 2.0 (0.00-5.0) % Basophils % 0.7 (0.0-0.4) % Absolute Granulocytes 5.19 (1.4-6.9) x10^3/uL Basophils # 0.06 (0-0.4) x10^3/uL Sodium 139 (137-145) mmol/L Potassium 4.3 (3.5-5.1) mmol/L Chloride 107 (98-107) mmol/L Carbon Dioxide 21 L (22-30) mmol/L Anion Gap 14.5 (5-15) MEQ/L BUN 15 (7-17) mg/dL Creatinine 0.70 (0.52-1.04) mg/dL Estimated GFR 88.5 ML/MIN Glucose 89 (74-106) mg/dL Lactic Acid (0.4-2.0) Calcium 9.2 (8.4-10.2) mg/dL Total Bilirubin 0.60 (0.2-1.3) mg/dL AST 26 (14-36) U/L ALT 27 (0-35) U/L Alkaline Phosphatase 100 (38-126) U/L Serum Total Protein 7.3 (6.3-8.2) g/dL Albumin 4.2 (3.5-5.0) g/dL Urine Color (Yellow) Urine Appearance (Clear) Urine pH (4.6-8.0) Ur Specific [place] (1.005-1.030) Urine Protein (Negative) Urine Glucose (UA) (Negative) mg/dL Urine Ketones (Negative) Urine Blood (Negative) Urine Nitrite (Negative) Urine Bilirubin (Negative) Urine Urobilinogen (0.2) mg/dL Ur Leukocyte Esterase (Negative) U Hyaline Cast (Auto) (0-2) /LPF Urine Microscopic RBC (0-5) /HPF Urine Microscopic WBC (0-5) /HPF Ur Epithelial Cells (None Seen) /HPF Urine Bacteria (None Seen) /HPF Urine Culture Reflexed (NO) ABO Group O Rh Factor POSITIVE Antibody Screen NEGATIVE (NEGATIVE) 02/02/23 02/02/23 Range/Units 11:00 10:39 WBC (4.0-10.5) x10^3/uL RBC (4.1-5.4) x10^6/uL Hgb (12.0-16.0) g/dL Hct (35-47) % MCV (78-100) fL MCH (26-32) pg MCHC (32-36) g/dL RDW (11.5-14.0) % Plt Count (150-450) x10^3/uL MPV (7.5-11.0) fL Gran % (36.0-66.0) % Immature Gran % (Auto) (0.00-0.4) % Nucleat RBC Rel Count (0.00-0.1) % Eos # (Auto) (0-0.5) x10^3/uL Immature Gran # (Auto) (0.00-0.03) x10^3u/L Absolute Lymphs (auto) (1.0-4.6) x10^3/uL Absolute Monos (auto) (0.0-1.3) x10^3/uL Absolute Nucleated RBC (0.00-0.01) x10^3u/L Lymphocytes % (24.0-44.0) % Monocytes % (0.0-12.0) % Eosinophils % (0.00-5.0) % Basophils % (0.0-0.4) % Absolute Granulocytes (1.4-6.9) x10^3/uL Basophils # (0-0.4) x10^3/uL Sodium (137-145) mmol/L Potassium (3.5-5.1) mmol/L Chloride (98-107) mmol/L Carbon Dioxide (22-30) mmol/L Anion Gap (5-15) MEQ/L BUN (7-17) mg/dL Creatinine (0.52-1.04) mg/dL Estimated GFR ML/MIN Glucose (74-106) mg/dL Lactic Acid 1.1 (0.4-2.0) Calcium (8.4-10.2) mg/dL Total Bilirubin (0.2-1.3) mg/dL AST (14-36) U/L ALT (0-35) U/L Alkaline Phosphatase (38-126) U/L Serum Total Protein (6.3-8.2) g/dL Albumin (3.5-5.0) g/dL Urine Color Yellow (Yellow) Urine Appearance Clear (Clear) Urine pH 6.5 (4.6-8.0) Ur Specific [place] <=1.005 (1.005-1.030) Urine Protein Negative (Negative) Urine Glucose (UA) Negative (Negative) mg/dL Urine Ketones Negative (Negative) Urine Blood Negative (Negative) Urine Nitrite Negative (Negative) Urine Bilirubin Negative (Negative) Urine Urobilinogen 0.2 (0.2) mg/dL Ur Leukocyte Esterase Negative (Negative) U Hyaline Cast (Auto) NONE SEEN (0-2) /LPF Urine Microscopic RBC 0-2 (0-5) /HPF Urine Microscopic WBC 0-2 (0-5) /HPF Ur Epithelial Cells None Seen (None Seen) /HPF Urine Bacteria None Seen (None Seen) /HPF Urine Culture Reflexed NO (NO) ABO Group Rh Factor Antibody Screen (NEGATIVE) - Progress Progress: unchanged Progress Note: 02/02/23 12:33 We discussed the situation with the patient she is most anxious to have these hemorrhoids taken care of surgically by hopefully Dr. Murphy here at [facility]. Dr. Murphy was the person who did her resection of her diverticulitis in the past. Medical Desision Making - Independent Historian Additional History obtained from: Spouse - Diagnostic Testing Diagnostic test were ordered, analyzed, and reviewed by me: Yes Radiological Interpretation: Reviewed by me - Risk of complications The pt has a mod risk of morbidity or mortality based on: Need for prescription drug management, Need for minor surgical intervention in patient with know risk factors - Departure Departure Disposition: Home Clinical Impression: Bleeding hemorrhoids Condition: Stable Critical Care Time: No Referrals: YANIRA FLORES MD [Primary Care Provider] - Follow up/PCP as directed Additional Instructions: Nursing staff currently working at the time of dictation on an appointment with [facility] for this patient. Prescriptions: Hydrocortisone 2.5% 30 gm [Anusol-Hc 2.5% Cream 30 gm] 30 gm TP TID 7 Days #30 tu
--- NOTE | 2023-02-02 12:10 | XRAY ---
Indication: Rectal bleeding 3 weeks. Multiple contiguous axial images obtained through the abdomen and pelvis using 80 cc Isovue 370 contrast. Comparison: September 16, 2021 Lung bases again demonstrate minimal fibrosis/scarring. Heart not enlarged. Noncontrasted stomach and bowel loops appear nonobstructed. Appendix not seen. Again scattered colonic diverticulosis without diverticulitis, intact sigmoid anastomosis, hysterectomy, and cholecystectomy. Both kidneys enhance and excrete with stable small left renal cyst. No free fluid/air. Remaining liver, pancreas, spleen, adrenal glands, kidneys, ureters, and bladder are unremarkable. Stable mild aortoiliac calcifications. No AAA or pathologic retroperitoneal lymphadenopathy. Osseous structures intact again with osteopenia and minimal degenerative changes throughout the spine. Impression: Stable colonic diverticulosis, left renal cyst, arteriosclerotic disease, chronic bony findings. No new/acute abnormalities.
[2023-02-02 12:44] VITALS: PULSE 60; O2SAT 97
[2023-02-02 12:47] VITALS: BP 175/87; RESP 16
== END 2023-02-02 12:57 | disposition home or self-care (01) ==
LOC: ED 10:20
DX: K64.4 Residual hemorrhoidal skin tags (principal); K62.5 Hemorrhage of anus and rectum; E78.5 Hyperlipidemia, unspecified; I10 Essential (primary) hypertension; Z79.01 Long term (current) use of anticoagulants; Z79.899 Other long term (current) drug therapy
CPT/HCPCS: 36000; 36415; 74177; 80053; 81001; 83605; 85025; 86850; 86900; 86901; 99284

== ENCOUNTER 2023-03-02 09:00 | Day surgery (SDC) | payer MEDICARE ==
--- NOTE | 2023-03-02 08:03 | HP ---
DATE OF SURGERY: 03/02/2023 HISTORY OF PRESENT ILLNESS: The patient is a 77-year-old had some bright red blood per rectum twice in a week. No pain. According to the patient on blood thinners. History of transient ischemic attack, atrial fibrillation. Last colonoscopy a while ago. PAST MEDICAL HISTORY: Hypertension, lung disease and some nodules. She had some mitral regurgitation and asthma in the past. Diverticular disease in the past. Colon polyps in the past. PAST SURGICAL HISTORY: Endoscopy. Hysterectomy. Cholecystectomy. Hemicolectomy. Hernia repair in the past. MEDICATIONS: Metronidazole, lisinopril, gabapentin, carvedilol, apixaban, alprazolam. ALLERGIES: DOXYCYCLINE. PENICILLIN. SULFA. FLU VACCINE. FAMILY HISTORY: Negative in regards to this problem. SOCIAL HISTORY: No smoking or alcohol abuse. REVIEW OF SYSTEMS: Twelve systems reviewed per admission assessment. No chest pain or palpitations. Other systems negative or noncontributory as above and per preadmission questionnaire. PHYSICAL EXAMINATION: Height 5'4". BMI 24.7. GENERAL: No acute distress. HEENT: Sclerae nonicteric. EOMI. Oral mucous membranes moist. NECK: No JVD. CHEST: Equal excursion, nonlabored breathing. CVS: Regular rate and rhythm. ABDOMEN: Soft. EXTREMITIES: No significant edema. NEURO: Alert, oriented, moving extremities symmetrically. RECTAL: Deferred timed to endoscopy exam. PSYCH: Appropriate mood and affect. SKIN: Dry. IMPRESSION: Rectal bleeding, on Eliquis. History of transient ischemic attack. Question whether she was having some prolapsing hemorrhoids as well. 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 General risk of bleeding or infection, risk of bowel injury or perforation possibly requiring open procedure, risk of missed or nondiagnosis or incomplete exam possibly requiring barium enema, other studies or procedures, general risk of anesthesia or sedation, risk of bowel prep but not limited to, consent obtained. If hemorrhoid banding is accomplished and there is progression of hemorrhoid disease with aches and bleeding possibly requiring other repair. General risk of infection, risk of aches and pains or sphincter spasm or irritability but not limited to. Hold blood thinners preoperatively, otherwise continue medication for asthma, hypertension and chronic obstructive pulmonary disease. Otherwise set her up for outpatient under MAC anesthesia colonoscopy with possible internal hemorrhoid banding.
[2023-03-02] MEDS ORDERED: Lactated Ringers 1,000 ML IV ONE (09:12)
[2023-03-02] MEDS ORDERED: Zofran 4 MG/2 ML VIAL IV STA (09:22)
[2023-03-02] MEDS ORDERED: Lactated Ringers 1,000 ML IV SCH (09:30)
[2023-03-02] MEDS ORDERED: DIPRIVAN 200 MG/20 ML IV ONE (11:35)
[2023-03-02] MEDS ORDERED: MORPHINE SULFATE 2 MG INJ ONE (12:22)
[2023-03-02 13:00] VITALS: RESP 18; TEMP 97
[2023-03-02 13:22] VITALS: BP 180/87; PULSE 65; O2SAT 96
--- NOTE | 2023-03-02 14:52 | OP ---
SURGERY DATE/TIME: 03/02/2023 1140 PREOPERATIVE DIAGNOSIS: History of rectal bleeding. POSTOPERATIVE DIAGNOSES: 1) ASA Class II. 2) Withdrawal time approximately ten minutes. 3) Polyps. 4) Diverticulosis. 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 PROCEDURES: 1) Colonoscopy to cecum. 2) Hot snare polypectomy ascending colon polyp. 3) Hot biopsy polypectomy cecal polyps x2. 4) Hot biopsy polypectomy descending colon polyp x1. 5) Exam under anesthesia with internal hemorrhoid banding x3 columns. SURGEON: Dr. Jay Hays. ANESTHESIA: MAC. ESTIMATED BLOOD LOSS: Minimal. INDICATIONS: As noted above. Risks and benefits explained in detail but not limited to and consent obtained. DESCRIPTION OF PROCEDURE AND FINDINGS: The patient is taken to the endoscopy room. MAC anesthesia induced. After official time out and no disagreement with planned procedure, digital rectal exam did not reveal any rectal masses. He did have some internal and external hemorrhoids. Video colonoscope inserted and passed up through her prior anastomotic site. The descending, transverse and ascending colon around to the cecum. Appendiceal orifice and valve well visualized and photo documented. Two small early polyps from the cecum were removed with hot biopsy polypectomy. Good hemostasis noted. The scope is carefully withdrawn. Another small polyp from distal ascending colon was removed with hot snare polypectomy about 3 mm in size. Good hemostasis noted. She did have some diverticulosis throughout the colon. The scope pulled back to descending colon. Small 2 mm polyp removed with hot biopsy polypectomy. Good hemostasis noted. The scope pulled through the anastomotic site which was fine through the rectum. She had internal hemorrhoids. The scope is withdrawn. Half-gutierrez [id number] carefully inserted. It was felt given her need for chcf anticoagulation issues with Eliquis, it was felt worthwhile doing hemorrhoid banding and this was accomplished with good tuft of tissue of the left lateral internal hemorrhoid, repeated in the right posterior position and a third band placed in the right anterior position with good tuft of tissue in all three locations. The patient tolerated the procedure well. There were no immediate complications. I will see if she has family to discuss the findings with.
== END 2023-03-02 13:30 | disposition home or self-care (01) ==
LOC: SDC 09:00
PROVIDERS: ATTEND Surgery
DX: Z87.19 Personal history of other diseases of the digestive system (principal); K57.30 Diverticulosis of large intestine without perforation or abscess without bleeding; D12.2 Benign neoplasm of ascending colon; D12.0 Benign neoplasm of cecum; D12.4 Benign neoplasm of descending colon; K64.1 Second degree hemorrhoids; K64.8 Other hemorrhoids
CPT/HCPCS: 99100; J2270; J2405; J2704

== ENCOUNTER 2023-06-15 08:50 | Emergency (ER) | payer MEDICARE ==
[2023-06-15 09:03] VITALS: TEMP 96.5; O2SAT 99
[2023-06-15] MEDS ORDERED: NORCO 10-325 MG ONE ×2 (09:11→09:12)
[2023-06-15] MEDS: NORCO 10-325 MG PO ONE (09:12)
--- NOTE | 2023-06-15 09:30 | ERPHSYRPT ---
- History of Present Illness Time Seen by Provider: 06/15/23 08:57 Source: patient Exam Limitations: no limitations Patient Subjective Stated Complaint: pt was working in the garden yesterday and she bent over and heard something "pop", she thinks she may have broken a rib on her right side Triage Nursing Assessment: Pt was brought to the ER by her , hypertensive, rates pain as 6/10, pain with a deep breath, pain with palpatation, pulses normal, skin n/w/d, walked into the ER with a stable gait, denies any other injuries Physician History: Patient here with right anterior rib pain. Patient had injury while gardening yesterday. States that she was bending over she felt a pop in her right ribs. Has had pain since then. No shortness of breath, other falls or trauma. She did not hit her head. Has tried [id number] pain medication that has helped somewhat. Allergies/Adverse Reactions: doxycycline Allergy (Severe, Verified 06/15/23 09:03) kidney problems Penicillins Allergy (Unknown, Verified 06/15/23 09:03) influenza virus vaccine trivalent Allergy (Verified 06/15/23 09:03) Sulfa (Sulfonamide Antibiotics) [Sulfa(Sulfonamide Antibiotics)] Adverse Reaction (Verified 06/15/23 09:03) vomiting, dizziness flu vaccine Allergy (Severe, Uncoded 06/15/23 09:03) Swelling Home Medications: Apixaban [Eliquis 2.5 mg Tablet] 5 mg PO BID 06/08/22 [History] Carvedilol 12.5 mg [Coreg 12.5 mg] 12.5 mg PO BID 06/08/22 [History] Lisinopril 20 mg [Zestril 20 MG] 40 mg PO DAILY 06/08/22 [History] Budesonide/Formoterol Fumarate [Symbicort 160-4.5 Mcg Inhaler] 2 inh PO BID 06/15/23 [History] Hx Tetanus, Diphtheria Vaccination/Date Given: Yes Hx Influenza Vaccination/Date Given: No (allergic) Hx Pneumococcal Vaccination/Date Given: Yes Travel Risk - International Travel Have you traveled outside of the country in past 3 weeks: No - Coronavirus Screening Are you exhibiting any of the following symptoms?: No Close contact with a COVID-19 positive Pt in past 14-21 Days: No - Vaccine Status Have you recieved a Covid-19 vaccination: Yes Admissions Dean: Moderna - Vaccination Dates Date of 2cond Vaccination (if applicable): 2020 - Past Medical History Pertinent Past Medical History: Yes Neurological History: Migraines ENT History: No Pertinent History Cardiac History: High Cholesterol, Hypertension Respiratory History: Asthma Endocrine Medical History: No Pertinent History Musculoskeletal History: No Pertinent History GI Medical History: Diverticulitis, Hemorrhoids History: No Pertinent History Psycho-Social History: No Pertinent History, Depression Female Reproductive Disorders: No Pertinent History, Fibroids - Past Surgical History Past Surgical History: Yes Neuro Surgical History: No Pertinent History Cardiac: No Pertinent History Respiratory: No Pertinent History Gastrointestinal: Cholecystectomy, Colon Resection Genitourinary: No Pertinent History Musculoskeletal: Orthopedic Surgery Female Surgical History: Hysterectomy Other Surgical History: fx rt shoulder 2012 w/ salo placed - Social History Smoking Status: Never smoker Exposure to second hand smoke: No Drug Use: none Patient Lives Alone: No - Nursing Vital Signs Nursing Vital Signs: Initial Vital Signs Temperature 96.5 F 06/15/23 08:57 Pulse Rate 58 L 06/15/23 08:57 Blood Pressure 154/77 06/15/23 08:57 O2 Sat by Pulse Oximetry 99 06/15/23 08:57 Pain Scale Pain Intensity 4 - Physical Exam SpO2 Interpretation: normal SpO2: 99 Comments: 06/15/23 09:30 Review of Systems Constitutional: Negative for fever. HENT: Negative for congestion. Respiratory: Negative for shortness of breath. Cardiovascular: Negative for chest pain. Gastrointestinal: Negative for abdominal pain. Genitourinary: Negative for dysuria. Musculoskeletal: Negative for back pain. Skin: Negative for rash. Neurological: Negative for headaches. Psychiatric/Behavioral: Negative for behavioral problems. All other systems reviewed and are negative. Physical Exam Vitals signs and nursing note reviewed. Constitutional: Appearance: Patient is well-developed. HENT: Head: Normocephalic and atraumatic. Eyes: Conjunctiva/sclera: Conjunctivae normal. Neck: Musculoskeletal: Normal range of motion. Trachea: No tracheal deviation. Cardiovascular: Rate and Rhythm: Normal rate. Pulmonary: Effort: Pulmonary effort is normal. No respiratory distress. Abdominal: Palpations: Abdomen is soft. Musculoskeletal: General: Right rib tenderness palpation. No obvious deformity, sensation intact, 2+ capillary refill, 2 point tactile discrimination intact. 5 out of 5 strength. Full range of motion without pain. Compartments are soft, nontender. Overlying skin shows no tenting, bruising, ecchymosis. Skin: General: Skin is warm and dry. Neurological/ Psychiatric: Mental Status: Mental status, behavior, interaction with environment is appropriate for patient's age and condition - Course Nursing assessment & vital signs reviewed: Yes Ordered Tests: Active Orders 24 hr Category Date Time Status CHEST 2 VIEWS (PA AND LAT) Stat Exams 06/15/23 09:07 Completed Medication Summary Discontinued Medications Generic Name Dose Route Start Last Admin Trade Name Mingo PRN Reason Stop Dose Admin Hydrocodone Bitart/Acetaminophen 1 tablet 06/15/23 09:08 06/15/23 09:12 Hydrocodone/Acetamin 10-325 Mg Tablet PO 06/15/23 09:09 1 tablet ONCE ONE Administration Hydrocodone Bitart/Acetaminophen Confirm 06/15/23 09:11 Hydrocodone/Acetamin 10-325 Mg Tablet Administered 06/15/23 09:12 Dose 1 tablet .ROUTE .STK-MED ONE Hydrocodone Bitart/Acetaminophen Confirm 06/15/23 09:12 Hydrocodone/Acetamin 10-325 Mg Tablet Administered 06/15/23 09:13 Dose 1 tablet .ROUTE .STK-MED ONE - Progress Progress: improved Progress Note: 06/15/23 09:30 Plan for chest x-ray. Most likely musculoskeletal based on reproducibility and story. Extremely low suspicion for ACS or STEMI. Oral Galt for pain 06/15/23 10:03 X-ray shows no obvious rib fracture, pneumonia. Patient does have some atelectasis in the right rib area. Most likely from her injury. I did discuss the importance of using incentive spirometer at home, developing secondary pneumonia, adequate pain control. Patient's pain is much improved here with Galt. Plan for continued analgesics going home patient states understanding will follow-up as described with PCP. Counseled pt/family regarding: diagnosis, need for follow-up, rad results - Departure Departure Disposition: Home Clinical Impression: Atelectasis of right lung Condition: Stable Critical Care Time: No Referrals: YANIRA FLORES MD [Primary Care Provider] - Follow up/PCP as directed Instructions: Bruised Rib
--- NOTE | 2023-06-15 09:46 | XRAY ---
Indication: Right rib pain. Comparison: July 05, 2020 PA/lateral chest again demonstrates COPD. New mild right infrahilar discoid atelectasis/scarring. Remaining heart and lungs unremarkable. Bony thorax intact again with osteopenia, mild degenerative changes, and incompletely visualized old right humerus fracture. Impression: New right infrahilar atelectasis/scarring. Stable COPD. No acute cardiopulmonary abnormalities.
[2023-06-15 09:56] VITALS: BP 150/89; PULSE 56
== END 2023-06-15 10:03 | disposition home or self-care (01) ==
LOC: ED 08:50
DX: J98.11 Atelectasis (principal); R07.81 Pleurodynia; E78.5 Hyperlipidemia, unspecified; I10 Essential (primary) hypertension; Z79.01 Long term (current) use of anticoagulants; Z79.899 Other long term (current) drug therapy
CPT/HCPCS: 71046; 99282; A9270-GY

== ENCOUNTER 2024-01-13 14:50 | Emergency (ER) | payer MEDICARE, SELFPAY ==
[2024-01-13 15:02] VITALS: TEMP 97.4
--- NOTE | 2024-01-13 15:20 | ERPHSYRPT ---
- History of Present Illness Time Seen by Provider: 01/13/24 14:55 Source: patient Exam Limitations: no limitations Patient Subjective Stated Complaint: C/O SOB that started last night Triage Nursing Assessment: Patient ambulated back to ER without difficulties. She has a dry cough noted during assessment; reports it as productive at home with green sputum. Afebrile. No edema. SMITH WNL. Patient does not appear SOB at this time. States is SOB with exertion. Physician History: 78-year-old female with history of asthma, hypertension presented in the ER with shortness of breath since yesterday. Patient reports she had nausea vomiting diarrhea 5 days ago which lasted for 2 days and then started to have some nasal/sinus congestion and gradually went down in the lungs. Patient reports coughing up yellow-green sputum moderate in amount and having increased shortness of breath since last night. Patient reports gets tired with minimal activity. Because of repeated coughing having pain in the right lower chest wal l. Subjective feeling of fever and chills. She has taken 3 breathing treatments at home with no significant relief. Allergies/Adverse Reactions: doxycycline Allergy (Severe, Verified 01/13/24 14:51) kidney problems Penicillins Allergy (Unknown, Verified 01/13/24 14:51) influenza virus vaccine trivalent Allergy (Verified 01/13/24 14:51) Sulfa (Sulfonamide Antibiotics) [Sulfa(Sulfonamide Antibiotics)] Adverse Reaction (Verified 01/13/24 14:51) vomiting, dizziness flu vaccine Allergy (Severe, Uncoded 01/13/24 14:51) Swelling Home Medications: Apixaban [Eliquis 2.5 mg Tablet] 5 mg PO BID 06/08/22 [History] Lisinopril 20 mg [Zestril 20 MG] 40 mg PO DAILY 06/08/22 [History] Budesonide/Formoterol Fumarate [Symbicort 160-4.5 Mcg Inhaler] 2 inh PO BID 06/15/23 [History] ALPRAZolam 0.25 MG [xanAX 0.25 MG] 0.25 mg PO HS PRN 01/13/24 [History] Albuterol 2.5 mg/3 ml Neb [Proventil 2.5 mg/3 ml Neb] 1 vial NEB Q6H PRN PRN 01/13/24 [History] Albuterol 8 gm Mdi Hfa [Ventolin Hfa MDI] 2 puff PO Q6H PRN PRN 01/13/24 [History] Carvedilol [Coreg ] 6.25 mg PO BID 01/13/24 [History] Ezetimibe 10 mg [Zetia 10 MG] 10 mg PO DAILY 01/13/24 [History] Nitroglycerin 0.4 mg Tablet [Nitrostat 0.4 MG Tablet] 0.4 mg PO Q5MIN PRN MR X 3 PRN 01/13/24 [History] Hx Tetanus, Diphtheria Vaccination/Date Given: Yes Hx Influenza Vaccination/Date Given: No (allergic) Hx Pneumococcal Vaccination/Date Given: Yes Immunizations Up to Date: Yes Travel Risk - International Travel Have you traveled outside of the country in past 3 weeks: No - Emerging Infectious Disease Are you exhibiting symptoms associated with any current EIDs: Yes Symptoms: Cough: New Onset, Shortness of Breath - Review of Systems Constitutional: Fever, Fatigue Eyes: No Symptoms Ears, Nose, & Throat: Nose Congestion Respiratory: Cough, Dyspnea, Dyspnea on Exertion (WHITE), Wheezing Cardiac: Chest Pain Abdominal/Gastrointestinal: No Symptoms Genitourinary Symptoms: No Symptoms Musculoskeletal: Arthralgias Skin: No Symptoms Neurological: No Symptoms Endocrine: No Symptoms Hematologic/Lymphatic: No Symptoms Immunological/Allergic: No Symptoms - Past Medical History Pertinent Past Medical History: Yes Neurological History: Migraines ENT History: No Pertinent History Cardiac History: High Cholesterol, Hypertension Respiratory History: Asthma Endocrine Medical History: No Pertinent History Musculoskeletal History: No Pertinent History GI Medical History: Diverticulitis, Hemorrhoids History: No Pertinent History Psycho-Social History: Anxiety, Depression Female Reproductive Disorders: Fibroids - Past Surgical History Past Surgical History: Yes Neuro Surgical History: No Pertinent History Cardiac: No Pertinent History Respiratory: No Pertinent History Gastrointestinal: Cholecystectomy, Colon Resection Genitourinary: No Pertinent History Musculoskeletal: Orthopedic Surgery Female Surgical History: Hysterectomy Other Surgical History: fx rt shoulder 2011 w/ salo placed - Social History Smoking Status: Never smoker Exposure to second hand smoke: No Drug Use: none Patient Lives Alone: No - Social Determinants of Health Will the patient participate in the screening: Yes Do you worry about a steady place to live?: No Do you have any problems with any of the following?: No known problems In the past 12 months,have you had to go without utilities?: No Transportation Issues: No Has anyone in your support network made you feel unsafe?: No Have you or anyone in your house had to go without enough: No - Nursing Vital Signs Nursing Vital Signs: Initial Vital Signs Temperature 97.4 F 01/13/24 14:53 Pulse Rate 68 01/13/24 14:53 Respiratory Rate 20 01/13/24 14:53 Blood Pressure 120/64 01/13/24 14:53 O2 Sat by Pulse Oximetry 93 L 01/13/24 14:53 Pain Scale Pain Intensity 4 - Physical Exam General Appearance: no apparent distress, alert Eye Exam: PERRL/EOMI Ears, Nose, Throat Exam: hearing grossly normal, pharyngeal erythema Neck Exam: normal inspection, non-tender, supple, full range of motion Respiratory Exam: normal breath sounds, lungs clear Cardiovascular/Chest Exam: normal heart sounds, regular rate/rhythm Abdominal/Gastrointestinal Exam: soft, normal bowel sounds, No tenderness Extremity Exam: non-tender, normal range of motion Neurologic Exam: alert, oriented x 3, cooperative Skin Exam: normal color SpO2 Interpretation: normal SpO2: 93 O2 Delivery: Room Air - Course EKG Interpreted by Me: RATE (63), Sinus Rhythm, NORMAL AXIS, NORMAL INTERVALS, NORMAL QRS Ordered Tests: Active Orders 24 hr Category Date Time Status [employer] Guide STAT Care 01/13/24 15:18 Active EKG-ER Only STAT Care 01/13/24 15:17 Active IV Insertion STAT Care 01/13/24 15:17 Active CHEST 1 VIEW (PORTABLE) Stat Exams 01/13/24 15:18 Completed BLOOD CULTURE Stat Lab 01/13/24 15:41 Received CBC W DIFF Stat Lab 01/13/24 15:35 Completed CMP Stat Lab 01/13/24 15:35 Completed Lactic Acid Stat Lab 01/13/24 15:36 Completed MAGNESIUM Stat Lab 01/13/24 15:35 Completed NT PRO BNPII Stat Lab 01/13/24 15:35 Completed TROPONIN Q4H Lab 01/13/24 15:35 Completed TROPONIN Q4H Lab 01/13/24 19:30 Ordered TROPONIN Q4H Lab 01/13/24 23:30 Ordered Respiratory Therapy Assessment DAILY RT 01/13/24 15:30 Active Medication Summary Discontinued Medications Generic Name Dose Route Start Last Admin Trade Name Mingo PRN Reason Stop Dose Admin Albuterol/Ipratropium 3 ml 01/13/24 15:17 01/13/24 15:26 Ipratropium/Albuterol Sulfate 3 Ml Ampul.Neb IH 01/13/24 15:18 3 ml STAT ONE Administration Albuterol/Ipratropium Confirm 01/13/24 15:26 Ipratropium/Albuterol Sulfate 3 Ml Ampul.Neb Administered 01/13/24 15:27 Dose 3 ml IH .STK-MED ONE Lab/Rad Data: Laboratory Result Diagrams 01/13/24 15:35 01/13/24 15:35 Laboratory Results 01/13/24 01/13/24 01/13/24 Range/Units 15:36 15:35 15:35 WBC (3.98-10.04) x10^3/uL RBC (3.93-5.22) x10^6/uL Hgb (11.2-15.7) g/dL Hct (34.1-44.9) % MCV (79.4-94.8) fL MCH (25.6-32.2) pg MCHC (32.2-35.5) g/dL RDW (11.7-14.4) % Plt Count (182-369) x10^3/uL MPV (9.4-12.3) fL Gran % (34.0-71.1) % Immature Gran % (Auto) (0.001-0.429) % Nucleat RBC Rel Count (0.00-0.2) % Eos # (Auto) (0.04-0.36) x10^3/uL Immature Gran # (Auto) (0.001-0.031) x10^3u/L Absolute Lymphs (auto) (1.18-3.74) x10^3/uL Absolute Monos (auto) (0.24-0.86) x10^3/uL Absolute Nucleated RBC (0.00-0.012) x10^3u/L Lymphocytes % (19.3-51.7) % Monocytes % (4.7-12.5) % Eosinophils % (0.7-5.8) % Basophils % (0.1-1.2) % Absolute Granulocytes (1.56-6.13) x10^3/uL Basophils # (0.01-0.08) x10^3/uL Sodium (135-145) mmol/L Potassium (3.5-5.1) mmol/L Chloride (98-107) mmol/L Carbon Dioxide (22-30) mmol/L Anion Gap (5-15) MEQ/L BUN (7-17) mg/dL Creatinine (0.52-1.04) mg/dL Estimated GFR ML/MIN Glucose (74-106) mg/dL Lactic Acid 1.4 (0.4-2.0) Calcium (8.4-10.2) mg/dL Magnesium (1.6-2.3) mg/dL Total Bilirubin (0.2-1.3) mg/dL AST (14-36) U/L ALT (0-35) U/L Alkaline Phosphatase (38-126) U/L Troponin I < 0.012 (0.000-0.033) ng/mL NT-Pro-B Natriuret Pep 212 (<300) pg/mL Serum Total Protein (6.3-8.2) g/dL Albumin (3.5-5.0) g/dL Influenza Type A Ag NEGATIVE (NEGATIVE) Influenza Type B Ag NEGATIVE (NEGATIVE) RSV (PCR) NEGATIVE (NEGATIVE) SARS-CoV-2 (PCR) NEGATIVE (NEGATIVE) 01/13/24 01/13/24 Range/Units 15:35 15:35 WBC 7.7 (3.98-10.04) x10^3/uL RBC 4.53 (3.93-5.22) x10^6/uL Hgb 14.0 (11.2-15.7) g/dL Hct 42.1 (34.1-44.9) % MCV 92.9 (79.4-94.8) fL MCH 30.9 (25.6-32.2) pg MCHC 33.3 (32.2-35.5) g/dL RDW 13.4 (11.7-14.4) % Plt Count 195 (182-369) x10^3/uL MPV 9.8 (9.4-12.3) fL Gran % 82.9 H (34.0-71.1) % Immature Gran % (Auto) 0.3 (0.001-0.429) % Nucleat RBC Rel Count 0.0 (0.00-0.2) % Eos # (Auto) 0.02 L (0.04-0.36) x10^3/uL Immature Gran # (Auto) 0.02 (0.001-0.031) x10^3u/L Absolute Lymphs (auto) 1.00 L (1.18-3.74) x10^3/uL Absolute Monos (auto) 0.25 (0.24-0.86) x10^3/uL Absolute Nucleated RBC 0.00 (0.00-0.012) x10^3u/L Lymphocytes % 13.0 L (19.3-51.7) % Monocytes % 3.2 L (4.7-12.5) % Eosinophils % 0.3 L (0.7-5.8) % Basophils % 0.3 (0.1-1.2) % Absolute Granulocytes 6.39 H (1.56-6.13) x10^3/uL Basophils # 0.02 (0.01-0.08) x10^3/uL Sodium 141 (135-145) mmol/L Potassium 3.8 (3.5-5.1) mmol/L Chloride 108 H (98-107) mmol/L Carbon Dioxide 22 (22-30) mmol/L Anion Gap 14.5 (5-15) MEQ/L BUN 15 (7-17) mg/dL Creatinine 0.91 (0.52-1.04) mg/dL Estimated GFR 64.2 ML/MIN Glucose 128 H (74-106) mg/dL Lactic Acid (0.4-2.0) Calcium 9.4 (8.4-10.2) mg/dL Magnesium 1.7 (1.6-2.3) mg/dL Total Bilirubin 0.50 (0.2-1.3) mg/dL AST 32 (14-36) U/L ALT 28 (0-35) U/L Alkaline Phosphatase 101 (38-126) U/L Troponin I (0.000-0.033) ng/mL NT-Pro-B Natriuret Pep (<300) pg/mL Serum Total Protein 6.6 (6.3-8.2) g/dL Albumin 4.1 (3.5-5.0) g/dL Influenza Type A Ag (NEGATIVE) Influenza Type B Ag (NEGATIVE) RSV (PCR) (NEGATIVE) SARS-CoV-2 (PCR) (NEGATIVE) - Progress Progress: improved, re-examined Air Movement: good Progress Note: 01/13/24 17:03 78-year-old is evaluated in the ER for worsening cough/difficulty breathing. Patient symptoms started as upper respiratory and now having cough. She is given breathing treatment. Patient already have leftover steroids prior to arrival. She is feeling much better on reevaluation. She is on room air around 94%. No tachypnea or tachycardia. EKG is sinus rhythm with no acute ischemic changes. Negative troponins. Normal lactate. Normal white count and chemistries fairly unremarkable. Chest x-ray is negative for any acute cardiopulmonary findings. Negative COVID flu and RSV. Patient's symptoms are more of a infectious etiology possibly viral with some element of asthma exacerbation. Patient is anticoagulated on Eliquis. I would treat her with steroids and DuoNeb and outpatient follow-up. Discussed signs symptoms of worsening needing return to ER which she seems understanding. Stable for discha rge. Blood Culture(s) Obtained: Yes Antibiotics given: No Counseled pt/family regarding: lab results, diagnosis, need for follow-up, rad results Medical Desision Making - Independent Historian Additional History obtained from: Spouse - Diagnostic Testing Diagnostic test were ordered, analyzed, and reviewed by me: Yes Radiological Interpretation: Reviewed by me - Risk of complications The pt has a mod risk of morbidity or mortality based on: Need for prescription drug management - Departure Departure Disposition: Home Clinical Impression: Acute viral bronchitis, Asthma exacerbation Condition: Stable Critical Care Time: No Referrals: YANIRA FLORES MD [Primary Care Provider] - Follow up with PCP 1 day Instructions: Asthma, Adult (DC) Additional Instructions: Follow-up with primary care for reevaluation. Return to ER for worsening cough difficulty breathing or if develop fever chills etc. Prescriptions: Prednisone 20 mg [Deltasone 20 mg] 40 mg PO DAILY 5 Days #10 tablet Albuterol/Ipratropium 3ml Neb* [DUONEB 0.5-3 MG/3 ml Neb] 3 ml IH Q4-6HPRN PRN 7 Days #30 amp PRN Reason: Shortness Of Breath/Wheezing
[2024-01-13] MEDS: DUONEB 0.5-3 MG/3 ml Neb IH ONE (15:26)
[2024-01-13] MEDS ORDERED: DUONEB 0.5-3 MG/3 ml Neb IH ONE (15:26)
[2024-01-13 15:47] LABS: Absolute Neutrophil Ct (ANC) 6.39 x10^3/uL (1.56-6.13); BASOPHIL % 0.3 % (0.1-1.2); Basophil (Absolute #) 0.02 x10^3/uL (0.01-0.08); Eosinophil % 0.3 % (0.7-5.8); Eosinophil (Absolute #) 0.02 x10^3/uL (0.04-0.36); Hematocrit 42.1 % (34.1-44.9); IMMATURE GRAN # 0.02 x10^3u/L (0.001-0.031); IMMATURE GRAN % 0.3 % (0.001-0.429); Mean Cell Volume 92.9 fL (79.4-94.8); Mean Corpuscular Hemoglobin 30.9 pg (25.6-32.2); Mean Corpuscular Hgb Concent. 33.3 g/dL (32.2-35.5); Mean Platelet Volume 9.8 fL (9.4-12.3); Monocyte (Absolute #) 0.25 x10^3/uL (0.24-0.86); Monocytes % 3.2 % (4.7-12.5); Neutrophil % 82.9 % (34.0-71.1); Platelet Count 195 x10^3/uL (182-369); Red Blood Count 4.53 x10^6/uL (3.93-5.22); Red Cell Distribution Width 13.4 % (11.7-14.4); White Blood Count 7.7 x10^3/uL (3.98-10.04)
[2024-01-13 16:00] LABS: ALBUMIN 4.1 g/dL (3.5-5.0); ANION GAP 14.5 MEQ/L (5-15); BILIRUBIN,TOTAL 0.5 mg/dL (0.2-1.3); Calcium 9.4 mg/dL (8.4-10.2); Creatinine 1 0.91 mg/dL (0.52-1.04); EST GLOMERULAR FILTRATION RATE 64.2 ML/MIN; MAGNESIUM 1.7 mg/dL (1.6-2.3); Potassium 3.8 mmol/L (3.5-5.1); Total Protein 6.6 g/dL (6.3-8.2)
[2024-01-13 16:12] LABS: NT PRO BNPII 212 pg/mL (<300); TROPONIN < 0.012 ng/mL (0.000-0.033)
[2024-01-13 16:24] LABS: INFLUENZA A NEGATIVE (NEGATIVE); INFLUENZA B NEGATIVE (NEGATIVE); RESPIRATORY SYNCTIAL VIRUS NEGATIVE (NEGATIVE); SARS-CoV-2 Xpert Express NEGATIVE (NEGATIVE)
--- NOTE | 2024-01-13 16:29 | XRAY ---
Indication: Short of breath. Comparison: June 15, 2023 Portable chest is now clear again with COPD. Heart not enlarged. Bony thorax intact again with osteopenia, mild degenerative changes, and incompletely visualized old right humerus fracture. Impression: Nonacute chest with chronic features.
[2024-01-13 17:37] VITALS: BP 134/72; PULSE 60; RESP 20; O2SAT 96
== END 2024-01-13 17:50 | disposition home or self-care (01) ==
LOC: ED 14:50
DX: J20.8 Acute bronchitis due to other specified organisms (principal); J45.901 Unspecified asthma with (acute) exacerbation; R06.02 Shortness of breath; R09.81 Nasal congestion; R05.1 Acute cough; E78.5 Hyperlipidemia, unspecified; I10 Essential (primary) hypertension; Z79.52 Long term (current) use of systemic steroids; Z79.899 Other long term (current) drug therapy
CPT/HCPCS: 0241U; 36000; 36415; 71045; 80053; 83605; 83735; 83880; 84484; 85025; 87040; 93005; 93041; 94640; 99284; A9270-GY

== ENCOUNTER 2024-07-16 05:42 | Emergency (ER) | payer MEDICARE ==
[2024-07-16 05:56] VITALS: TEMP 97.7
--- NOTE | 2024-07-16 06:06 | ERPHSYRPT ---
- History of Present Illness Source: patient, family Exam Limitations: no limitations Patient Subjective Stated Complaint: c/o cough and shortness of breath Triage Nursing Assessment: patient brought into ED by with c/o cough that started 2 days ago. denies any pain, patient stated that she was prescribed prednisone and antibiotic that isn't work. patient did 3 breathing treatments this morning and states she doesn't feel any better. wheezing and crackles heard throughout, 95-97% on RA, gait steady, hypertensive, patient doesn't appear to be in any distress at this time. Timing/Duration: day(s), worse (Symptoms worse this morning) Severity of Dyspnea-Max: mild (Mild to moderate) Severity of Dyspnea-Current: mild (Mild to moderate) Possible Cause: occasional episodes Modifying Factors: Improves With: coughing Associated Symptoms: cough, chest pain/discomfort (Only with coughing), productive cough (Greenish sputum), No fever, No hemoptysis, No calf pain Hx Tetanus, Diphtheria Vaccination/Date Given: Yes Hx Influenza Vaccination/Date Given: No (allergic) Hx Pneumococcal Vaccination/Date Given: Yes <JU JACK - Last Filed: 07/16/24 06:35> <MATTHEW OLIVEIRA - Last Filed: 07/16/24 09:24> - History of Present Illness Time Seen by Provider: 07/16/24 05:55 Physician History: This is a 78-year-old white female patient who arrives by private vehicle accompanied by her spouse and is a patient of Dr. Flores with a complaint of cough and shortness of breath x 3 to 4 days. Patient has a history of COPD and asthma patient is taking Eliquis. She has a history of hypertension, anxiety, migraine headaches and hyperlipidemia. She has chest pain but only when she coughs. It is central and nonradiating. It is an achiness. Patient was given a prescription for prednisone 40 mg daily and inhaler 2 days ago from the outpatient clinic she went to. Her symptoms are no better and feels that maybe they are little worse. Her room air oxygen saturation levels are running anywhere between 95 to 97%. She is coughing up some greenish sputum. She is not taking her Symbicort or steroids this morning. The last doses of these were last evening. She took 3 nebulizer treatments prior to arrival, the most recent was 30 minutes prior to arrival. She has not had a fever. (JU JACK) Allergies/Adverse Reactions: doxycycline Allergy (Severe, Verified 07/16/24 05:47) kidney problems Penicillins Allergy (Unknown, Verified 07/16/24 05:47) influenza virus vaccine trivalent Allergy (Verified 07/16/24 05:47) Sulfa (Sulfonamide Antibiotics) [Sulfa(Sulfonamide Antibiotics)] Adverse Reaction (Verified 07/16/24 05:47) vomiting, dizziness flu vaccine Allergy (Severe, Uncoded 07/16/24 05:47) Swelling Home Medications: Apixaban [Eliquis 2.5 mg Tablet] 5 mg PO BID 06/08/22 [History] Lisinopril 20 mg [Zestril 20 MG] 40 mg PO DAILY 06/08/22 [History] Budesonide/Formoterol Fumarate [Symbicort 160-4.5 Mcg Inhaler] 2 inh PO BID 06/15/23 [History] ALPRAZolam 0.25 MG [xanAX 0.25 MG] 0.25 mg PO HS PRN 01/13/24 [History] Albuterol 2.5 mg/3 ml Neb [Proventil 2.5 mg/3 ml Neb] 1 vial NEB Q6H PRN PRN 01/13/24 [History] Albuterol 8 gm Mdi Hfa [Ventolin Hfa MDI] 2 puff PO Q6H PRN PRN 01/13/24 [History] Carvedilol [Coreg ] 6.25 mg PO BID 01/13/24 [History] Ezetimibe 10 mg [Zetia 10 MG] 10 mg PO DAILY 01/13/24 [History] Nitroglycerin 0.4 mg Tablet [Nitrostat 0.4 MG Tablet] 0.4 mg PO Q5MIN PRN MR X 3 PRN 01/13/24 [History] cephALEXin [Cephalexin] 500 mg PO TID 07/16/24 [History] Travel Risk - International Travel Have you traveled outside of the country in past 3 weeks: No - Emerging Infectious Disease Are you exhibiting symptoms associated with any current EIDs: Yes Symptoms: Cough: New Onset, Shortness of Breath <JU JACK - Last Filed: 07/16/24 06:35> - Review of Systems Constitutional: No Symptoms Eyes: No Symptoms Ears, Nose, & Throat: No Symptoms Respiratory: Cough, Dyspnea, Wheezing Cardiac: Chest Pain (Only with coughing) Abdominal/Gastrointestinal: No Symptoms Genitourinary Symptoms: No Symptoms Musculoskeletal: No Symptoms Skin: No Symptoms Neurological: No Symptoms Psychological: No Symptoms Endocrine: No Symptoms Hematologic/Lymphatic: No Symptoms Immunological/Allergic: No Symptoms All Other Systems: Reviewed and Negative <JU JACK - Last Filed: 07/16/24 06:35> - Past Medical History Pertinent Past Medical History: Yes Neurological History: Migraines ENT History: No Pertinent History Cardiac History: High Cholesterol, Hypertension Respiratory History: Asthma Endocrine Medical History: No Pertinent History Musculoskeletal History: No Pertinent History GI Medical History: Diverticulitis, Hemorrhoids History: No Pertinent History Psycho-Social History: Anxiety, Depression Female Reproductive Disorders: Fibroids - Past Surgical History Past Surgical History: Yes Neuro Surgical History: No Pertinent History Cardiac: No Pertinent History Respiratory: No Pertinent History Gastrointestinal: Cholecystectomy, Colon Resection Genitourinary: No Pertinent History Musculoskeletal: Orthopedic Surgery Female Surgical History: Hysterectomy Other Surgical History: fx rt shoulder 2012 w/ salo placed - Social History Smoking Status: Never smoker Exposure to second hand smoke: No Drug Use: none - Social Determinants of Health Will the patient participate in the screening: Yes Do you worry about a steady place to live?: No Do you have any problems with any of the following?: No known problems In the past 12 months,have you had to go without utilities?: No Transportation Issues: No Has anyone in your support network made you feel unsafe?: No Have you or anyone in your house had to go w/o enough food: No <JU JACK - Last Filed: 07/16/24 06:35> - Physical Exam General Appearance: mild distress, alert, anxiety Eye Exam: PERRL/EOMI, eyes nml inspection Ears, Nose, Throat Exam: hearing grossly normal, normal ENT inspection, normal pharynx Neck Exam: normal inspection, non-tender, supple, full range of motion Respiratory Exam: chest tenderness, airway intact, wheezing (Bilateral expiratory), No respiratory distress, No accessory muscle use Cardiovascular/Chest Exam: normal heart sounds, regular rate/rhythm Abdominal/Gastrointestinal Exam: soft, normal bowel sounds, No tenderness Extremity Exam: non-tender, normal range of motion, normal inspection Neurologic Exam: alert, oriented x 3, cooperative, step down nurse II-XII nml as tested, normal mood/affect, nml cerebellar function, nml station & gait, sensation nml Skin Exam: normal color, warm, dry Lymphatic Exam: No adenopathy SpO2 Interpretation: normal SpO2: 97 O2 Delivery: Room Air <JU JACK - Last Filed: 07/16/24 06:35> - Nursing Vital Signs Nursing Vital Signs: Initial Vital Signs Temperature 97.7 F 07/16/24 05:47 Pulse Rate 67 07/16/24 05:47 Respiratory Rate 19 07/16/24 05:47 Blood Pressure 197/109 07/16/24 05:47 O2 Sat by Pulse Oximetry 97 07/16/24 05:47 Pain Scale Pain Intensity 0 - Course Nursing assessment & vital signs reviewed: Yes <JU JACK - Last Filed: 07/16/24 06:35> Ordered Tests: Active Orders 24 hr Category Date Time Status District Fire Management Officer STAT Care 07/16/24 06:09 Active EKG-ER Only STAT Care 07/16/24 06:07 Active IV Insertion STAT Care 07/16/24 06:07 Active Pulse Oximetry (ED) STAT Care 07/16/24 06:07 Active CHEST 1 VIEW (PORTABLE) Stat Exams 07/16/24 06:08 Taken BLOOD CULTURE Stat Lab 07/16/24 07:30 Received CBC W DIFF Stat Lab 07/16/24 06:57 Completed CMP Stat Lab 07/16/24 06:57 Completed CULTURE,SPUTUM Stat Lab 07/16/24 06:37 Received Lactic Acid Stat Lab 07/16/24 06:07 Completed MAGNESIUM Stat Lab 07/16/24 06:57 Completed NT PRO BNPII Stat Lab 07/16/24 06:57 Completed TROPONIN Q4H Lab 07/16/24 06:57 Completed TROPONIN Q4H Lab 07/16/24 10:15 Ordered TROPONIN Q4H Lab 07/16/24 14:15 Ordered Respiratory Therapy Assessment DAILY RT 07/16/24 08:16 Active Medication Summary Discontinued Medications Generic Name Dose Route Start Last Admin Trade Name [place] PRN Reason Stop Dose Admin Hydrocodone Bitart/Acetaminophen 10 ml 07/16/24 06:29 07/16/24 06:39 Hydrocodone/Acetaminophen 5 Ml Udcup PO 07/16/24 06:30 10 ml STAT STA Administration Hydrocodone Bitart/Acetaminophen Confirm 07/16/24 06:39 Hydrocodone/Acetaminophen 5 Ml Udcup Administered 07/16/24 06:40 Dose 10 ml .ROUTE .STK-MED ONE Albuterol Sulfate 2.5 mg 07/16/24 08:04 Albuterol Solution 2.5 Mg/0.5 Ml Ud Solution IH 07/16/24 08:05 STAT ONE Albuterol Sulfate Confirm 07/16/24 08:14 Albuterol Sulfate 2.5 Mg/3 Ml Neb Administered 07/16/24 08:15 Dose 2.5 mg IH .STK-MED ONE Albuterol/Ipratropium 3 ml 07/16/24 08:04 Ipratropium/Albuterol Sulfate 3 Ml Ampul.Neb IH 07/16/24 08:05 STAT ONE Albuterol/Ipratropium Confirm 07/16/24 08:14 Ipratropium/Albuterol Sulfate 3 Ml Ampul.Neb Administered 07/16/24 08:15 Dose 3 ml IH .STK-MED ONE Methylprednisolone Sodium 0 mg 07/16/24 06:31 07/16/24 06:39 Succinate 125 mg/ Sterile IV 07/16/24 06:32 125 mg Water 2 ml STAT ONE Administration Methylprednisolone Sodium Succinate Confirm 07/16/24 06:39 Methylprednis Sod Succ 125 Mg/2 Ml Vial Administered 07/16/24 06:40 Dose 125 mg .ROUTE .STK-MED ONE Sterile Water Confirm 07/16/24 06:39 Water For Injection,Sterile 10 Ml Vial Administered 07/16/24 06:40 Dose 10 ml IJ .STK-MED ONE Lab/Rad Data: Laboratory Result Diagrams 07/16/24 06:57 07/16/24 06:57 Laboratory Results 07/16/24 07/16/24 07/16/24 Range/Units 07:32 06:57 06:57 WBC (3.98-10.04) x10^3/uL RBC (3.93-5.22) x10^6/uL Hgb (11.2-15.7) g/dL Hct (34.1-44.9) % MCV (79.4-94.8) fL MCH (25.6-32.2) pg MCHC (32.2-35.5) g/dL RDW (11.7-14.4) % Plt Count (182-369) x10^3/uL MPV (9.4-12.3) fL Gran % (34.0-71.1) % Immature Gran % (Auto) (0.001-0.429) % Nucleat RBC Rel Count (0.00-0.2) % Eos # (Auto) (0.04-0.36) x10^3/uL Immature Gran # (Auto) (0.001-0.031) x10^3u/L Absolute Lymphs (auto) (1.18-3.74) x10^3/uL Absolute Monos (auto) (0.24-0.86) x10^3/uL Absolute Nucleated RBC (0.00-0.012) x10^3u/L Lymphocytes % (19.3-51.7) % Monocytes % (4.7-12.5) % Eosinophils % (0.7-5.8) % Basophils % (0.1-1.2) % Absolute Granulocytes (1.56-6.13) x10^3/uL Basophils # (0.01-0.08) x10^3/uL Sodium 141 (135-145) mmol/L Potassium 3.8 (3.5-5.1) mmol/L Chloride 108 H (98-107) mmol/L Carbon Dioxide 24 (22-30) mmol/L Anion Gap 12.5 (5-15) MEQ/L BUN 15 (7-17) mg/dL Creatinine 0.66 (0.52-1.04) mg/dL Estimated GFR 89.2 ML/MIN Glucose 83 (74-106) mg/dL Lactic Acid (0.4-2.0) Calcium 8.8 (8.4-10.2) mg/dL Magnesium 2.1 (1.6-2.3) mg/dL Total Bilirubin 0.50 (0.2-1.3) mg/dL AST 36 (14-36) U/L ALT 25 (0-35) U/L Alkaline Phosphatase 77 (38-126) U/L Troponin I < 0.012 (0.000-0.033) ng/mL NT-Pro-B Natriuret Pep 434 (<300) pg/mL Serum Total Protein 6.1 L (6.3-8.2) g/dL Albumin 3.9 (3.5-5.0) g/dL Influenza Type A Ag NEGATIVE (NEGATIVE) Influenza Type B Ag NEGATIVE (NEGATIVE) RSV (PCR) NEGATIVE (NEGATIVE) SARS-CoV-2 (PCR) NEGATIVE (NEGATIVE) 07/16/24 07/16/24 Range/Units 06:57 06:07 WBC 8.3 (3.98-10.04) x10^3/uL RBC 4.21 (3.93-5.22) x10^6/uL Hgb 12.9 (11.2-15.7) g/dL Hct 39.2 (34.1-44.9) % MCV 93.1 (79.4-94.8) fL MCH 30.6 (25.6-32.2) pg MCHC 32.9 (32.2-35.5) g/dL RDW 13.9 (11.7-14.4) % Plt Count 188 (182-369) x10^3/uL MPV 10.0 (9.4-12.3) fL Gran % 69.8 (34.0-71.1) % Immature Gran % (Auto) 0.5 H (0.001-0.429) % Nucleat RBC Rel Count 0.0 (0.00-0.2) % Eos # (Auto) 0.02 L (0.04-0.36) x10^3/uL Immature Gran # (Auto) 0.04 H (0.001-0.031) x10^3u/L Absolute Lymphs (auto) 1.69 (1.18-3.74) x10^3/uL Absolute Monos (auto) 0.74 (0.24-0.86) x10^3/uL Absolute Nucleated RBC 0.00 (0.00-0.012) x10^3u/L Lymphocytes % 20.4 (19.3-51.7) % Monocytes % 8.9 (4.7-12.5) % Eosinophils % 0.2 L (0.7-5.8) % Basophils % 0.2 (0.1-1.2) % Absolute Granulocytes 5.78 (1.56-6.13) x10^3/uL Basophils # 0.02 (0.01-0.08) x10^3/uL Sodium (135-145) mmol/L Potassium (3.5-5.1) mmol/L Chloride (98-107) mmol/L Carbon Dioxide (22-30) mmol/L Anion Gap (5-15) MEQ/L BUN (7-17) mg/dL Creatinine (0.52-1.04) mg/dL Estimated GFR ML/MIN Glucose (74-106) mg/dL Lactic Acid 1.5 (0.4-2.0) Calcium (8.4-10.2) mg/dL Magnesium (1.6-2.3) mg/dL Total Bilirubin (0.2-1.3) mg/dL AST (14-36) U/L ALT (0-35) U/L Alkaline Phosphatase (38-126) U/L Troponin I (0.000-0.033) ng/mL NT-Pro-B Natriuret Pep (<300) pg/mL Serum Total Protein (6.3-8.2) g/dL Albumin (3.5-5.0) g/dL Influenza Type A Ag (NEGATIVE) Influenza Type B Ag (NEGATIVE) RSV (PCR) (NEGATIVE) SARS-CoV-2 (PCR) (NEGATIVE) <JU JACK - Last Filed: 07/16/24 06:35> - Progress Progress: improved Air Movement: fair <MATTHEW OLIVEIRA - Last Filed: 07/16/24 09:24> - Progress Progress Note: 07/16/24 06:41 My medical decision making and the assignment of moderate complexity to this patient's medical issue today is based on review of the patient's past medical history, review the patient's medication list, review the patient drug allergy list, history present illness and physical findings on examination. The workup in this patient includes placement of intravenous line, CBC, CMP, BNP, troponin level, twelve-lead EKG, chest x-ray, viral swabs. Will provide her with intravenous Solu-Medrol and hydrocodone acetaminophen elixir for cough control. Differential diagnosis includes but is not limited to pneumonia, upper respiratory infection, viral illness, congestive heart failure, myocardial infarction, arrhythmia I am transferring care of this patient to Dr. Oliveira at shift change. He will follow-up on the results of the test and make final disposition. (JU JACK) The patient was turned over to me at shift change. We are waiting on x-rays and labs and to see how she improved. I gave her another albuterol and DuoNeb treatment. She improved she was getting around 95% on room air. She was not in respiratory distress but did still have some coarse breath sounds with some expiratory wheezing. I discussed this at length with her. She decided to go home. She lives nearby. She does have a nebulizer at home. I am going to start her onPrednisone, also going to have her use her DuoNeb every 6 hours with albuterol in between up to every 2 hours if needed. I will also start her on aZ-[id number]. 07/16/24 09:20 (MATTHEW OLIVEIRA) Medical Desision Making - Independent Historian Additional History obtained from: Spouse <JU JACK - Last Filed: 07/16/24 06:35> - Risk of complications Low Risk: Low risk of morbidity from additional dx testing or treatment <MATTHEW OLIVEIRA - Last Filed: 07/16/24 09:24> - Departure Departure Disposition: Home Critical Care Time: No <JU JACK - Last Filed: 07/16/24 06:35> - Departure Critical Care Time: No <MATTHEW OLIVEIRA - Last Filed: 07/16/24 09:24> - Departure Clinical Impression: Cough, Shortness of breath, COPD exacerbation Condition: Stable Referrals: YANIRA FLORES MD [Primary Care Provider, [facility]] - Follow up/PCP as directed Instructions: Chronic Obstructive Pulmonary Disease Additional Instructions: Use the DuoNeb in your nebulizer every 6 hours. You can use albuterol every 2 hours in between those treatments. Start the prednisone and antibiotics. He can follow-up with your primary doctor return if symptoms worsen
[2024-07-16] MEDS: HYDROCODONE-ACETAMIN 2.5-108/5 ML SOLUTION PO STA (06:39)
[2024-07-16] MEDS ORDERED: Sterile H2O 10 ml IJ ONE (06:39)
[2024-07-16] MEDS: solu-MEDROL 125 MG, Sterile H2O 10 ml 2 ML IV ONE (06:39)
[2024-07-16] MEDS ORDERED: solu-MEDROL ONE (06:39)
[2024-07-16] MEDS ORDERED: HYDROCODONE-ACETAMIN 2.5-108/5 ML SOLUTION ONE (06:39)
[2024-07-16 07:04] LABS: Absolute Neutrophil Ct (ANC) 5.78 x10^3/uL (1.56-6.13); BASOPHIL % 0.2 % (0.1-1.2); Basophil (Absolute #) 0.02 x10^3/uL (0.01-0.08); Eosinophil % 0.2 % (0.7-5.8); Eosinophil (Absolute #) 0.02 x10^3/uL (0.04-0.36); Hematocrit 39.2 % (34.1-44.9); Hemoglobin 12.9 g/dL (11.2-15.7); IMMATURE GRAN # 0.04 x10^3u/L (0.001-0.031); IMMATURE GRAN % 0.5 % (0.001-0.429); Lymphocyte (Absolute #) 1.69 x10^3/uL (1.18-3.74); Lymphocytes % 20.4 % (19.3-51.7); Mean Cell Volume 93.1 fL (79.4-94.8); Mean Corpuscular Hemoglobin 30.6 pg (25.6-32.2); Mean Corpuscular Hgb Concent. 32.9 g/dL (32.2-35.5); Monocyte (Absolute #) 0.74 x10^3/uL (0.24-0.86); Monocytes % 8.9 % (4.7-12.5); Neutrophil % 69.8 % (34.0-71.1); Platelet Count 188 x10^3/uL (182-369); Red Blood Count 4.21 x10^6/uL (3.93-5.22); Red Cell Distribution Width 13.9 % (11.7-14.4); White Blood Count 8.3 x10^3/uL (3.98-10.04)
[2024-07-16 07:19] LABS: ALBUMIN 3.9 g/dL (3.5-5.0); ANION GAP 12.5 MEQ/L (5-15); BILIRUBIN,TOTAL 0.5 mg/dL (0.2-1.3); Calcium 8.8 mg/dL (8.4-10.2); Creatinine 1 0.66 mg/dL (0.52-1.04); EST GLOMERULAR FILTRATION RATE 89.2 ML/MIN; MAGNESIUM 2.1 mg/dL (1.6-2.3); Potassium 3.8 mmol/L (3.5-5.1); Total Protein 6.1 g/dL (6.3-8.2)
[2024-07-16 07:32] LABS: NT PRO BNPII 434 pg/mL (<300); TROPONIN < 0.012 ng/mL (0.000-0.033)
[2024-07-16] MEDS ORDERED: DUONEB 0.5-3 MG/3 ml Neb IH ONE ×2 (08:04→08:14)
[2024-07-16] MEDS ORDERED: PROVENTIL Solution 2.5 MG/0.5 ML IH ONE (08:04)
[2024-07-16 08:12] LABS: INFLUENZA A NEGATIVE (NEGATIVE); INFLUENZA B NEGATIVE (NEGATIVE); RESPIRATORY SYNCTIAL VIRUS NEGATIVE (NEGATIVE); SARS-CoV-2 Xpert Express NEGATIVE (NEGATIVE)
[2024-07-16] MEDS ORDERED: PROVENTIL 2.5 MG/3 ML NEB IH ONE (08:14)
[2024-07-16 09:24] VITALS: BP 173/74; PULSE 68; RESP 14; O2SAT 98
[2024-07-16] MEDS ORDERED: Zithromax 250 MG TABLET ONE (09:29)
[2024-07-16] MEDS: Zithromax 250 MG TABLET PO ONE (09:29)
--- NOTE | 2024-07-16 23:28 | XRAY ---
Indication: Cough. Short of breath. Comparison: January 13, 2024. Portable chest remains inflated and clear. Heart not enlarged. Bony thorax intact again with osteopenia, degenerative changes, and incompletely visualized old right humerus fracture. No new/acute findings.
== END 2024-07-16 09:37 | disposition home or self-care (01) ==
LOC: ED 05:42
DX: J44.1 Chronic obstructive pulmonary disease with (acute) exacerbation (principal); R05.1 Acute cough; R06.02 Shortness of breath; I10 Essential (primary) hypertension; E78.5 Hyperlipidemia, unspecified; Z79.01 Long term (current) use of anticoagulants; Z79.52 Long term (current) use of systemic steroids; Z79.899 Other long term (current) drug therapy
CPT/HCPCS: 0241U; 36415; 71045; 80053; 83605; 83735; 83880; 84484; 85025; 87040; 87070; 93005; 93041; 94760; 96374; 99285; 99284; J2919; J7609; A9270-GY